=== PATIENT | female | born 1930 | race Caucasian/White ===

== ENCOUNTER 2016-11-12 11:15 | Inpatient (IN) | payer OTHER, MEDICARE ==
[~2016-11-12] VITALS: Ht 152.4 cm; Wt 63.5 kg
[~2016-11-12 11:15] MED LIST: ACIDOPHILUS1 CAP PO; ALOPHEN5 MG PO; ANTIVERT 25 MG25 MG PO; ASPIRIN CHILDRE81 MG PO; ATORVASTATIN CA20 MG PO; ATORVASTATIN CA40 MG PO; AUGMENTIN 500M500 MG PO; CHLORASEPTIC S177 ML PO; DOXYCYCLINE100 MG PO; DRISDOL50000 IU PO; DULCOLAX10 MG PR; DULCOLAX5 MG PO; EPIPEN AUT0.3 MG/0.3 IM; FERATE28 MG PO; FERROUS SULFAT325 M1 PO; FISH OIL500 MG PO; FLEET ENEMA 131 UNIT RC; FOLIC ACID 1 MG PO; FOSAMAX 70MG70 MG PO; IRON325 M1 PO; LEVOTHYROXIN0.025 MG PO; LEVOTHYROXINE0.05 M1 PO; LIDODERM 5% PAT1 PAT EXT; LIDODERM 5% PAT1 PAT TOP; METOPROLOL SUCC25 MG PO; MILK OF MAGNESI30 ML PO; MIRALAX17 GM PO; MUCINEX ER600 MG PO; MULTIVITAMIN1 TAB PO; MYCOSTATIN POWD15 GM TOP; OMEPRAZOLE40 MG PO; OXYCONTIN10 MG PO; PREDNISONE10 MG PO; ROXICODONE5 MG PO; SENNA CON/DOCUS1 TAB PO; Senokot S PO; TUMS500 MG PO; TYLENOL500 MG PO; VITAMIN C500 M3 PO; ZINC50 M1 PO
--- NOTE | 2016-11-12 11:30 | NUR ---
PT JOE FROM HOME FOR SOB THAT STARTED THIS MORNING. SHE WENT TO A SCHEDULED DR BAUER WITH DR SCOTT BECAUSE SHE HAS HAD A COLD X 4-5. PT STATES HER HAD IT FIRST AND [facility] AND [facility]. LUNGS ARE DECREASED B/L AND O2 SATS ARE 97% ON 4LNC
--- NOTE | 2016-11-12 11:31 | ED GENERAL ADULT ---
History of Present Illness General Chief Complaint: Dyspnea (COPD, CHF, Other) Stated Complaint: BIBA SOB Source: patient, family Exam Limitations: patient's age, poor historian, physical impairment Vital Signs & Intake/Output Vital Signs & Intake/Output Vital Signs Date Time Temp Pulse Resp B/P Pulse O2 O2 Flow FiO2 Ox Delivery Rate 11/12 1812 96.8 65 22 130/60 96 Nasal 2.0L Cannula 11/12 1652 96.3 67 22 148/67 98 Nasal 3.0L Cannula 11/12 1613 97.5 67 22 120/62 94 Nasal 2.0L Cannula 11/12 1434 97.8 81 20 132/64 96 Nasal 4.0L Cannula 11/12 1259 88 18 184/77 94 Room Air 11/12 1249 98 Nasal 4.0L Cannula 11/12 1128 99.8 86 24 159/80 97 Nasal 4.0L Cannula Allergies Coded Allergies: codeine (UNKNOWN 11/12/16) Cephalosporins (Intermediate, DIARRHEA 11/12/16) Reconcile Medications Alendronate Sodium 70 MG TABLET 1 TAB PO QW BONES (Reported) in the morning, at least 30 minutes before the first food, beverage, or medication of the day Aspirin (Ecotrin*) 81 MG TABLET.DR 1 TAB PO DAILY HEART (Reported) Atorvastatin Calcium 20 MG TABLET 1 TAB PO DAILY CHOLESTEROL (Reported) Ferrous Sulfate 325 MG (65 MG IRON) TABLET 1 TAB PO DAILY SUPPLEMENT ( Reported) Fish Oil/Borage/Flax/Om3,6,9#1 (Trent 3-6-9 1,200 MG Softgel) 1,200 MG CAPSULE 1 CAP PO DAILY SUPPLEMENT (Reported) Folic Acid 1 MG TABLET 1 TAB PO DAILY SUPPLEMENT (Reported) Levothyroxine Sodium 25 MCG TABLET 1 TAB PO DAILY THYROID (Reported) Metoprolol Succinate 25 MG TAB 1 TAB PO DAILY HEART/BP (Reported) Omeprazole 40 MG CAPSULE.DR 1 CAP PO DAILY GI (Reported) Sennosides (Senna) 8.6 MG TABLET 2 TAB PO DAILY SUPPLEMENT (Reported) Triage Note: PT BIBA FROM HOME FOR SOB THAT STARTED THIS MORNING. SHE WENT TO A SCHEDULED DR APPT WITH DR SCOTT BECAUSE SHE HAS HAD A COLD X 4-5. PT STATES HER HAD IT FIRST AND WENT TO THE [facility] AND WAS TOLD HE HAD THE FLU. LUNGS ARE DECREASED B/L AND O2 SATS ARE 97% ON 4LNC Triage Nurses Notes Reviewed? yes Onset: Abrupt Duration: day(s): Timing: recent history HPI: 11/12/16 86-year-old female presents to the emergency department with difficulty breathing for several days. The onset of the symptoms was abrupt, the duration was several days, the severity was significant as her symptoms required her to come to the emergency department for care. She does admit to a cough that is nonproductive, no chest pain. Subjective fever. Past History Travel History Traveled to [place] past 21 day No Medical History Any Pertinent Medical History? see below for history Neurological: multiple sclerosis EENT: vocal cord paralysis Cardiovascular: hypertension, HYPERCOLESTERALEMIA Respiratory: NONE Gastrointestinal: GERD, CONSTIPATION Hepatic: hepatitis B Musculoskeletal: OSTEOARTHRITIS STAGE II PRESSURE ULCER Psychiatric: NONE Endocrine: NONE Blood Disorders: DENIES Cancer(s): melanoma TUBE HEATER/Reproductive: NONE Other Medical Hx: MS - wheelchair bound, osteoporosis History of MRSA: No History of VRE: Yes History of CDIFF: No Surgical History Surgical History: non-contributory Psychosocial History Who do you live with Spouse Services at Home Home Health Aide, Nursing What is your primary language Latvian Tobacco Use: Never used ETOH Use: denies use Illicit Drug Use: denies illicit drug use Family History Family History, If Any: MOTHER FH: breast cancer FH: lung cancer FATHER FH: tuberculosis Hx Contributory? No Review of Systems Review of Systems Constitutional: Reports: fever. EENTM: Reports: nasal congestion. Respiratory: Reports: short of breath. Cardiovascular: Denies: chest pain. GI: Denies: abdominal pain. Genitourinary: Reports: no symptoms. Musculoskeletal: Reports: no symptoms. Skin: Reports: no symptoms. Neurological/Psychological: Reports: weakness. Hematologic/Endocrine: Reports: no symptoms. Physical Exam Physical Exam General Appearance: alert, awake, anxious, mild distress Head: atraumatic, normal appearance Eyes: Bilateral: normal appearance, PERRL, EOMI. Ears, Nose, Throat: nasal congestion Neck: normal inspection, supple, full range of motion Respiratory: chest non-tender, decreased breath sounds, accessory muscle use, rhonchi Cardiovascular: regular rate/rhythm Peripheral Pulses: 4+ radial (R), 4+ radial (L) Gastrointestinal: non-tender Back: decreased range of motion Extremities: pedal edema Neurologic/Psych: awake, alert, oriented x 3 Skin: intact, normal color, warm/dry Core Measures ACS in differential dx? Yes CVA/TIA Diagnosis: No Severe Sepsis Present: No Septic Shock Present: No Progress Differential Diagnoses I considered the following diagnoses in my evaluation of the patient: [Pneumonia , CHF, PE, acute coronary syndrome, pneumothorax] Plan of Care: Orders Procedure Date/time Status LIPID PANEL 11/13 0600 Active CBC WITHOUT DIFFERENTIAL 11/13 0600 Active BASIC ELECTROLYTES PLUS BUN&CR 11/13 0600 Active Heart Healthy Diet 11/12 D Active TROPONIN LEVEL 11/12 1730 Active EKG 11/12 1730 Active ARTERIAL BLOOD GAS (GEN) 11/12 1711 Complete Pathway - chart 11/12 1537 Active Patient Data 11/12 1440 Active Admit to inpatient 11/12 1433 Active Vital Signs 11/12 1433 Active Intake & Output 11/12 1433 Active Code Status 11/12 1433 Active VIRAL CULTURE 11/12 1146 Active RAPID VIRAL INFLUENZA A 11/12 1141 Complete TROPONIN LEVEL 11/12 1141 Complete COMPREHENSIVE METABOLIC PANEL 11/12 1141 Complete CBC WITHOUT DIFFERENTIAL 11/12 1141 Complete EKG 11/12 1120 Active TRC EVALUATION (GEN) 11/12 UNK Active Pathway - chart 11/12 UNK Active House Staff 11/12 UNK Active VTE Mechanical Prophylaxis 11/12 UNK Active CASE MANAGEMENT CONSULT 11/12 UNK Active Current Medications Sig/Tonya Start time Last Medication Dose Stop Time Status Admin Multivitamins 1 TAB DAILY 11/13 1000 AC (Theragran Vitamins) Laboratory Tests 11/12/16 1755: pH 7.30 *L, pCO2 47 H, pO2 75 L, HCO3 23, ABG O2 Sat (Measured) 94.0 L, Carboxyhemoglobin 0.2 L, O2 Concentration % 2L, O2 Delivery Method N/C, Phlebotomy Draw Site RIGHT RADIAL 11/12/16 1150: Anion Gap 11, Estimated GFR 36 L, BUN/Creatinine Ratio 16.4, Glucose 100 H, Calcium 7.7 L, Total Bilirubin 0.4, AST 56 H, ALT 58 H, Alkaline Phosphatase 89, Troponin I 0.87 *H, Total Protein 6.6, Albumin 3.5, Globulin 3.1, Albumin/ Globulin Ratio 1.1, CBC w Diff NO MAN DIFF REQ, RBC 3.71 L, MCV 87.4, MCH 28.5, RDW 16.3 H, MPV 7.3 L, Gran % 69.0, Lymphocytes % 19.7 L, Monocytes % 10.9 H , Eosinophils % 0.1, Basophils % 0.3, Absolute Granulocytes 3.7, Absolute Lymphocytes 1.1 L, Absolute Monocytes 0.6, Absolute Eosinophils 0, Absolute Basophils 0, PUBS MCHC 32.7 L 11/12/16 1146: Virus Culture Pending Initial ED EKG: nonspecific ST T wave chg Prior EKG: unchanged Departure Departure Disposition: STILL A PATIENT Condition: Stable Clinical Impression Primary Impression: NSTEMI (non-ST elevated myocardial infarction) Secondary Impressions: Bronchitis, Dyspnea, Influenza Referrals: TYLER JANG,JAKUB Hernández (PCP/Family) Departure Forms: Customer Survey General Discharge Information Comments cxr results below PATIENT: LUIS TRIMBLE PRESENT AGE: 86 PATIENT ACCOUNT NO: [id number] : 29 LOCATION: [facility] ORDERING PHYSICIAN: AWA BARFIELD DO SERVICE DATE: 11/12/16 EXAM TYPE: RAD - XRY-PORTABLE CHEST XRAY EXAMINATION: XR PORTABLE CHEST CLINICAL INFORMATION: Productive cough COMPARISON: April 05, 2015 and studies dating back to June 17, 2013 TECHNIQUE: Portable AP view of the chest was obtained. FINDINGS: Film rotated making evaluation of mediastinal difficult. There appears be some minor atelectasis at the left base. Patient status post previous axillary surgery. No pneumothorax or significant pleural effusion is seen. The cardiopericardial silhouette appears enlarged. No evidence of pulmonary edema. IMPRESSION: Left base disease which may be related to atelectasis or small focus of pneumonitis. Cardiomegaly without pulmonary edema. DICTATED BY: LARISSA CANSECO MD DATE/TIME DICTATED:11/12/161233 PIE CHEF:XIOMARA DATE/TIME TRANSCRIBED:11/12/161233 CONFIDENTIAL, DO NOT COPY WITHOUT APPROPRIATE AUTHORIZATION. <Electronically signed in Other Vendor System> SIGNED BY: LARISSA CANSECO MD 11/12/16 1241 Admission Note Spoke With: CAMELIA ERICKSON MD Documentation of Exam: Documentation of any treatments & extenuating circumstances including Concerns Regarding Discharge (functional status, medication knowledge or non-compliance, living conditions, etc.) that warrant an admission rather than observation: [The patient needs admission for telemetry monitoring, cardiology consultation, serial troponins and EKGs, inpatient echocardiogram, she also needs nebulizer treatments and Tamiflu. Discharge at this time would be unsafe as she had a non -ST segment elevation CO.] Critical Care Note Critical Care Note Critical Care Time: 30-74 min Comments: She was placed on a monitor. She was given aspirin. She was given albuterol and Atrovent nebulizers. She was treated with IV Solu-Medrol. She was seen and evaluated by the boston cutter in the emergency department. She is being admitted to the telemetry unit for further care.
--- NOTE | 2016-11-12 11:34 | NUR ---
PT HAS PRODUCTIVE COUGH ALSO. DENIES CP
--- NOTE | 2016-11-12 11:47 | NUR ---
FLU SWAB SENT
[2016-11-12 11:59] LABS: ABSOLUTE BASOPHIL COUNT 0 /CUMM (0.0-0.2); ABSOLUTE EOSINOPHIL COUNT 0 /CUMM (0.0-0.7); ABSOLUTE GRANULOCYTE CT 3.7 /CUMM (1.4-6.5); ABSOLUTE LYMPH COUNT 1.1 /CUMM (1.2-3.4); ABSOLUTE MONOCYTE COUNT 0.6 /CUMM (0.10-0.60); BASOPHIL % 0.3 % (0.0-2.0); EOSINOPHIL % 0.1 % (0-5); HEMATOCRIT 32.4 % (37-47); MEAN CORPUSCULAR HGB 28.5 PG (27.0-31.0); MEAN CORPUSCULAR HGB CONC 32.7 G/DL (33.0-37.0); MEAN CORPUSCULAR VOLUME 87.4 FL (81.0-99.0); MEAN PLATELET VOLUME 7.3 FL (7.4-10.4); PLATELET COUNT 240 /CUMM (130-400); RBC DISTRIBUTION WIDTH 16.3 % (11.5-14.5); RED BLOOD CELL CT 3.71 /CUMM (4.20-5.40); WHITE BLOOD CELL COUNT 5.4 /CUMM (4.8-10.8)
--- NOTE | 2016-11-12 12:07 | NUR ---
DR BARFIELD AT BEDSIDE FOR EVAL
--- NOTE | 2016-11-12 12:13 | NUR ---
PCXR AT BEDSIDE
--- NOTE | 2016-11-12 12:18 | NUR ---
CRITICAL TEST RESULTS [id number] LUIS TRIMBLE 86 F TESTS AND RESULTS: FLU A Results received and read back by: ASHKAN QUINONES Results received date and time: 11/12/16 1218 The following provider was notified of the results, and read the results back: DR BARFIELD Notified date and time: 11/12/16 at 1216
--- NOTE | 2016-11-12 12:34 | NUR ---
RT CALLED FOR TX
--- NOTE | 2016-11-12 12:41 | RADIOLOGY REPORT ---
EXAMINATION: XR PORTABLE CHEST CLINICAL INFORMATION: Productive cough COMPARISON: April 05, 2015 and studies dating back to June 17, 2013 TECHNIQUE: Portable AP view of the chest was obtained. FINDINGS: Film rotated making evaluation of mediastinal difficult. There appears be some minor atelectasis at the left base. Patient status post previous axillary surgery. No pneumothorax or significant pleural effusion is seen. The cardiopericardial silhouette appears enlarged. No evidence of pulmonary edema. IMPRESSION: Left base disease which may be related to atelectasis or small focus of pneumonitis. Cardiomegaly without pulmonary edema.
--- NOTE | 2016-11-12 12:45 | NUR ---
PT MEDICATED WITH 125 MG SOLUMEDROL IV. RT AT BEDSIDE FOR NEB TX
--- NOTE | 2016-11-12 13:15 | NUR ---
CRITICAL TEST RESULTS [id number] LUIS TRIMBLE F TESTS AND RESULTS: TROP 0.87 Results received and read back by: RICK GONZALEZ Results received date and time: 11/12/16 1315 The following provider was notified of the results, and read the results back: Notified date and time: 11/12/16 at 1316
--- NOTE | 2016-11-12 13:31 | NUR ---
LUNG SOUNDS NOT TIGHT PRIOR TO TX. DR BARFIELD AWARE THAT ADDITIONAL NEB NEEDED
--- NOTE | 2016-11-12 13:44 | NUR ---
DR BARFIELD AT BEDSIDE FOR POC
--- NOTE | 2016-11-12 14:53 | History & Physical ---
CHEMO OLSON MD 11/12/16 1453: General Information and HPI MD Statement: I have seen and personally examined LUIS TRIMBLE and documented this H&P. The patient is a 86 year old F who presented with a patient stated chief complaint of [shortness of breath]. Source of Information: patient Exam Limitations: no limitations History of Present Illness: 86-year-old female with PMH of HTN, HLD, MS, hep B, GERD, constipation, CKD, presented with "cold for 4-5 days" and worsening shortness of breath since this morning. She went to see her PCP this morning, and was told to have a fever of 102 (pt not sure if she remembers correctly) and was put on oxygen and told to come to ED. She was noticably short of breath at rest while examined, and also appeared somnolent, but oriented and responded to questions appropriately. Both her and her did not get the flu shot this year. Her had the flu last week. He was not treated for the flu. She has cough productive of white sputum, that started on friday. She took cough suppresant yesterday with some relief. She started having wheezing this morning. She was not able to sleep and eat for the past couple of days (since friday) due to dry heaves, which she is not having currently. Denies chills, myalgia (has chronic bilateral leg ache). Given her MS, she ambulates with a wheelchair, and she has certified home health aide that comes twice a day. She lives with her . She has hoarse voice at baseline. Allergies/Medications Allergies: Coded Allergies: codeine (UNKNOWN 11/12/16) Cephalosporins (Intermediate, DIARRHEA 11/12/16) Home Med list Alendronate Sodium 70 MG TABLET 1 TAB PO QW BONES (Reported) in the morning, at least 30 minutes before the first food, beverage, or medication of the day Aspirin (Ecotrin*) 81 MG TABLET.DR 1 TAB PO DAILY HEART (Reported) Atorvastatin Calcium 20 MG TABLET 1 TAB PO DAILY CHOLESTEROL (Reported) Ferrous Sulfate 325 MG (65 MG IRON) TABLET 1 TAB PO DAILY SUPPLEMENT ( Reported) Fish Oil/Borage/Flax/Om3,6,9#1 (Bern 3-6-9 1,200 MG Softgel) 1,200 MG CAPSULE 1 CAP PO DAILY SUPPLEMENT (Reported) Folic Acid 1 MG TABLET 1 TAB PO DAILY SUPPLEMENT (Reported) Levothyroxine Sodium 25 MCG TABLET 1 TAB PO DAILY THYROID (Reported) Metoprolol Succinate 25 MG TAB 1 TAB PO DAILY HEART/BP (Reported) Omeprazole 40 MG CAPSULE.DR 1 CAP PO DAILY GI (Reported) Sennosides (Senna) 8.6 MG TABLET 2 TAB PO DAILY SUPPLEMENT (Reported) Past History Travel History Traveled to [place] past 21 day No Medical History Neurological: multiple sclerosis EENT: vocal cord paralysis Cardiovascular: hypertension, HYPERCOLESTERALEMIA Respiratory: NONE Gastrointestinal: GERD, CONSTIPATION Hepatic: hepatitis B Musculoskeletal: OSTEOARTHRITIS STAGE II PRESSURE ULCER Psychiatric: NONE Endocrine: NONE Blood Disorders: DENIES Cancer(s): melanoma RN PRIVATE DUTY/Reproductive: NONE Other Medical Hx: MS - wheelchair bound, osteoporosis History of MRSA: No History of VRE: Yes History of CDIFF: No Surgical History Surgical History: non-contributory Past Family/Social History Family History Relations & Conditions if any MOTHER FH: breast cancer FH: lung cancer FATHER FH: tuberculosis Psychosocial History Where do you live? Home Services at Home: Home Health Aide, Nursing ETOH Use: denies use Illicit Drug Use: denies illicit drug use Functional Ability Ambulation: wheelchair due to MS Review of Systems Review of Systems Constitutional: Denies: chills, fever. EENTM: Denies: visual changes. Cardiovascular: Denies: chest pain, palpitations. Respiratory: Reports: cough, short of breath, sputum production. GI: Denies: abdominal pain, bloating, constipation, diarrhea. Genitourinary: Denies: dysuria. Exam & Diagnostic Data Last 24 Hrs of Vital Signs/I&O Vital Signs Date Time Temp Pulse Resp B/P Pulse O2 O2 Flow FiO2 Ox Delivery Rate 11/12 1812 96.8 65 22 130/60 96 Nasal 2.0L Cannula 11/12 1652 96.3 67 22 148/67 98 Nasal 3.0L Cannula 11/12 1613 97.5 67 22 120/62 94 Nasal 2.0L Cannula 11/12 1434 97.8 81 20 132/64 96 Nasal 4.0L Cannula 11/12 1259 88 18 184/77 94 Room Air 11/12 1249 98 Nasal 4.0L Cannula 11/12 1128 99.8 86 24 159/80 97 Nasal 4.0L Cannula Intake & Output 02/14 1600 11/12 0800 11/12 0000 Intake Total 50 Output Total 200 Balance -150 Intake, Oral 50 Output, Urine 200 Patient 64.41 kg Weight Physical Exam General Appearance Alert, Oriented X3, Cooperative, noticably short of breath Skin No Significant Lesion HEENT Atraumatic Neck Supple Lymphatic Axillary nl, Cervical nl Cardiovascular Regular Rate, Normal S1, Normal S2, No Murmurs, Gallops, Rubs Lungs diffuse wheezing and rhonchi Abdomen Normal Bowel Sounds, Soft, No Tenderness Neurological Normal Speech Extremities 2+ pitting edema Last 24 Hrs of Labs/Ron: Laboratory Tests 11/12/16 1755: pH 7.30 *L, pCO2 47 H, pO2 75 L, HCO3 23, ABG O2 Sat (Measured) 94.0 L, Carboxyhemoglobin 0.2 L, O2 Concentration % 2L, O2 Delivery Method N/C, Phlebotomy Draw Site RIGHT RADIAL 11/12/16 1745: Troponin I 0.72 *H 11/12/16 1150: Anion Gap 11, Estimated GFR 36 L, BUN/Creatinine Ratio 16.4, Glucose 100 H, Calcium 7.7 L, Total Bilirubin 0.4, AST 56 H, ALT 58 H, Alkaline Phosphatase 89, Troponin I 0.87 *H, Total Protein 6.6, Albumin 3.5, Globulin 3.1, Albumin/ Globulin Ratio 1.1, CBC w Diff NO MAN DIFF REQ, RBC 3.71 L, MCV 87.4, MCH 28.5, RDW 16.3 H, MPV 7.3 L, Gran % 69.0, Lymphocytes % 19.7 L, Monocytes % 10.9 H , Eosinophils % 0.1, Basophils % 0.3, Absolute Granulocytes 3.7, Absolute Lymphocytes 1.1 L, Absolute Monocytes 0.6, Absolute Eosinophils 0, Absolute Basophils 0, PUBS MCHC 32.7 L 11/12/16 1146: Virus Culture Pending Diagnostic Data EKG Results T wave flattening V2-V5 CXR Results IMPRESSION: Left base disease which may be related to atelectasis or small focus of pneumonitis. Cardiomegaly without pulmonary edema. Assessment/Plan Assessment: 86-year-old female with PMH of HTN, HLD, MS, hep B, GERD, constipation, CKD, presented with "cold for 4-5 days" and worsening shortness of breath since this morning. Trop found to be elevated at 0.87 with T wave flattening in V2-V5. Problem list: # Troponinemia most likely demand ischemia vs renal dysfunction # Positive flu # Mild transaminitis # Chronic kidney disease #Troponinemia most likely demand ischemia vs renal dysfunction - Last echo december 2014: stage 1 diastolic dysfunction, LVEF > 65% - Trop 0.87 --> 0.72 * Serial EKG and trop * Dr. Gongora consulted * Consider repeat echo * Start Aspirin # Positive flu * Tamiflu # Mild transaminitis - AST 56 ALT 58. Was 26 and 21 in May 2016 # Chronic kidney disease - BUN/Cr: 23H/1.4H. Was 23/1.3 in May 2016 # Hypertension * Continue metoprolol succinate 25 mg daily # Hyperlipidemia * Continue atorvastatin 20 daily # Hypothyroidism * Continue levothyroxine 25 mg daily # Home meds * Continue senna * Continue fish oil, folic acid, iron * Continue alendronate weekly (qmon) * Continue aspirin 81 mg daily * Continue omeprazole 40 mg daily Diet: heart healthy DVT ppx: mech and pharm DNR/DNI As Ranked By This Provider Problem List: 1. Influenza 2. NSTEMI (non-ST elevated myocardial infarction) Core Measures/Miscellaneous Acute Coronary Syndrome ACS Diagnosis: Yes Cerebrovascular Accident CVA/TIA Diagnosis: No Congestive Heart Failure CHF Diagnosis: No Venous Thromboembolism VTE Risk Factors: Acute medical illness, Age > 40 VTE Prophylaxis Ordered Inpt: Mech & Pharm No Mech VTE prophylaxis d/t: No contraindications No VTE Pharm Prophylaxis d/t: No contraindications VTE Diagnosis: No VTE Type: NONE VTE Confirmed by (Test): NONE Severe Sepsis Severe Sepsis Present: No Septic Shock Septic Shock Present: No Miscellaneous Documentation Attending Case Discussed With: Dr. Alva Primary Care Physician: TYLER JANG,JAKUB Hernández Patient sees these Specialists Dr. Gongora cardiology Dr. Orosco neurology Dr. Guardado pulmonology Level of Patient Care: Telemetry BENI CERVANTES 11/12/161938: Resident Review Statement Resident Statement: examined this patient, discussed with internist medical doctor md, agreed with internist medical doctor md Other Findings: is an 86 yo women with PMHx. of MS (Wheelchair bound), HTN, HLD, hep B, CKD, who presented to ed with c/o of SOB since Friday. Patient has progressively worsening SOB, associated with cough, worse at night, she had sick contact with her who diagnosed with FLU last week. She report loss of appetite with dry heaves. She denies fever, chills, chest pain, palpitation, dysphagia, and there is no change of urinary or bowel habit. she tried cough suryp at home with minimal benifit. Her vitals was stable except for low grade fever 99.8, mildly elevated BP. On examination: she is in sever distress, awake, alert chest: bilateral ronchi cvs: s1, s2 BL lE: normal pulse, no edema Labs pertinent to normocytic anemia, BUN 23, CREAT:1.4, GLUCOSE:100, corrected ca: 8.1 Troponin: 0.87 CXR:Left base disease which may be related to atelectasis or small focus of pneumonitis. Cardiomegaly without pulmonary edema. Assessment and plan: #Acute bronchitis 2/2 infleunza #Elevated troponin #CKD Plan: Will admitt the patient to telemetry floor Serial troponin and EKG Will start Tamiflu, renally adjusted Cardiology consult Echocardiogram Sputum Cx DVT ppx: sc heparin DNR/DNI FOX ALVA MD 11/12/16 2240: Attending MD Review Statement Attending Statement Attending MD Statement: examined this patient, discuss w/resident/PA/CIRCULAR KNITTER, agreed w/resident/PA/CIRCULAR KNITTER, reviewed EMR data (avail), discussed with nursing, amended to note Attending Assessment/Plan: Patient is an 86-year-old female with history of DVT not on anticoagulation who presents to the ED with complaints of shortness of breath. On arrival she was awake dysphagia, to staff. A history significant for currently influenza infection in her . She was tested for influenza emergency room and tested positive. Laboratory data also revealed mildly elevated troponins with nonspecific T-wave abnormalities in her inferior leads. She was started on Tamiflu and referred to the inpatient medical service for further management. While in the emergency room she became more lethargic according to nursing staff. When I evaluated the patient was markedly lethargic. She was arousable. She denied pain. He did admit to shortness of breath. She has no jugular distention on exam. Breath sounds are diminished but otherwise clear to auscultation. Abdomen was soft and nontender. She has bilateral 1+ pedal edema. Problems: 1. Acute bronchitis secondary to influenza. 2. Abnormal troponins likely secondary to demand ischemia 3. Metabolic encephalopathy likely secondary to poor. 4. Chronic kidney disease 5. History of deep vein thrombosis Plan: -Admit to the inpatient medical service. -Place on telemetry monitoring, trend troponins, obtain cardiology consultation. -ABG ordered. Recommended BiPAP therapy overnight if she is retaining CO2 -We'll discuss goals of care with the family.
--- NOTE | 2016-11-12 15:15 | NUR ---
PT HAS BED ASSIGNMENT 176-1
--- NOTE | 2016-11-12 15:48 | NUR ---
HOUSE STAFF AT BEDSIDE
[2016-11-12] MEDS ORDERED: LEVOTHYROXINE25 MCG PO (16:30)
[2016-11-12] MEDS ORDERED: ATORVASTATIN CA20 M1 PO (16:30)
[2016-11-12] MEDS ORDERED: OMEPRAZOLE40 M1 PO (16:31)
[2016-11-12] MEDS ORDERED: METOPROLOL SUCC25 M1 PO (16:31)
[2016-11-12] MEDS ORDERED: ALENDRONATE SOD70 M2 PO (16:32)
[2016-11-12] MEDS ORDERED: FOLIC ACID1 M1 PO (16:33)
--- NOTE | 2016-11-12 16:48 | NUR ---
REPORT CALLED TO [facility] ON 1N, TRANSPORT BOOKED.
--- NOTE | 2016-11-12 17:06 | NUR ---
DR ENGEL AT BEDSIDE
--- NOTE | 2016-11-12 17:31 | NUR ---
DR IRVIN AT BEDSIDE
--- NOTE | 2016-11-12 17:33 | NUR ---
PER MED STUDENT - PT'S DAUGHTER BROUGHT IN HER MEDS
[2016-11-12] MEDS ORDERED: ASPIRIN EC81 M1 PO (17:39)
[2016-11-12] MEDS ORDERED: OMEGA 3-6-9 11200 MG PO (17:41)
[2016-11-12] MEDS ORDERED: FERROUS SULFAT325 M3 PO (17:42)
[2016-11-12] MEDS ORDERED: SENNA8.6 M3 PO (17:42)
--- NOTE | 2016-11-12 17:49 | NUR ---
RT CALLED AGAIN FOR AMG AND AT BEDSIDE
--- NOTE | 2016-11-12 17:50 | Cons- Cardiology ---
General Information and HPI Consulting Request Date of Consult: 11/12/16 Requested By: CAMELIA ERICKSON MD Reason for Consult: Positive troponin in a patient admitted with influenza and bronchitis. Source of Information: patient, family, old records Exam Limitations: poor historian History of Present Illness: I am asked to see this 86-year-old female because of abnormal troponin in the setting of a respiratory illness and influenza. I have seen her couple of times in the hospital but not followed her actively in the office. Her last admission was about 2 years ago. At that time she came in with respiratory distress and hypoxia. Her cardiac evaluation was negative including negative cardiac enzymes and echocardiogram that showed LVH with good left ventricular systolic function, some thickening of her mitral and aortic valves. On a previous admission about a year prior she had one single mildly abnormal troponin and again an echocardiogram did not show any major abnormalities. The patient has underlying multiple sclerosis and is some somewhat disabled. Her apparently has been sick with influenza for the past couple of days and today the patient complained of difficulty breathing and was brought to the emergency room. There she was found to be positive for influenza as well and her initial troponin is 0.87. Her EKG does not show any significant abnormalities. The patient is not complaining of chest pain. The patient is lethargic and unable to give a good history but her daughter was present and was able to fill in details. Allergies/Medications Allergies: Coded Allergies: codeine (UNKNOWN 11/12/16) Cephalosporins (Intermediate, DIARRHEA 11/12/16) Home Med List: Alendronate Sodium 70 MG TABLET 1 TAB PO QW BONES (Reported) in the morning, at least 30 minutes before the first food, beverage, or medication of the day Aspirin (Ecotrin*) 81 MG TABLET.DR 1 TAB PO DAILY HEART (Reported) Atorvastatin Calcium 20 MG TABLET 1 TAB PO DAILY CHOLESTEROL (Reported) Ferrous Sulfate 325 MG (65 MG IRON) TABLET 1 TAB PO DAILY SUPPLEMENT ( Reported) Fish Oil/Borage/Flax/Om3,6,9#1 ([place] 3-6-9 1,200 MG Softgel) 1,200 MG CAPSULE 1 CAP PO DAILY SUPPLEMENT (Reported) Folic Acid 1 MG TABLET 1 TAB PO DAILY SUPPLEMENT (Reported) Levothyroxine Sodium 25 MCG TABLET 1 TAB PO DAILY THYROID (Reported) Metoprolol Succinate 25 MG TAB 1 TAB PO DAILY HEART/BP (Reported) Omeprazole 40 MG CAPSULE.DR 1 CAP PO DAILY GI (Reported) Sennosides (Senna) 8.6 MG TABLET 2 TAB PO DAILY SUPPLEMENT (Reported) Current Medications: Current Medications Sig/Tonya Start time Last Medication Dose Route Stop Time Status Admin Albuterol Sulfate 3 ML BID 11/13 1015 AC 11/13 INH 1039 Albuterol Sulfate 3 ML ONCE ONE 11/12 1230 DC 11/12 INH 11/12 1231 1249 Alendronate Sodium 70 MG QMON 11/18 0700 AC PO Alendronate Sodium 70 MG .[QW] 11/12 1845 DC PO Aspirin 325 MG ONCE ONE 11/12 1330 DC 11/12 PO 11/12 1331 1337 Aspirin Buffered 81 MG DAILY 11/13 1000 AC PO Atorvastatin Calcium 20 MG 1700 11/13 1700 AC PO Ferrous Sulfate 325 MG DAILY 11/13 1000 AC PO Fish Oil 1,050 MG DAILY 11/13 1000 AC PO Folic Acid 1 MG DAILY 11/13 1000 AC PO Heparin Sodium 5,000 UNIT Q8 11/13 0726 AC 11/13 (Porcine) SC 0826 Ipratropium [place] 2.5 ML ONCE ONE 11/12 1245 DC 11/12 INH 11/12 1246 1249 Levothyroxine Sodium 0.025 MG DAILY 11/13 1000 AC 11/13 PO 0823 Methylprednisolone 125 MG ONCE ONE 11/12 1245 DC 11/12 IV 11/12 1246 1245 Metoprolol Succinate 25 MG DAILY 11/13 1000 CAN PO Metoprolol Succinate 25 MG DAILY 11/13 1000 AC PO Multivitamins 1 TAB DAILY 11/13 1000 AC PO Omeprazole 40 MG DAILY AC 11/13 0700 AC 11/13 PO 0618 Oseltamivir Phosphate 30 MG BID 11/12 2200 AC 11/12 PO 11/16 2159 2046 Oseltamivir Phosphate 30 MG DAILY 11/12 1829 CAN PO 11/16 1828 Senna 187 MG AT BEDTIME PRN 11/12 1900 AC PO Review of Systems Review of Systems: Unable to be obtained at this time Past History Travel History Traveled to [place] past 21 day No Medical History Neurological: multiple sclerosis EENT: vocal cord paralysis Cardiovascular: hypertension, HYPERCOLESTERALEMIA Respiratory: NONE Gastrointestinal: GERD, CONSTIPATION Hepatic: hepatitis B Musculoskeletal: OSTEOARTHRITIS STAGE II PRESSURE ULCER Psychiatric: NONE Endocrine: NONE Blood Disorders: DENIES Cancer(s): melanoma 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 Normal left ventricular ejection fraction visually estimated at >65 %. Abnormal relaxation filling pattern of the left ventricle for age (stage 1 diastolic dysfunction). Normal left atrial size. Mild thickening/calcification of the mitral valve leaflets. Focal thickening of the aortic valve cusps. No aortic stenosis. No evidence of pulmonary hypertension. Aortic root and ascending aorta upper normal limits in size. Exam & Diagnostic Data Vital Signs and I&O Vital Signs Date Time Temp Pulse Resp B/P Pulse O2 O2 Flow FiO2 Ox Delivery Rate 11/12 1652 96.3 67 22 148/67 98 Nasal 3.0L Cannula 11/12 1613 97.5 67 22 120/62 94 Nasal 2.0L Cannula 11/12 1434 97.8 81 20 132/64 96 Nasal 4.0L Cannula 11/12 1259 88 18 184/77 94 Room Air 11/12 1249 98 Nasal 4.0L Cannula 11/12 1128 99.8 86 24 159/80 97 Nasal 4.0L Cannula Intake & Output 11/12 1600 11/12 0800 11/12 0000 11/11 1600 11/11 0800 11/11 0000 Intake Total 50 Output Total 200 Balance -150 Intake, Oral 50 Output, Urine 200 Patient 142 lb Weight Physical Exam: The patient is Lethargic at this time. She is arousable. She has no specific complaints. HEENT exam is grossly normal. Neck veins are nondistended Chest reveals a few rhonchi to limited exam Heart reveals regular rhythm and no murmurs Abdomen is nontender Extremities reveal no edema Neurologic: She is lethargic but arousable. She is moving all extremities spontaneously. Labs/Ron Results: Laboratory Tests 11/12 11/12 1150 1146 Chemistry Sodium (137 - 145 mmol/L) 138 Potassium (3.5 - 5.1 mmol/L) 4.2 Chloride (98 - 107 mmol/L) 102 Carbon Dioxide (22 - 30 mmol/L) 25 Anion Gap (5 - 16) 11 BUN (7 - 17 mg/dL) 23 H Creatinine (0.5 - 1.0 mg/dL) 1.4 H Estimated GFR (>60 ml/min) 36 L BUN/Creatinine Ratio (7 - 25 %) 16.4 Glucose (65 - 99 mg/dL) 100 H Calcium (8.4 - 10.2 mg/dL) 7.7 L Total Bilirubin (0.2 - 1.3 mg/dL) 0.4 AST (14 - 36 U/L) 56 H ALT (9 - 52 U/L) 58 H Alkaline Phosphatase (<127 U/L) 89 Troponin I (< 0.11 ng/ml) 0.87 *H Total Protein (6.3 - 8.2 g/dL) 6.6 Albumin (3.5 - 5.0 g/dL) 3.5 Globulin (1.9 - 4.2 gm/dL) 3.1 Albumin/Globulin Ratio (1.1 - 2.2 %) 1.1 Hematology CBC w Diff NO MAN DIFF REQ WBC (4.8 - 10.8 /CUMM) 5.4 RBC (4.20 - 5.40 /CUMM) 3.71 L Hgb (12.0 - 16.0 G/DL) 10.6 L Hct (37 - 47 %) 32.4 L MCV (81.0 - 99.0 FL) 87.4 MCH (27.0 - 31.0 PG) 28.5 RDW (11.5 - 14.5 %) 16.3 H Plt Count (130 - 400 /CUMM) 240 MPV (7.4 - 10.4 FL) 7.3 L Gran % (42.2 - 75.2 %) 69.0 Lymphocytes % (20.5 - 51.1 %) 19.7 L Monocytes % (1.7 - 9.3 %) 10.9 H Eosinophils % (0 - 5 %) 0.1 Basophils % (0.0 - 2.0 %) 0.3 Absolute Granulocytes (1.4 - 6.5 /CUMM) 3.7 Absolute Lymphocytes (1.2 - 3.4 /CUMM) 1.1 L Absolute Monocytes (0.10 - 0.60 /CUMM) 0.6 Absolute Eosinophils (0.0 - 0.7 /CUMM) 0 Absolute Basophils (0.0 - 0.2 /CUMM) 0 PUBS MCHC (33.0 - 37.0 G/DL) 32.7 L Serology Virus Culture Pending Diagnostic Data EKG Results EKG shows sinus rhythm a rate of 80. There is some artifact on the tracing but there are no significant abnormalities noted. CXR Results PATIENT: LUIS TRIMBLE PRESENT AGE: 86 PATIENT ACCOUNT NO: [id number] : 29 LOCATION: [facility] ORDERING PHYSICIAN: AWA BARFIELD DO SERVICE DATE: 11/12/16 EXAM TYPE: RAD - XRY-PORTABLE CHEST XRAY EXAMINATION: XR PORTABLE CHEST CLINICAL INFORMATION: Productive cough COMPARISON: April 05, 2015 and studies dating back to June 17, 2013 TECHNIQUE: Portable AP view of the chest was obtained. FINDINGS: Film rotated making evaluation of mediastinal difficult. There appears be some minor atelectasis at the left base. Patient status post previous axillary surgery. No pneumothorax or significant pleural effusion is seen. The cardiopericardial silhouette appears enlarged. No evidence of pulmonary edema. IMPRESSION: Left base disease which may be related to atelectasis or small focus of pneumonitis. Cardiomegaly without pulmonary edema. DICTATED BY: LARISSA CANSECO MD DATE/TIME DICTATED:11/12/161233 RN SURGICAL:XIOMARA DATE/TIME TRANSCRIBED:11/12/161233 CONFIDENTIAL, DO NOT COPY WITHOUT APPROPRIATE AUTHORIZATION. <Electronically signed in Other Vendor System> SIGNED BY: LARISSA CANSECO MD 11/12/16 1241 Assessment/Plan Assessment/Plan The patient presents with bronchitis and positive influenza test. She has a positive troponin of 0.87. She's had no chest pain and she has no acute EKG changes. She is 86 years old and significantly debilitated. I would recommend just observation for now. I would give her aspirin but not full anticoagulation. An echocardiogram would be appropriate considering the troponin rise. I think she can go to to telemetry floor for further monitoring. I would recommend being very conservative in her cardiac evaluation at this time. Consult Acknowledgment - Thank you for your consult request.
--- NOTE | 2016-11-12 18:24 | NUR ---
RESIDENT PAGED AT [phone] TO DISCUSS ABG RESULTS, AWAITING CALLBACK
--- NOTE | 2016-11-12 18:32 | NUR ---
TELE CLEAN ENERGY POLICY ANALYST PAGED RE:GEO, STATES PT OK FOR TELE. RESP PAGED, STATING DR ENGEL DOES NOT WANT ANY ACTION AT THIS TIME. TRANSPORT BOOKED.
--- NOTE | 2016-11-12 18:57 | NUR ---
CRITICAL TEST RESULTS [id number] LUIS TRIMBLE 86 F TESTS AND RESULTS: TROP 0.72 Results received and read back by: ASHKAN QUINONES Results received date and time: 11/12/161857 The following provider was notified of the results, and read the results back: TELE TOBACCO SWEEPER PAGED AT [phone] Notified date and time: 11/12/16 at 1378
[2016-11-12 19:10] VITALS: BP 134/80
[2016-11-13 00:27] VITALS: BP 118/60
--- NOTE | 2016-11-13 06:36 | PN- Student ---
Subjective Subjective: Source: Patient History of Present Illness: Ms. Mcleod is a 86 y/o patient, DNR/DNI, that presented to the [facility] yesterday with a chief complaint of flu-like symptoms. The patient has a PMHx of MS, HTN, HyperCholesterolemia, GERD, Hep B, Melanoma and a previous VRE infection. The patient mentioned that she started having symptoms 4-5 days ago but this morning is when she started complaining of shortness of breath. When she visited her physician's appointment with Dr. Osorio he told her that she should go to the hospital given her condition. The patient mentioned that her was Flu (+) last week and that she probably got it from him. The patient denied any recent flu shots and mentioned that she does not take it because the last time she developed a cough that lasted around a month. The patient has a productive cough which she describes as white in color and denies any fever/chill episodes. Allergies/Medications: Allergies -Alendronate Sodium (70 MG TABLET 1 TAB PO QW) -Aspirin (81 MG TABLET. 1 TAB PO DAILY) -Atorvastatin Calcium (20 MG TABLET 1 TAB PO DAILY CHOLESTEROL) -Ferrous Sulfate (325 MG TABLET 1 TAB PO) -Fish Oil/Borage/Flax/Om3,6,9#1 (1,200 MG CAPSULE 1 CAP PO DAILY SUPPLEMENT) -Folic Acid (1 MG TABLET 1 TAB PO DAILY SUPPLEMENT) -Levothyroxine Sodium (25 MCG TABLET 1 TAB PO DAILY) -Metoprolol Succinate (25 MG TAB 1 TAB PO DAILY) -Omeprazole (40 MG CAPSULE. 1 CAP PO DAILY) -Sennosides (8.6 MG TABLET 2 TAB PO DAILY) Past Medical Hx: Travel History Patient denies any trips outside of the [facility]. Medical History Neurological- Multiple Sclerosis (Sees Dr. 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 Home Who Do You Live With? Services at Home: Health Aide; Nurse Primary Language: German Smoking Status: Denies smoking EtOH Use: Denies alchol use Illicit Drug Use: Denies any use of Illicit drugs Functional Ability: Ambulation: Wheel-chair bound Review of Systems: General: Acute respiratory distress. The patient has a mild fever and is alert and oriented X3, but drowsy HEENT: NC/AT; patient denies any visual changes or double vision Cardiovascular: Denies chest pain and palpitations Respiratory: Refer to HPI GI: Denies abdominal pain, constipation or nausea Genitourinary: Denies dysuria or urine color changes Objective Objective: Current Medications Sig/Tonya Start time Last Medication Dose Route Stop Time Status Admin Albuterol Sulfate 3 ML ONCE ONE 11/12 1230 DC 11/12 INH 11/12 1231 1249 Alendronate Sodium 70 MG QMON 11/18 0700 AC PO Alendronate Sodium 70 MG .[QW] 11/12 1845 DC PO Aspirin 325 MG ONCE ONE 11/12 1330 DC 11/12 PO 11/12 1331 1337 Aspirin Buffered 81 MG DAILY 11/13 1000 AC PO Atorvastatin Calcium 20 MG 1700 11/13 1700 AC PO Ferrous Sulfate 325 MG DAILY 11/13 1000 AC PO Fish Oil 1,050 MG DAILY 11/13 1000 AC PO Folic Acid 1 MG DAILY 11/13 1000 AC PO Ipratropium [place] 2.5 ML ONCE ONE 11/12 1245 DC 11/12 INH 11/12 1246 1249 Levothyroxine Sodium 0.025 MG DAILY 11/13 1000 AC PO Methylprednisolone 125 MG ONCE ONE 11/12 1245 DC 11/12 IV 11/12 1246 1245 Metoprolol Succinate 25 MG DAILY 11/13 1000 CAN PO Metoprolol Succinate 100 MG DAILY 11/13 1000 UNV PO Multivitamins 1 TAB DAILY 11/13 1000 AC PO Omeprazole 40 MG DAILY AC 11/13 0700 AC 11/13 PO 0618 Oseltamivir Phosphate 30 MG BID 11/12 2200 AC 11/12 PO 11/16 2159 2046 Oseltamivir Phosphate 30 MG DAILY 11/12 1829 CAN PO 11/16 1828 Senna 187 MG AT BEDTIME PRN 11/12 1900 AC PO Vital Signs Date Time Temp Pulse Resp B/P Pulse O2 O2 Flow FiO2 Ox Delivery Rate 11/13 0539 56 99 11/13 0154 49 98 11/13 0027 98.0 56 20 118/60 96 BIPAP 11/13 0000 BIPAP 11/12 2321 56 96 11/120 96 Nasal 4.0L Cannula 11/12 1909 97.1 62 20 134/80 20 Nasal 4.0L Cannula 11/12 1812 96.8 65 22 130/60 96 Nasal 2.0L Cannula 11/12 1652 96.3 67 22 148/67 98 Nasal 3.0L Cannula 11/12 1613 97.5 67 22 120/62 94 Nasal 2.0L Cannula 11/12 1434 97.8 81 20 132/64 96 Nasal 4.0L Cannula 11/12 1259 88 18 184/77 94 Room Air 11/12 1249 98 Nasal 4.0L Cannula 11/12 1128 99.8 86 24 159/80 97 Nasal 4.0L Cannula Intake & Output 11/13 0800 11/13 0000 11/12 1600 Intake Total 120 50 Output Total 200 Balance 120 -150 Intake, Oral 120 50 Number 1 Bowel Movements Output, Urine 200 Patient 140 lb 142 lb Weight Physical Examination: General: Patient is in acute respiratory distress, drowsy, alert and oriented X3 HEENT: EOMI, PERRL, NC/AT Neck: Supple Lungs: Diffuse wheezes bilaterally with mild bibasillar crackles CV: Normal S1, S2 were heard; Normal rate; No murmurs or gallops were appreciated GI: Normal bowel sounds; no masses were felt upon light/deep palpation Lower Extremities: no pitting edema; capillary refill <4 seconds; preserved strenght (4+) Neurological: Normal speech; no parasthesias/anesthesia present Results Results: Laboratory Tests 11/12/16 2330: Troponin I 0.30 *H 11/12/16 1755: pH 7.30 *L, pCO2 47 H, pO2 75 L, HCO3 23, ABG O2 Sat (Measured) 94.0 L, Carboxyhemoglobin 0.2 L, O2 Concentration % 2L, O2 Delivery Method N/C, Phlebotomy Draw Site RIGHT RADIAL 11/12/16 1745: Troponin I 0.72 *H 11/12/16 1150: Anion Gap 11, Estimated GFR 36 L, BUN/Creatinine Ratio 16.4, Glucose 100 H, Calcium 7.7 L, Total Bilirubin 0.4, AST 56 H, ALT 58 H, Alkaline Phosphatase 89, Troponin I 0.87 *H, Total Protein 6.6, Albumin 3.5, Globulin 3.1, Albumin/ Globulin Ratio 1.1, CBC w Diff NO MAN DIFF REQ, RBC 3.71 L, MCV 87.4, MCH 28.5, RDW 16.3 H, MPV 7.3 L, Gran % 69.0, Lymphocytes % 19.7 L, Monocytes % 10.9 H , Eosinophils % 0.1, Basophils % 0.3, Absolute Granulocytes 3.7, Absolute Lymphocytes 1.1 L, Absolute Monocytes 0.6, Absolute Eosinophils 0, Absolute Basophils 0, PUBS MCHC 32.7 L 11/12/16 1146: Virus Culture Pending Assessment/Plan Assessment: Ms. Mcleod is a 86 y/o that came in to the [facility] due to flu-like symptoms. She has a PMHx of HTN, Hyperlipidemia, MS, GERD & CKD. Upon admission the patient had the following vital signs Temp (99.8), 86 BPM, 24 BrPM, 159/80 and an Oxygen Saturation of 97% on 4 L/min via NC. On laboratories it was sown that the patient has decreased Hgb and Hct (10.6 & 32.4, respectively), and increased BUN and Creatinine (23 & 1.4, respectively). Her cardiac enzyme assay showed increased Troponin (0.87) and CKMB (6.4). EKG findings were unremarkable (No ST elevations); Sinus Rythm and a QTc of 519. Given the previously mentioned signs, symptoms, clinical findings, imaging findings and Flu (+) test, it is most likely that all the symptoms for which the patient presented to the hospital are due to a Flu virus contraction. Although her Troponin level is high, there was no EKG findings asset protection representative of Myocardial Ischemia and the patient wasn't complaining of chest pain, which rules out NSTEMI and Unstable Angina. Possible Diagnosis: 1) Flu Virus 2) Superimposed Bacterial Pneumonia 3) Acute Bronchitis Plan: Problem List & Plan: 1) Positive Flu Test - Start the patient on Tamiflu 2) Chronic Kidney Disease - Continue observation of BUN and Creatinine values and monitor I&O's for changes in urinary output 3) Hypertension - Keep the patient on her home dose regimen of Metoprolol 25mg PO/daily 4) Hyperlipidemia - Keep the patient on her home dose regimen of Atorvastatin 20mg PO/daily 5) Heart Healthy Diet 6) DVT PPx - Start the patient on SQ Lovenox 1/day - Start the patient on ALP's since the patient is motion restricted.
--- NOTE | 2016-11-13 06:40 | PN- Housestaff ---
WESLEY JANG,CHEMO 11/13/16 0640: Subjective Follow-up For: - Flu - Demand ischemia Tele-Events Since Last Visit: SB 48-50s Subjective: Pt was seen and examined this morning. She appeared much better than yesterday. She was not in respiratory distress and was only on 1 L o2. SHe feels much better after the bipap overnight. She is in much better spirit today. Although her hands were cold to the touch, she was not complaining of fever/ chills. She said she does get cold sometimes. Pulses normal. She did not have any complains other than cough productive of white sputum. She was feeling hungry (has had poor po intake for the last couple days due to dry heaves). Review of Systems Constitutional: Denies: chills, fever. EENTM: Denies: visual changes. Cardiovascular: Denies: chest pain, palpitations. Respiratory: Reports: cough, short of breath, sputum production, wheezing. Gastrointestinal: Denies: abdominal pain, bloating, constipation, diarrhea. Objective Last 24 Hrs of Vital Signs/I&O Vital Signs Date Time Temp Pulse Resp B/P Pulse O2 O2 Flow FiO2 Ox Delivery Rate 11/13 1123 80 142/88 11/13 1039 95 Nasal 1.0L Cannula 11/13 0953 Nasal 1.0L Cannula 11/13 0829 97.6 58 20 100/60 97 Nasal 4.0L Cannula 11/13 0800 97 Nasal 1.0L Cannula 11/13 0539 56 99 11/13 0154 49 98 11/13 0027 98.0 56 20 118/60 96 BIPAP 11/13 0000 BIPAP 11/12 2321 56 96 11/12 1910 96 Nasal 4.0L Cannula 11/12 1910 97.1 62 20 134/80 20 Nasal 4.0L Cannula 11/12 1812 96.8 65 22 130/60 96 Nasal 2.0L Cannula 11/12 1652 96.3 67 22 148/67 98 Nasal 3.0L Cannula 11/12 1613 97.5 67 22 120/62 94 Nasal 2.0L Cannula Intake & Output 11/13 1600 11/13 0800 11/13 0000 Intake Total 100 120 Output Total Balance 100 120 Intake, Oral 100 120 Number 1 Bowel Movements Patient 63.503 kg Weight Physical Exam General Appearance: Alert, Oriented X3, Cooperative, No Acute Distress Skin: No Significant Lesion HEENT: Atraumatic Neck: Supple, No JVD, +2 Carotid Pulse wo Bruit Lymphatic: Axillary nl, Cervical nl Cardiovascular: Normal S1, Normal S2, No Murmurs, Gallops, Rubs, bradycardic Lungs: mild exp wheezing Abdomen: Normal Bowel Sounds, Soft, No Tenderness Neurological: Normal Speech, hoarse voice from MS Extremities: No Edema, Normal Pulses Assessment/Plan Assessment: 86-year-old female with PMH of HTN, HLD, MS, hep B, GERD, constipation, CKD, presented with "cold for 4-5 days" and worsening shortness of breath since this morning. Trop found to be elevated at 0.87 with T wave flattening in V2-V5. Problem list: # Troponinemia most likely demand ischemia vs renal dysfunction # Positive flu # Mild transaminitis # Chronic kidney disease #Troponinemia most likely demand ischemia vs renal dysfunction - Last echo december 2014: stage 1 diastolic dysfunction, LVEF > 65% - Trop 0.87 --> 0.72 --> 0.3 * Dr. Gongora consulted * Follow repeat echo * Start Aspirin # Positive flu * Tamiflu day 2 # Mild transaminitis - AST 56 ALT 58. Was 26 and 21 in May 2016 # Chronic kidney disease - BUN/Cr: 23H/1.4H. Was 23/1.3 in May 2016 # Hypertension * Continue metoprolol succinate 25 mg daily # Hyperlipidemia * Continue atorvastatin 20 daily # Hypothyroidism * Continue levothyroxine 25 mg daily # Home meds * Continue senna * Continue fish oil, folic acid, iron * Continue alendronate weekly (qmon) * Continue aspirin 81 mg daily * Continue omeprazole 40 mg daily Diet: heart healthy DVT ppx: mech and pharm DNR/DNI Problem List: 1. Influenza 2. NSTEMI (non-ST elevated myocardial infarction) Pain Ratin Pain Location: none Pain Goal: Remain pain free Pain Plan: none Tomorrow's Labs & Rationales: none DVT/Prophylaxis: mechanical, pharmacological MAREN JANG,FOX 11/13/16 1406: Attending Review Statement Attending Statement Attending MD Statement: examined this patient, discuss w/resident/PA/ENVIRONMENTAL STUDIES PROGRAM DIRECTOR, agreed w/resident/PA/ENVIRONMENTAL STUDIES PROGRAM DIRECTOR, reviewed EMR data (avail), discussed with nursing, discussed with case mgmt, amended to note Attending Assessment/Plan: Patient seen and examined. Resting comfortably and not in any acute distress. She is now alert and oriented x3. She reports feeling better. She denies chest pain, shortness of breath or palpitations She has had no events on telemetry overnight other than some episodes of snus bradycardia in the 40s-50. On exam she Is more alert today. She is not in respiratory distress. She has no jugular venous distention. She has fair entry bilaterally in the lungs with no added sounds. Abdomen is soft and nontender. She has trace peripheral edema. She required BiPAP therapy overnight, her PCO2 has improved this morning as well as her acidosis. She is only requiring 1 L of oxygen supplementation at present. Recommendations: -Continue Tamiflu. -Chronic enzymes are trending downwards. Follow-up echocardiogram. Continue conservative management. Continue aspirin therapy and beta harish therapy. -Titrate off oxygen as tolerated. Mobilize patient as tolerated.
[2016-11-13 07:52] LABS: ABSOLUTE BASOPHIL COUNT 0 /CUMM (0.0-0.2); ABSOLUTE EOSINOPHIL COUNT 0 /CUMM (0.0-0.7); ABSOLUTE GRANULOCYTE CT 4.5 /CUMM (1.4-6.5); ABSOLUTE LYMPH COUNT 0.6 /CUMM (1.2-3.4); ABSOLUTE MONOCYTE COUNT 0.3 /CUMM (0.10-0.60); BASOPHIL % 0.1 % (0.0-2.0); EOSINOPHIL % 0 % (0-5); HEMATOCRIT 33.6 % (37-47); MEAN CORPUSCULAR HGB 28.1 PG (27.0-31.0); MEAN CORPUSCULAR VOLUME 87.9 FL (81.0-99.0); MEAN PLATELET VOLUME 7.6 FL (7.4-10.4); PLATELET COUNT 237 /CUMM (130-400); RED BLOOD CELL CT 3.82 /CUMM (4.20-5.40); WHITE BLOOD CELL COUNT 5.4 /CUMM (4.8-10.8)
[2016-11-13 08:29] VITALS: BP 100/60
--- NOTE | 2016-11-13 11:05 | PN- Cardiology ---
Subjective Subjective: The patient is more alert today. She is not very conversant. She has no complaints at this time. She denies chest pains. She is on Tamiflu and is receiving respiratory treatments. Cardiac enzymes have been trending downwards. There have been no arrhythmias documented. Objective Vital Signs and I&Os Vital Signs Date Time Temp Pulse Resp B/P Pulse O2 O2 Flow FiO2 Ox Delivery Rate 11/13 1039 95 Nasal 1.0L Cannula 11/13 0953 Nasal 1.0L Cannula 11/13 0829 97.6 58 20 100/60 97 Nasal 4.0L Cannula 11/13 0800 97 Nasal 1.0L Cannula 11/13 0539 56 99 11/13 0154 49 98 11/13 0027 98.0 56 20 118/60 96 BIPAP 11/13 0000 BIPAP 11/12 2321 56 96 11/12 1910 96 Nasal 4.0L Cannula 11/12 1910 97.1 62 20 134/80 20 Nasal 4.0L Cannula 11/12 1812 96.8 65 22 130/60 96 Nasal 2.0L Cannula 11/12 1652 96.3 67 22 148/67 98 Nasal 3.0L Cannula 11/12 1613 97.5 67 22 120/62 94 Nasal 2.0L Cannula 11/12 1434 97.8 81 20 132/64 96 Nasal 4.0L Cannula 11/12 1259 88 18 184/77 94 Room Air 11/12 1249 98 Nasal 4.0L Cannula 11/12 1128 99.8 86 24 159/80 97 Nasal 4.0L Cannula Intake & Output 11/13 1600 11/13 0800 11/13 0000 11/12 1600 11/12 0800 11/12 0000 Intake Total 100 120 50 Output Total 200 Balance 100 120 -150 Intake, Oral 100 120 50 Number 1 Bowel Movements Output, Urine 200 Patient 140 lb 142 lb Weight Physical Exam: She is in no distress HEENT exam is normal Chest reveals a few rhonchi and some expiratory wheezing Heart reveals regular rhythm and no murmurs There is no edema Current Medications: Current Medications Sig/Tonya Start time Last Medication Dose Route Stop Time Status Admin Albuterol Sulfate 3 ML BID 11/13 1015 AC 11/13 INH 1039 Albuterol Sulfate 3 ML ONCE ONE 11/12 1230 DC 11/12 INH 11/12 1231 1249 Alendronate Sodium 70 MG QMON 11/18 0700 AC PO Alendronate Sodium 70 MG .[QW] 11/12 1845 DC PO Aspirin 325 MG ONCE ONE 11/12 1330 DC 11/12 PO 11/12 1331 1337 Aspirin Buffered 81 MG DAILY 11/13 1000 AC PO Atorvastatin Calcium 20 MG 1700 11/13 1700 AC PO Ferrous Sulfate 325 MG DAILY 11/13 1000 AC PO Fish Oil 1,050 MG DAILY 11/13 1000 AC PO Folic Acid 1 MG DAILY 11/13 1000 AC PO Heparin Sodium 5,000 UNIT Q8 11/13 0726 AC 11/13 (Porcine) SC 0826 Ipratropium [place] 2.5 ML ONCE ONE 11/12 1245 DC 11/12 INH 11/12 1246 1249 Levothyroxine Sodium 0.025 MG DAILY 11/13 1000 AC 11/13 PO 0823 Methylprednisolone 125 MG ONCE ONE 11/12 1245 DC 11/12 IV 11/12 1246 1245 Metoprolol Succinate 25 MG DAILY 11/13 1000 CAN PO Metoprolol Succinate 25 MG DAILY 11/13 1000 AC PO Multivitamins 1 TAB DAILY 11/13 1000 AC PO Omeprazole 40 MG DAILY AC 11/13 0700 AC 11/13 PO 0618 Oseltamivir Phosphate 30 MG BID 11/12 2200 AC 11/12 PO 11/16 2159 2046 Oseltamivir Phosphate 30 MG DAILY 11/12 1829 CAN PO 11/16 1828 Senna 187 MG AT BEDTIME PRN 11/12 1900 AC PO Results Last 48 Hrs of Labs/Mics: Laboratory Tests 11/13/16 0640: Anion Gap 14, Estimated GFR 36 L, BUN/Creatinine Ratio 17.9, Triglycerides 154 H, Cholesterol 118, LDL Cholesterol, Calc 49 L, HDL Cholesterol 39 L, Cholesterol/HDL Ratio 3, CBC w Diff NO MAN DIFF REQ, RBC 3.82 L, MCV 87.9, MCH 28.1, RDW 16.0 H, MPV 7.6, Gran % 83.0 H, Lymphocytes % 10.6 L, Monocytes % 6.3, Eosinophils % 0, Basophils % 0.1, Absolute Granulocytes 4.5, Absolute Lymphocytes 0.6 L, Absolute Monocytes 0.3, Absolute Eosinophils 0, Absolute Basophils 0, PUBS MCHC 32.0 L 11/13/16 0635: pH 7.37, pCO2 42, pO2 70 L, HCO3 25, ABG O2 Sat (Measured) 96.0, P-50 (Temp Corrected) Y, Carboxyhemoglobin 0.3 L, O2 Concentration % 2 LPM, Temperature 93.0 L, O2 Delivery Method N/C, Phlebotomy Draw Site RIGHT RADIAL 11/12/16 2330: Troponin I 0.30 *H 11/12/16 1755: pH 7.30 *L, pCO2 47 H, pO2 75 L, HCO3 23, ABG O2 Sat (Measured) 94.0 L, Carboxyhemoglobin 0.2 L, O2 Concentration % 2L, O2 Delivery Method N/C, Phlebotomy Draw Site RIGHT RADIAL 11/12/16 1745: Troponin I 0.72 *H 11/12/16 1150: Anion Gap 11, Estimated GFR 36 L, BUN/Creatinine Ratio 16.4, Glucose 100 H, Calcium 7.7 L, Total Bilirubin 0.4, AST 56 H, ALT 58 H, Alkaline Phosphatase 89, Troponin I 0.87 *H, Total Protein 6.6, Albumin 3.5, Globulin 3.1, Albumin/ Globulin Ratio 1.1, CBC w Diff NO MAN DIFF REQ, RBC 3.71 L, MCV 87.4, MCH 28.5, RDW 16.3 H, MPV 7.3 L, Gran % 69.0, Lymphocytes % 19.7 L, Monocytes % 10.9 H , Eosinophils % 0.1, Basophils % 0.3, Absolute Granulocytes 3.7, Absolute Lymphocytes 1.1 L, Absolute Monocytes 0.6, Absolute Eosinophils 0, Absolute Basophils 0, PUBS MCHC 32.7 L 11/12/16 1146: Virus Culture Pending Assessment/Plan Assessment/Plan The patient is stable from a cardiac standpoint. Her cardiac enzymes are trending downwards. There have been no arrhythmias. There is no evidence of congestive heart failure etc. Her EKG from last evening did show some anterior T-wave changes which are new from previous. Her echocardiogram is still pending. I recommend continued monitoring at this point. I would keep her on aspirin and metoprolol. I will review the echocardiogram when it has been done and have further recommendations at that time. There are no plans for cardiac catheterization or aggressive intervention. Continue telemetry? Yes
[2016-11-13 16:16] VITALS: BP 110/62
[2016-11-13 22:00] VITALS: BP 124/60
--- NOTE | 2016-11-14 06:41 | PN- Housestaff ---
WESLEY JANG,[facility] 11/14/16 0641: Subjective Follow-up For: flu demand ischemia Tele-Events Since Last Visit: SR 66-86. first degree heart block. PVCs. Subjective: Pt seen and examined this morning. She appeared more tired this morning compared to yesterday, most likely because she was just woke up. She perked up when seen an hour later. She is reporting feeling cold and tired. Still having some cough. Pt still on oxygen although she denies shortness of breath at this point. I spoke to her daughter over the phone, she is likely to be discharged tomorrow if continues to do well. Case manangement also aware of the plan. Will make sure her home health services will be resumed when she gets home. pt also needs ambulance to go home. Review of Systems Constitutional: Denies: chills, fever. EENTM: Denies: visual changes. Cardiovascular: Denies: chest pain, palpitations. Respiratory: Reports: cough, sputum production. Denies: short of breath. Gastrointestinal: Denies: abdominal pain, bloating, constipation, diarrhea. Objective Last 24 Hrs of Vital Signs/I&O Vital Signs Date Time Temp Pulse Resp B/P Pulse O2 O2 Flow FiO2 Ox Delivery Rate 11/14 1025 92 Room Air Room Air 11/14 0925 66 112/60 11/14 0800 97 Nasal 1.0L Cannula 11/14 0800 97.0 66 20 112/60 97 Nasal 1.0L Cannula 11/14 0000 Nasal 2.0L Cannula 11/13 2200 97.7 76 20 124/60 96 Nasal 1.0L Cannula 11/13 1925 97 Nasal 1.0L Cannula 11/13 1616 97.8 64 18 110/62 96 Intake & Output 11/14 1600 11/14 0800 11/14 0000 Intake Total 100 100 Output Total Balance 100 100 Intake, Oral 100 100 Physical Exam General Appearance: Alert, Oriented X3, Cooperative, No Acute Distress Skin: No Significant Lesion Cardiovascular: Regular Rate, Normal S1, Normal S2 Lungs: ?mild wheeze... pt had coughing fit when asked to take deep breaths. Abdomen: Normal Bowel Sounds, Soft, No Tenderness Current Medications: Current Medications Sig/Tonya Start time Last Medication Dose Route Stop Time Status Admin Albuterol Sulfate 3 ML BID 11/13 1015 AC 11/14 INH 1022 Alendronate Sodium 70 MG QMON 11/18 0700 AC PO Aspirin Buffered 81 MG DAILY 11/13 1000 AC 11/14 PO 0925 Atorvastatin Calcium 20 MG 1700 11/13 1700 AC 11/13 PO 1636 Benzocaine/Menthol 1 WALLY Q2P PRN 11/14 0830 AC PO Ferrous Sulfate 325 MG DAILY 11/13 1000 AC 11/14 PO 0925 Fish Oil 1,050 MG DAILY 11/13 1000 AC 11/14 PO 0925 Folic Acid 1 MG DAILY 11/13 1000 AC 11/14 PO 0925 Guaifenesin/ 10 ML Q6P PRN 11/14 0830 AC Dextromethorphan PO Heparin Sodium 5,000 UNIT Q8 11/13 0726 AC 11/14 (Porcine) SC 0600 Levothyroxine Sodium 0.025 MG DAILY 11/13 1000 AC 11/14 PO 0925 Metoprolol Succinate 25 MG DAILY 11/13 1000 AC 11/14 PO 0925 Multivitamins 1 TAB DAILY 11/13 1000 AC 11/14 PO 0925 Omeprazole 40 MG DAILY AC 11/13 0700 AC 11/14 PO 0620 Oseltamivir Phosphate 30 MG BID 11/12 2200 AC 11/14 PO 11/16 2159 0925 Senna 187 MG AT BEDTIME PRN 11/12 1900 AC PO Last 24 Hrs of Lab/Ron Results Last 24 Hrs of Labs/Mics: No labs Assessment/Plan Assessment: 86-year-old female with PMH of HTN, HLD, MS, hep B, GERD, constipation, CKD, presented with "cold for 4-5 days" and worsening shortness of breath since this morning. Trop found to be elevated at 0.87 with T wave flattening in V2-V5. Problem list: # Troponinemia most likely demand ischemia vs renal dysfunction # Positive flu # Mild transaminitis # Chronic kidney disease # Positive flu * Tamiflu day 3/5 * Robitussin and lozenges for cough * OOB to chair * Wean o2 as tolerated #Troponinemia most likely demand ischemia vs renal dysfunction - Last echo december 2014: stage 1 diastolic dysfunction, LVEF > 65% - Trop 0.87 --> 0.72 --> 0.3 - Oct 2016 Echo: moderate left concentric hypertrophy, normal LVEF > 75%. Stage 1 diastolic dysfunction, RV systolic pressure 40 mm hg * Dr. Gongora consulted * Continue Aspirin * DC tele monitoring. Keep pt on tele, anticipated dc tomorrow. # Mild transaminitis - AST 56 ALT 58. Was 26 and 21 in May 2016 # Chronic kidney disease - BUN/Cr: 23H/1.4H. Was 23/1.3 in May 2016 # Hypertension * Continue metoprolol succinate 25 mg daily # Hyperlipidemia * Continue atorvastatin 20 daily # Hypothyroidism * Continue levothyroxine 25 mg daily # Home meds * Continue senna * Continue fish oil, folic acid, iron * Continue alendronate weekly (qmon) * Continue aspirin 81 mg daily * Continue omeprazole 40 mg daily Diet: heart healthy DVT ppx: mech and pharm DNR/DNI Problem List: 1. Influenza Pain Ratin Pain Location: none Pain Goal: Remain pain free Pain Plan: none Tomorrow's Labs & Rationales: none DVT/Prophylaxis: mechanical, pharmacological MAREN JANG,[facility] 11/14/16 1110: Attending MD Review Statement Attending Statement Attending MD Statement: examined this patient, discuss w/resident/PA/GARDENER FLORIST, agreed w/resident/PA/GARDENER FLORIST, reviewed EMR data (avail), discussed with nursing, discussed with case mgmt, amended to note Attending Assessment/Plan: Patient is a well. She is alert and oriented 3. She denies chest or shortness of breath. She reports mild productive cough. She is afebrile and hemodynamically stable. No events overnight on telemetry. On examination lungs are clear bilaterally. Recommendations: -Anticipate discharge home tomorrow. Patient reports she has appropriate home care services in place. -Patient to continue Tamiflu therapy upon discharge. -Follow-up echocardiogram.
[2016-11-14 08:00] VITALS: BP 112/60
--- NOTE | 2016-11-14 09:21 | ECHOCARDIOGRAM REPORT ---
LUIS TRIMBLE Age: 86 : 1930 Gender: F Exam Date: 11/13/2016 18:44 Exam Location: [address] Ht (in): 60 Wt (lb): 190 BSA: 1.96 BP: 142 / 88 Ordering Physician: JEAN CARLOS GONGORA MD Referring Physician: JEAN CARLOS GONGORA MD Technologist: Josefina Baeza ESAU Room Number: 176 Indications: MYOCARDIAL ISCHEMIA/VA Rhythm: Sinus Technical Quality: Fair FINDINGS Left Ventricle Normal size left ventricle. Moderate concentric left ventricular hypertrophy. Normal left ventricular ejection fraction visually estimated at >65 %. No obvious regional wall motion abnormalities. Abnormal relaxation filling pattern of the left ventricle for age (stage 1 diastolic dysfunction). Right Ventricle The right ventricle is normal in size and function. Right Atrium The right atrium is normal in size. Left Atrium The left atrium is normal in size. The interatrial septum is intact. Mitral Valve Mild thickening/calcification of the mitral valve leaflets. Mild mitral annular calcification. Trace mitral regurgitation. Aortic Valve Focal thickening of the aortic valve cusps. No aortic stenosis. Mild aortic regurgitation. Tricuspid Valve The tricuspid valve is normal in structure and function. There is trace to mild tricuspid regurgitation. Right ventricular systolic pressure estimated to be elevated at 40 mmHg. Pulmonic Valve Structurally normal pulmonic valve. There is trace pulmonic regurgitation. Pericardium Normal pericardium without effusion. No pleural effusion. Great Vessels Normal aortic root dimension. The aortic arch and great vessels are well seen and are normal. CONCLUSIONS Moderate concentric left ventricular hypertrophy. Normal left ventricular ejection fraction visually estimated at >65 No obvious regional wall motion abnormalities. Abnormal relaxation filling pattern of the left ventricle for age (stage 1 diastolic dysfunction). The left atrium is normal in size. Mild thickening/calcification of the mitral valve leaflets. Mild mitral annular calcification. Trace mitral regurgitation. Focal thickening of the aortic valve cusps. No aortic stenosis. Mild aortic regurgitation. Right ventricular systolic pressure estimated to be elevated at 40 mmHg. Jean Carlos Gongora M.D. (Electronically Signed) Final Date: 14 November 2016 09:20 MEASUREMENTS (Male / Female) Normal Values 2D ECHO LV Diastolic Diameter PLAX 4.7 cm 4.2 - 5.9 / 3.9 - 5.3 cm LV Systolic Diameter PLAX 2.5 cm 2.1 - 4.0 cm LV Fractional Shortening PLAX 46.8 % 25 - 46 % LV Ejection Fraction 2D Teich 78.2 % IVS Diastolic Thickness 1.4 cm LVPW Diastolic Thickness 1.4 cm LV Relative Wall Thickness 0.6 RV Internal Dim ED PLAX 3.6 cm 1.9 - 3.8 cm LVOT Diameter 2.2 cm Aortic Root Diameter 3.4 cm LA Systolic Diameter LX 4.3 cm 3.0 - 4.0 / 2.7 - 3.8 cm LA Volume 24.0 cm 18 - 58 / 22 - 52 cm Ascending Aorta Diameter 3.3 cm DOPPLER AV Peak Velocity 172.0 cm/s AV Peak Gradient 11.8 mmHg AV Mean Velocity 116.0 cm/s AV Mean Gradient 6.0 mmHg AV Velocity Time Integral 36.3 cm LVOT Peak Velocity 156.0 cm/s LVOT Peak Gradient 9.7 mmHg LVOT Mean Velocity 109.0 cm/s LVOT Mean Gradient 6.0 mmHg LVOT Velocity Time Integral 32.0 cm LVOT Stroke Volume 121.6 cm AV Area Cont Eq vti 3.4 cm AV Area Cont Eq pk 3.4 cm MV Peak Velocity 111.0 cm/s MV Peak Gradient 4.9 mmHg MV Mean Velocity 66.7 cm/s MV Mean Gradient 2.0 mmHg Mitral E Point Velocity 92.8 cm/s Mitral A Point Velocity 114.0 cm/s Mitral E to A Ratio 0.8 MV PHT Velocity 108.0 cm/s MV Deceleration [place] 532.0 cm/s MV Pressure Half Time 60.9 ms MV Area PHT 3.6 cm MV Deceleration Time 317.0 ms TR Peak Velocity 290.0 cm/s TR Peak Gradient 33.6 mmHg Right Atrial Pressure 5.0 mmHg Pulmonary Artery Systolic Pressu 38.6 mmHg Right Ventricular Systolic Press 38.6 mmHg PV Peak Velocity 145.0 cm/s PV Peak Gradient 8.4 mmHg PV Mean Velocity 101.0 cm/s PV Mean Gradient 5.0 mmHg PV Velocity Time Integral 30.5 cm LV E' Lateral Velocity 8.1 cm/s Mitral E to LV E' Lateral Ratio 11.5 LV E' Septal Velocity 10.6 cm/s Mitral E to LV E' Septal Ratio 8.8
--- NOTE | 2016-11-14 10:01 | PN- Cardiology ---
Subjective Subjective: The patient is more alert today. She has no specific complaints. She is in less respiratory distress. Objective Vital Signs and I&Os Vital Signs Date Time Temp Pulse Resp B/P Pulse O2 O2 Flow FiO2 Ox Delivery Rate 11/14 09 66 112/60 11/14 0800 97 Nasal 1.0L Cannula 11/14 08 97.0 66 20 112/60 97 Nasal 1.0L Cannula 11/14 0000 Nasal 2.0L Cannula 11/13 2200 97.7 76 20 124/60 96 Nasal 1.0L Cannula 11/13 1925 97 Nasal 1.0L Cannula 11/13 1616 97.8 64 18 110/62 96 11/13 1123 80 142/88 11/13 1039 95 Nasal 1.0L Cannula Intake & Output 11/14 1600 11/14 0800 11/14 0000 11/13 1600 11/13 0800 11/13 0000 Intake Total 644 602 0512 100 120 Output Total Balance 395 797 0906 100 120 Intake, Oral 937 798 4820 100 120 Number 1 Bowel Movements Patient 140 lb Weight Physical Exam: Chest reveals mild wheezing Heart reveals regular rhythm with no murmurs Extremities are unchanged Current Medications: Current Medications Sig/Tonya Start time Last Medication Dose Route Stop Time Status Admin Albuterol Sulfate 3 ML BID 11/13 1015 AC 11/13 INH 1925 Alendronate Sodium 70 MG QMON 11/18 0700 AC PO Aspirin Buffered 81 MG DAILY 11/13 1000 AC 11/14 PO 0925 Atorvastatin Calcium 20 MG 1700 11/13 1700 AC 11/13 PO 1636 Benzocaine/Menthol 1 WALLY Q2P PRN 11/14 0830 AC PO Ferrous Sulfate 325 MG DAILY 11/13 1000 AC 11/14 PO 0925 Fish Oil 1,050 MG DAILY 11/13 1000 AC 11/14 PO 0925 Folic Acid 1 MG DAILY 11/13 1000 AC 11/14 PO 0925 Guaifenesin/ 10 ML Q6P PRN 11/14 0830 AC Dextromethorphan PO Heparin Sodium 5,000 UNIT Q8 11/13 0726 AC 11/14 (Porcine) SC 0600 Levothyroxine Sodium 0.025 MG DAILY 11/13 1000 AC 11/14 PO 0925 Metoprolol Succinate 25 MG DAILY 11/13 1000 AC 11/14 PO 0925 Multivitamins 1 TAB DAILY 11/13 1000 AC 11/14 PO 0925 Omeprazole 40 MG DAILY AC 11/13 0700 AC 11/14 PO 0620 Oseltamivir Phosphate 30 MG BID 11/120 AC 11/14 PO 11/16 2158 0925 Senna 187 MG AT BEDTIME PRN 11/12 1900 AC PO Results Last 48 Hrs of Labs/Mics: Laboratory Tests 11/13/16 0640: Anion Gap 14, Estimated GFR 36 L, BUN/Creatinine Ratio 17.9, Triglycerides 154 H, Cholesterol 118, LDL Cholesterol, Calc 49 L, HDL Cholesterol 39 L, Cholesterol/HDL Ratio 3, CBC w Diff NO MAN DIFF REQ, RBC 3.82 L, MCV 87.9, MCH 28.1, RDW 16.0 H, MPV 7.6, Gran % 83.0 H, Lymphocytes % 10.6 L, Monocytes % 6.3, Eosinophils % 0, Basophils % 0.1, Absolute Granulocytes 4.5, Absolute Lymphocytes 0.6 L, Absolute Monocytes 0.3, Absolute Eosinophils 0, Absolute Basophils 0, PUBS MCHC 32.0 L 11/13/16 0635: pH 7.37, pCO2 42, pO2 70 L, HCO3 25, ABG O2 Sat (Measured) 96.0, P-50 (Temp Corrected) Y, Carboxyhemoglobin 0.3 L, O2 Concentration % 2 LPM, Temperature 93.0 L, O2 Delivery Method N/C, Phlebotomy Draw Site RIGHT RADIAL 11/12/16 2330: Troponin I 0.30 *H 11/12/16 1755: pH 7.30 *L, pCO2 47 H, pO2 75 L, HCO3 23, ABG O2 Sat (Measured) 94.0 L, Carboxyhemoglobin 0.2 L, O2 Concentration % 2L, O2 Delivery Method N/C, Phlebotomy Draw Site RIGHT RADIAL 11/12/16 1745: Troponin I 0.72 *H 11/12/16 1150: Anion Gap 11, Estimated GFR 36 L, BUN/Creatinine Ratio 16.4, Glucose 100 H, Calcium 7.7 L, Total Bilirubin 0.4, AST 56 H, ALT 58 H, Alkaline Phosphatase 89, Troponin I 0.87 *H, Total Protein 6.6, Albumin 3.5, Globulin 3.1, Albumin/ Globulin Ratio 1.1, CBC w Diff NO MAN DIFF REQ, RBC 3.71 L, MCV 87.4, MCH 28.5, RDW 16.3 H, MPV 7.3 L, Gran % 69.0, Lymphocytes % 19.7 L, Monocytes % 10.9 H , Eosinophils % 0.1, Basophils % 0.3, Absolute Granulocytes 3.7, Absolute Lymphocytes 1.1 L, Absolute Monocytes 0.6, Absolute Eosinophils 0, Absolute Basophils 0, PUBS MCHC 32.7 L 11/12/16 1146: Virus Culture Pending Recent Imaging Studies: CONCLUSIONS Moderate concentric left ventricular hypertrophy. Normal left ventricular ejection fraction visually estimated at >65 No obvious regional wall motion abnormalities. Abnormal relaxation filling pattern of the left ventricle for age (stage 1 diastolic dysfunction). The left atrium is normal in size. Mild thickening/calcification of the mitral valve leaflets. Mild mitral annular calcification. Trace mitral regurgitation. Focal thickening of the aortic valve cusps. No aortic stenosis. Mild aortic regurgitation. Right ventricular systolic pressure estimated to be elevated at 40 mmHg. Panfilo Gongora M.D. (Electronically Signed) Final Date: 14 November 2016 09:20 Assessment/Plan Assessment/Plan The patient is stable from a cardiac standpoint. Her cardiac enzymes are trending downwards. There have been no arrhythmias. There is no evidence of congestive heart failure etc. The echocardiogram showed LVH with normal systolic function, some mild valvular thickening and mild pulmonary hypertension. Telemetry can be discontinued at this time as there have been no arrhythmias and we are treating her very conservatively. She can be discharged when stable from a respiratory standpoint. There are no plans for cardiac catheterization or aggressive intervention. Continue telemetry? No
--- NOTE | 2016-11-14 15:12 | PN- Student ---
Subjective Subjective: Source: Patient Follow up for: Influenza Virus Infection I visited Ms. Mcleod this morning and she was on her bed and looking more illed than yesterday. She was more short of breath while talking to us and expressed that she wasn't feeling at her best condition. She denied any overnight complications and mentioned that she wasn't feeling febrile. However, upon visiting her an hours after the initial visit she was more lively and didn' t portrayed the same presentation that I got in the earlier morning. The patient doesn't seem to be deteriorating and she also recognizes that as well. Review of Systems: General: Acute respiratory distress. The patient has a mild fever and is alert and oriented X3, but drowsy HEENT: NC/AT; patient denies any visual changes or double vision Cardiovascular: Denies chest pain and palpitations Respiratory: Mildly short of breath GI: Denies abdominal pain, constipation or nausea Genitourinary: Denies dysuria or urine color changes Objective Objective: Current Medications Sig/Tonya Start time Last Medication Dose Route Stop Time Status Admin Albuterol Sulfate 3 ML BID 11/13 1015 AC 11/14 INH 1022 Alendronate Sodium 70 MG QMON 11/18 0700 AC PO Aspirin Buffered 81 MG DAILY 11/13 1000 AC 11/14 PO 0925 Atorvastatin Calcium 20 MG 1700 11/13 1700 AC 11/13 PO 1636 Benzocaine/Menthol 1 WALLY Q2P PRN 11/14 0830 AC PO Ferrous Sulfate 325 MG DAILY 11/13 1000 AC 11/14 PO 0925 Fish Oil 1,050 MG DAILY 11/13 1000 AC 11/14 PO 0925 Folic Acid 1 MG DAILY 11/13 1000 AC 11/14 PO 0925 Guaifenesin/ 10 ML Q6P PRN 11/14 0830 AC Dextromethorphan PO Heparin Sodium 5,000 UNIT Q8 11/13 0726 AC 11/14 (Porcine) SC 0600 Levothyroxine Sodium 0.025 MG DAILY 11/13 1000 AC 11/14 PO 0925 Metoprolol Succinate 25 MG DAILY 11/13 1000 AC 11/14 PO 0925 Multivitamins 1 TAB DAILY 11/13 1000 AC 11/14 PO 0925 Omeprazole 40 MG DAILY AC 11/13 0700 AC 11/14 PO 0620 Oseltamivir Phosphate 30 MG BID 11/12 2200 AC 11/14 PO 11/169 09 Senna 187 MG AT BEDTIME PRN 11/12 1900 AC PO Vital Signs Date Time Temp Pulse Resp B/P Pulse O2 O2 Flow FiO2 Ox Delivery Rate 11/14 1025 92 Room Air Room Air 11/14 0925 66 112/60 11/14 0800 97 Nasal 1.0L Cannula 11/14 0800 97.0 66 20 112/60 97 Nasal 1.0L Cannula 11/14 0000 Nasal 2.0L Cannula 11/13 2200 97.7 76 20 124/60 96 Nasal 1.0L Cannula 11/13 1925 97 Nasal 1.0L Cannula 11/13 1616 97.8 64 18 110/62 96 Intake & Output 11/14 1600 11/14 0800 11/14 0000 Intake Total 480 100 100 Output Total Balance 480 100 100 Intake, Oral 480 100 100 Number 1 Bowel Movements Physical Examination: General: Patient is in acute respiratory distress, drowsy, alert and oriented X3 HEENT: EOMI, PERRL, NC/AT Neck: Supple Lungs: Diffuse wheezes bilaterally with mild bibasillar crackles CV: Normal S1, S2 were heard; Normal rate; No murmurs or gallops were appreciated GI: Normal bowel sounds; no masses were felt upon light/deep palpation Lower Extremities: no pitting edema; capillary refill <4 seconds; preserved strenght (4+) Neurological: Normal speech; no parasthesias/anesthesia present Results Results: Laboratory Tests 11/13/16 0640: Anion Gap 14, Estimated GFR 36 L, BUN/Creatinine Ratio 17.9, Triglycerides 154 H, Cholesterol 118, LDL Cholesterol, Calc 49 L, HDL Cholesterol 39 L, Cholesterol/HDL Ratio 3, CBC w Diff NO MAN DIFF REQ, RBC 3.82 L, MCV 87.9, MCH 28.1, RDW 16.0 H, MPV 7.6, Gran % 83.0 H, Lymphocytes % 10.6 L, Monocytes % 6.3, Eosinophils % 0, Basophils % 0.1, Absolute Granulocytes 4.5, Absolute Lymphocytes 0.6 L, Absolute Monocytes 0.3, Absolute Eosinophils 0, Absolute Basophils 0, PUBS MCHC 32.0 L 11/13/16 0635: pH 7.37, pCO2 42, pO2 70 L, HCO3 25, ABG O2 Sat (Measured) 96.0, P-50 (Temp Corrected) Y, Carboxyhemoglobin 0.3 L, O2 Concentration % 2 LPM, Temperature 93.0 L, O2 Delivery Method N/C, Phlebotomy Draw Site RIGHT RADIAL 11/12/16 2330: Troponin I 0.30 *H 11/12/16 1755: pH 7.30 *L, pCO2 47 H, pO2 75 L, HCO3 23, ABG O2 Sat (Measured) 94.0 L, Carboxyhemoglobin 0.2 L, O2 Concentration % 2L, O2 Delivery Method N/C, Phlebotomy Draw Site RIGHT RADIAL 11/12/16 1745: Troponin I 0.72 *H 11/12/16 1150: Anion Gap 11, Estimated GFR 36 L, BUN/Creatinine Ratio 16.4, Glucose 100 H, Calcium 7.7 L, Total Bilirubin 0.4, AST 56 H, ALT 58 H, Alkaline Phosphatase 89, Troponin I 0.87 *H, Total Protein 6.6, Albumin 3.5, Globulin 3.1, Albumin/ Globulin Ratio 1.1, CBC w Diff NO MAN DIFF REQ, RBC 3.71 L, MCV 87.4, MCH 28.5, RDW 16.3 H, MPV 7.3 L, Gran % 69.0, Lymphocytes % 19.7 L, Monocytes % 10.9 H , Eosinophils % 0.1, Basophils % 0.3, Absolute Granulocytes 3.7, Absolute Lymphocytes 1.1 L, Absolute Monocytes 0.6, Absolute Eosinophils 0, Absolute Basophils 0, PUBS MCHC 32.7 L 11/12/16 1146: Virus Culture Pending Assessment/Plan Assessment: Ms. Mcleod is a 86 y/o that came in to the [facility] due to flu-like symptoms. She has a PMHx of HTN, Hyperlipidemia, MS, GERD & CKD. Upon admission the patient had the following vital signs Temp (99.8), 86 BPM, 24 BrPM, 159/80 and an Oxygen Saturation of 97% on 4 L/min via NC. On laboratories it was sown that the patient has decreased Hgb and Hct (10.6 & 32.4, respectively), and increased BUN and Creatinine (23 & 1.4, respectively). Her cardiac enzyme assay showed increased Troponin (0.87) and CKMB (6.4). EKG findings were unremarkable (No ST elevations); Sinus Rythm and a QTc of 519. Given the previously mentioned signs, symptoms, clinical findings, imaging findings and Flu (+) test, it is most likely that all the symptoms for which the patient presented to the hospital are due to a Flu virus contraction. Although her Troponin level is high, there was no EKG findings insurance representative of Myocardial Ischemia and the patient wasn't complaining of chest pain, which rules out NSTEMI and Unstable Angina. Possible Diagnosis: 1) Flu Virus 2) Superimposed Bacterial Pneumonia 3) Acute Bronchitis Plan: Problem List & Plan: 1) Positive Flu Test - Continue Tamiflu for 2 more days 2) Chronic Kidney Disease - Continue observation of BUN and Creatinine values and monitor I&O's for changes in urinary output 3) Hypertension - Keep the patient on her home dose regimen of Metoprolol 25mg PO/daily 4) Hyperlipidemia - Keep the patient on her home dose regimen of Atorvastatin 20mg PO/daily 5) Heart Healthy Diet 6) DVT PPx - Cotinue SQ Lovenox 1/day - Continue on ALP's since the patient is motion restricted.
[2016-11-14 16:33] VITALS: BP 140/72
[2016-11-14] MEDS ORDERED: TAMIFLU30 M1 PO (19:21)
[2016-11-14] MEDS ORDERED: ROBAFEN-DM SYR118 ML PO (19:22)
--- NOTE | 2016-11-14 19:24 | Patient Discharge Instructions ---
Discharge Instructions General Discharge Information You were seen/treated for: - Flu - Demand ischemia Watch for these problems: - Increased shortness of breath - Increased lethargy - Blood in stool Special Instructions: - Please follow up with PCP in 1 week. - Please discuss with PCP regarding workup for positive blood in stool ( colonoscopy?) Diet Continue normal diet: Yes Activity Full Activity/No Limits: Yes Acute Coronary Syndrome Inclusion Criteria At DC or during hospital stay patient has or had the following: ACS DIAGNOSIS No Discharge Core Measures Meds if any: Prescribed or Continued at Discharge Meds if any: NOT Prescribed or Continued at Discharge Congestive Heart Failure Inclusion Criteria At DC or during hospital stay patient has or had the following: CHF DIAGNOSIS No Discharge Core Measures Meds if any: Prescribed or Continued at Discharge Meds if any: NOT Prescribed or Continued at Discharge Cerebrovascular accident Inclusion Criteria At DC or during hospital stay patient has or had the following: CVA/TIA Diagnosis No Discharge Core Measures Meds if any: Prescribed or Continued at Discharge Meds if any: NOT Prescribed or Continued at Discharge Venous thromboembolism Inclusion Criteria VTE Diagnosis No VTE Type NONE VTE Confirmed by (Test) NONE Discharge Core Measures - Per Current guidelines, there needs to be overlap - treatment for the first 5 days of Warfarin therapy. - If discharged on Warfarin prior to 5 days of - overlap therapy, the patient will need to be - assessed for post discharge needs including - *Post discharge parental anticoagulation - *Warfarin and/or parental anticoagulation education - *Follow up date to check INR post discharge At least 5 days overlap therapy as Inpatient No Meds if any: Prescribed or Continued at Discharge Note: Overlap Therapy is Warfarin and Anticoagulant Meds if any: NOT Prescribed or Continued at Discharge
[2016-11-14 23:37] VITALS: BP 140/72
--- NOTE | 2016-11-15 06:53 | PN- Housestaff ---
WESLEY JANG,[facility] 11/15/16 0653: Subjective Follow-up For: flu demand ischemia Subjective: pt reports feeling well. reports improvement in cough and breathing after breathing tx and robitussin. plan for discharge today, after we wean o2 off. she feels well to go home. home health set in place to continue at discharge. wants alps off as it was hurting her. she was wearing it all night. refused heparin for dvt ppx. she had insp and exp wheezing, called resp to give her a breathing tx. Review of Systems Constitutional: Denies: chills, fever. Cardiovascular: Denies: chest pain, palpitations. Respiratory: Reports: cough, sputum production. Denies: short of breath. Gastrointestinal: Denies: abdominal pain, bloating, constipation, diarrhea. Objective Last 24 Hrs of Vital Signs/I&O Vital Signs Date Time Temp Pulse Resp B/P Pulse O2 O2 Flow FiO2 Ox Delivery Rate 11/15 0802 97.9 86 18 160/82 93 Room Air 11/15 0000 Nasal 1.0L Cannula 11/14 2337 98.1 70 20 140/72 95 Nasal Cannula 11/14 1820 89 Room Air 11/14 1633 98.2 74 20 140/72 93 Room Air 11/14 1025 92 Room Air Room Air 11/14 0925 66 112/60 Intake & Output 11/15 1600 11/15 0800 11/15 0000 Intake Total 120 360 Output Total Balance 120 360 Intake, Oral 120 360 Physical Exam General Appearance: Alert, Oriented X3, Cooperative, No Acute Distress Skin: No Significant Lesion HEENT: Atraumatic Cardiovascular: Regular Rate, Normal S1, Normal S2, No Murmurs, Gallops, Rubs Lungs: insp and exp wheezes Abdomen: Normal Bowel Sounds, Soft, No Tenderness Neurological: hoarse voice, baseline Current Medications: Current Medications Sig/Tonya Start time Last Medication Dose Route Stop Time Status Admin Albuterol Sulfate 3 ML BID 11/13 1015 AC 11/14 INH 1022 Alendronate Sodium 70 MG QMON 11/18 0700 AC PO Aspirin Buffered 81 MG DAILY 11/13 1000 AC 11/14 PO 0925 Atorvastatin Calcium 20 MG 1700 11/13 1700 AC 11/14 PO 1633 Benzocaine/Menthol 1 WALLY Q2P PRN 11/14 0830 AC PO Ferrous Sulfate 325 MG DAILY 11/13 1000 AC 11/14 PO 0925 Fish Oil 1,050 MG DAILY 11/13 1000 AC 11/14 PO 0925 Folic Acid 1 MG DAILY 11/13 1000 AC 11/14 PO 0925 Guaifenesin/ 10 ML Q6P PRN 11/14 0830 AC Dextromethorphan PO Heparin Sodium 5,000 UNIT Q8 11/13 0726 AC 11/14 (Porcine) SC 0600 Levothyroxine Sodium 0.025 MG DAILY 11/13 1000 AC 11/14 PO 0925 Metoprolol Succinate 25 MG DAILY 11/13 1000 AC 11/14 PO 0925 Multivitamins 1 TAB DAILY 11/13 1000 AC 11/14 PO 0925 Omeprazole 40 MG DAILY AC 11/13 0700 AC 11/15 PO 0615 Oseltamivir Phosphate 30 MG BID 11/120 AC 11/14 PO 11/16 2159 2140 Senna 187 MG AT BEDTIME PRN 11/12 1900 AC PO Assessment/Plan Assessment: 86-year-old female with PMH of HTN, HLD, MS, hep B, GERD, constipation, CKD, presented with "cold for 4-5 days" and worsening shortness of breath since this morning. Trop found to be elevated at 0.87 with T wave flattening in V2-V5. Problem list: # Troponinemia most likely demand ischemia vs renal dysfunction # Positive flu # Guaiac positive stool # Mild transaminitis # Chronic kidney disease # Positive flu * Tamiflu day 4/ * Robitussin and lozenges for cough * OOB to chair * Wean o2 as tolerated #Troponinemia most likely demand ischemia vs renal dysfunction - Last echo december 2014: stage 1 diastolic dysfunction, LVEF > 65% - Trop 0.87 --> 0.72 --> 0.3 - Oct 2016 Echo: moderate left concentric hypertrophy, normal LVEF > 75%. Stage 1 diastolic dysfunction, RV systolic pressure 40 mm hg * Dr. Gongora consulted * Continue Aspirin * DC tele monitoring. # Guaiac positive stool * F/U OP with PCP for further workup, h/h stable # Mild transaminitis - AST 56 ALT 58. Was 26 and 21 in May 2016 # Chronic kidney disease - BUN/Cr: 23H/1.4H. Was 23/1.3 in May 2016 # Hypertension * Continue metoprolol succinate 25 mg daily # Hyperlipidemia * Continue atorvastatin 20 daily # Hypothyroidism * Continue levothyroxine 25 mg daily # Home meds * Continue senna * Continue fish oil, folic acid, iron * Continue alendronate weekly (qmon) * Continue aspirin 81 mg daily * Continue omeprazole 40 mg daily Diet: heart healthy DVT ppx: mech and pharm DNR/DNI Labs: none Problem List: 1. Influenza Pain Ratin Pain Location: none Pain Goal: Remain pain free Pain Plan: none Tomorrow's Labs & Rationales: none DVT/Prophylaxis: mechanical, pharmacological FOX ENGEL MD 11/15/16 1219: Attending MD Review Statement Attending Statement Attending MD Statement: examined this patient, discuss w/resident/PA/MOLDER CLOSED MOLDS, agreed w/resident/PA/MOLDER CLOSED MOLDS, reviewed EMR data (avail), discussed with nursing, discussed with case mgmt, amended to note Attending Assessment/Plan: Patient seen and examined. Resting comfortably and not in any acute distress. Reports mild cough productive of clear phlegm. Denies chest pain. Denies shortness or breath. She is maintaining saturation on room air. On examination lungs are clear bilaterally. She continues to have left upper extremity edema which she reports is chronic. She was reported to have black guaiac-positive stools yesterday. Hemoglobin however has been stable all through her admission. She has no bright red blood per rectum. Given her advanced age she will be managed conservatively. She is medically stable to be discharged home today. No further cardiac workup recommended at this time. She is to continue on the appropriate cardiac regimen which she was on prior to admission. She will be discharged on Tamiflu.
--- NOTE | 2016-11-15 06:59 | PN- Student ---
Subjective Subjective: Source: Patient Follow up for: Influenza Virus Positive I visited the patient this morning and she was on her bed. She didn't felt wonderful and there was no significant improvement when compared to yesterday. The patient mentioned that she has been coughing less since she was given Robitussin. The patient was told she is planned to be discharged today and the medications that are going to be given were explained to her and she understood. The patient denied any overnight complication and is ready to go home. Review of Systems: General: Mild respiratory distress. The patient is afebrile and is alert and oriented X3, but drowsy HEENT: NC/AT Cardiovascular: Denies chest pain and palpitations Respiratory: Mildly short of breath GI: Denies abdominal pain, constipation or nausea Objective Objective: Current Medications Sig/Tonya Start time Last Medication Dose Route Stop Time Status Admin Albuterol Sulfate 3 ML BID 11/13 1015 AC 11/14 INH 1022 Alendronate Sodium 70 MG QMON 11/18 0700 AC PO Aspirin Buffered 81 MG DAILY 11/13 1000 AC 11/14 PO 0925 Atorvastatin Calcium 20 MG 1700 11/13 1700 AC 11/14 PO 1633 Benzocaine/Menthol 1 WALLY Q2P PRN 11/14 0830 AC PO Ferrous Sulfate 325 MG DAILY 11/13 1000 AC 11/14 PO 0925 Fish Oil 1,050 MG DAILY 11/13 1000 AC 11/14 PO 0925 Folic Acid 1 MG DAILY 11/13 1000 AC 11/14 PO 0925 Guaifenesin/ 10 ML Q6P PRN 11/14 0830 AC Dextromethorphan PO Heparin Sodium 5,000 UNIT Q8 11/13 0726 AC 11/14 (Porcine) SC 0600 Levothyroxine Sodium 0.025 MG DAILY 11/13 1000 AC 11/14 PO 0925 Metoprolol Succinate 25 MG DAILY 11/13 1000 AC 11/14 PO 0925 Multivitamins 1 TAB DAILY 11/13 1000 AC 11/14 PO 0925 Omeprazole 40 MG DAILY AC 11/13 0700 AC 11/15 PO 0615 Oseltamivir Phosphate 30 MG BID 11/12 2200 AC 11/14 PO 11/16 2159 2140 Senna 187 MG AT BEDTIME PRN 11/12 1900 AC PO Vital Signs Date Time Temp Pulse Resp B/P Pulse O2 O2 Flow FiO2 Ox Delivery Rate 11/15 0000 Nasal 1.0L Cannula 11/14 2337 98.1 70 20 140/72 95 Nasal Cannula 11/14 1820 89 Room Air 11/14 1633 98.2 74 20 140/72 93 Room Air 11/14 1025 92 Room Air Room Air 11/14 0925 66 112/60 11/14 0800 97 Nasal 1.0L Cannula 11/14 0800 97.0 66 20 112/60 97 Nasal 1.0L Cannula Intake & Output 11/15 0800 11/15 0000 11/14 1600 Intake Total 120 360 480 Output Total Balance 120 360 480 Intake, Oral 120 360 480 Number 1 Bowel Movements Physical Examination: General: Patient is in acute respiratory distress, drowsy, alert and oriented X3 HEENT: EOMI, PERRL, NC/AT Neck: Supple Lungs: Diffuse wheezes bilaterally CV: Normal S1, S2 were heard; Normal rate; No murmurs or gallops were appreciated GI: Normal bowel sounds Lower Extremities: No pitting edema Neurological: Normal speech; no parasthesias/anesthesia present Results Results: Laboratory Tests 11/13/16 0640: Anion Gap 14, Estimated GFR 36 L, BUN/Creatinine Ratio 17.9, Triglycerides 154 H, Cholesterol 118, LDL Cholesterol, Calc 49 L, HDL Cholesterol 39 L, Cholesterol/HDL Ratio 3, CBC w Diff NO MAN DIFF REQ, RBC 3.82 L, MCV 87.9, MCH 28.1, RDW 16.0 H, MPV 7.6, Gran % 83.0 H, Lymphocytes % 10.6 L, Monocytes % 6.3, Eosinophils % 0, Basophils % 0.1, Absolute Granulocytes 4.5, Absolute Lymphocytes 0.6 L, Absolute Monocytes 0.3, Absolute Eosinophils 0, Absolute Basophils 0, PUBS MCHC 32.0 L 11/13/16 0635: pH 7.37, pCO2 42, pO2 70 L, HCO3 25, ABG O2 Sat (Measured) 96.0, P-50 (Temp Corrected) Y, Carboxyhemoglobin 0.3 L, O2 Concentration % 2 LPM, Temperature 93.0 L, O2 Delivery Method N/C, Phlebotomy Draw Site RIGHT RADIAL 11/12/16 2330: Troponin I 0.30 *H 11/12/16 1755: pH 7.30 *L, pCO2 47 H, pO2 75 L, HCO3 23, ABG O2 Sat (Measured) 94.0 L, Carboxyhemoglobin 0.2 L, O2 Concentration % 2L, O2 Delivery Method N/C, Phlebotomy Draw Site RIGHT RADIAL 11/12/16 1745: Troponin I 0.72 *H 11/12/16 1150: Anion Gap 11, Estimated GFR 36 L, BUN/Creatinine Ratio 16.4, Glucose 100 H, Calcium 7.7 L, Total Bilirubin 0.4, AST 56 H, ALT 58 H, Alkaline Phosphatase 89, Troponin I 0.87 *H, Total Protein 6.6, Albumin 3.5, Globulin 3.1, Albumin/ Globulin Ratio 1.1, CBC w Diff NO MAN DIFF REQ, RBC 3.71 L, MCV 87.4, MCH 28.5, RDW 16.3 H, MPV 7.3 L, Gran % 69.0, Lymphocytes % 19.7 L, Monocytes % 10.9 H , Eosinophils % 0.1, Basophils % 0.3, Absolute Granulocytes 3.7, Absolute Lymphocytes 1.1 L, Absolute Monocytes 0.6, Absolute Eosinophils 0, Absolute Basophils 0, PUBS MCHC 32.7 L 11/12/16 1146: Virus Culture Pending Assessment/Plan Assessment: Ms. Mcleod is a 86 y/o that came in to the [facility] due to flu-like symptoms. She has a PMHx of HTN, Hyperlipidemia, MS, GERD & CKD. Upon admission the patient had the following vital signs Temp (99.8), 86 BPM, 24 BrPM, 159/80 and an Oxygen Saturation of 97% on 4 L/min via NC. On laboratories it was sown that the patient has decreased Hgb and Hct (10.6 & 32.4, respectively), and increased BUN and Creatinine (23 & 1.4, respectively). Her cardiac enzyme assay showed increased Troponin (0.87) and CKMB (6.4). EKG findings were unremarkable (No ST elevations); Sinus Rythm and a QTc of 519. Given the previously mentioned signs, symptoms, clinical findings, imaging findings and Flu (+) test, it is most likely that all the symptoms for which the patient presented to the hospital are due to a Flu virus contraction. 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 Possible Diagnosis: 1) Flu Virus 2) Superimposed Bacterial Pneumonia 3) Acute Bronchitis Plan: Problem List & Plan: #Patient is ready for DC home today (patient has nursing care at home) 1) Positive Flu Test - Continue Tamiflu for 1 more day after discharge - Provide Robittusin for cough relief while the patient is at home 2) Chronic Kidney Disease - Continue observation of BUN and Creatinine values and monitor I&O's for changes in urinary output 3) Hypertension - Keep the patient on her home dose regimen of Metoprolol 25mg PO/daily 4) Hyperlipidemia - Keep the patient on her home dose regimen of Atorvastatin 20mg PO/daily 5) Heart Healthy Diet 6) DVT PPx - Cotinue SQ Lovenox 1/day - Continue on ALP's since the patient is motion restricted.
[2016-11-15 07:45] LABS: ABSOLUTE BASOPHIL COUNT 0 /CUMM (0.0-0.2); ABSOLUTE EOSINOPHIL COUNT 0 /CUMM (0.0-0.7); ABSOLUTE GRANULOCYTE CT 1.8 /CUMM (1.4-6.5); ABSOLUTE LYMPH COUNT 1.7 /CUMM (1.2-3.4); ABSOLUTE MONOCYTE COUNT 0.3 /CUMM (0.10-0.60); BASOPHIL % 0.4 % (0.0-2.0); EOSINOPHIL % 0.2 % (0-5); GRANULOCYTE % 47.8 % (42.2-75.2); HEMATOCRIT 31.2 % (37-47); MEAN CORPUSCULAR HGB 28.4 PG (27.0-31.0); MEAN CORPUSCULAR HGB CONC 32.7 G/DL (33.0-37.0); MEAN CORPUSCULAR VOLUME 86.8 FL (81.0-99.0); MEAN PLATELET VOLUME 7.6 FL (7.4-10.4); PLATELET COUNT 249 /CUMM (130-400); RBC DISTRIBUTION WIDTH 15.8 % (11.5-14.5); WHITE BLOOD CELL COUNT 3.9 /CUMM (4.8-10.8)
[2016-11-15] MEDS ORDERED: TAMIFLU30 M1 PO (08:01)
[2016-11-15 08:02] VITALS: BP 160/82
[2016-11-15 11:50] VITALS: BP 148/74
--- NOTE | 2016-11-15 11:52 | Discharge Summary ---
Visit Information Visit Dates Admission Date: 11/12/16 Discharge Date: 11/15/16 Hospital Course Course Attending Physician: Dr. Alva Primary Care Physician: TYLER JANG,JAKUB Hernández Hospital Course: 86-year-old female with PMH of HTN, HLD, MS, hep B, GERD, constipation, CKD, presented with "cold for 4-5 days" and worsening shortness of breath since morning of admission. She was put on oxygen and was asked to come to ED. She was satting at 97% on 4L on presentation, but was noticably lethargic and short of breath. ABG done and was 7.30/47H/75L/23, which improved to 7.37/42/70L/25 the next morning with bipap. On admission, Trop found to be elevated at 0.87 with T wave flattening in V2-V5. Flu was positive, tamiflu started. Pt was admitted for acute hypoxic respiratory failure most likely due to influenza, with demand ischemia without chest pain. Her respiratory status improved, she was not short of breath at discharge and was breathing room air. Given her age, no anticoagulation was pursued. Her stool was dark tarry with positive stool guaiac. However, h/h was stable. Pt was discharged to complete a total of 5 days of tamiflu. For more detailed hospital course, see below: # Positive flu * Tamiflu day 4/5, discharge to complete 5 days * Robitussin and lozenges for cough #Troponinemia most likely demand ischemia vs renal dysfunction - Last echo december 2014: stage 1 diastolic dysfunction, LVEF > 65% - Trop 0.87 --> 0.72 --> 0.3 - Oct 2016 Echo: moderate left concentric hypertrophy, normal LVEF > 75%. Stage 1 diastolic dysfunction, RV systolic pressure 40 mm hg * Dr. Gongora consulted * Continue Aspirin # Guaiac positive stool * F/U OP with PCP for further workup, h/h stable # Mild transaminitis - AST 56 ALT 58. Was 26 and 21 in May 2016 # Chronic kidney disease - BUN/Cr: 23H/1.4H. Was 23/1.3 in May 2016 # Hypertension * Continue metoprolol succinate 25 mg daily # Hyperlipidemia * Continue atorvastatin 20 daily # Hypothyroidism * Continue levothyroxine 25 mg daily # Home meds * Continue senna * Continue fish oil, folic acid, iron * Continue alendronate weekly (qmon) * Continue aspirin 81 mg daily * Continue omeprazole 40 mg daily Diet: heart healthy DVT ppx: mech and pharm DNR/DNI Allergies: Coded Allergies: codeine (UNKNOWN 11/12/16) Cephalosporins (Intermediate, DIARRHEA 11/12/16) Significant Procedures: ECHO FINDINGS Left Ventricle Normal size left ventricle. Moderate concentric left ventricular hypertrophy. Normal left ventricular ejection fraction visually estimated at >65 %. No obvious regional wall motion abnormalities. Abnormal relaxation filling pattern of the left ventricle for age (stage 1 diastolic dysfunction). Right Ventricle The right ventricle is normal in size and function. Right Atrium The right atrium is normal in size. Left Atrium The left atrium is normal in size. The interatrial septum is intact. Mitral Valve Mild thickening/calcification of the mitral valve leaflets. Mild mitral annular calcification. Trace mitral regurgitation. Aortic Valve Focal thickening of the aortic valve cusps. No aortic stenosis. Mild aortic regurgitation. Tricuspid Valve The tricuspid valve is normal in structure and function. There is trace to mild tricuspid regurgitation. Right ventricular systolic pressure estimated to be elevated at 40 mmHg. Pulmonic Valve Structurally normal pulmonic valve. There is trace pulmonic regurgitation. Pericardium Normal pericardium without effusion. No pleural effusion. Great Vessels Normal aortic root dimension. The aortic arch and great vessels are well seen and are normal. CONCLUSIONS Moderate concentric left ventricular hypertrophy. Normal left ventricular ejection fraction visually estimated at >65 No obvious regional wall motion abnormalities. Abnormal relaxation filling pattern of the left ventricle for age (stage 1 diastolic dysfunction). The left atrium is normal in size. Mild thickening/calcification of the mitral valve leaflets. Mild mitral annular calcification. Trace mitral regurgitation. Focal thickening of the aortic valve cusps. No aortic stenosis. Mild aortic regurgitation. Right ventricular systolic pressure estimated to be elevated at 40 mmHg. Panfilo Gongora M.D. (Electronically Signed) Final Date: 14 November 2016 09:20 CXR IMPRESSION: Left base disease which may be related to atelectasis or small focus of pneumonitis. Cardiomegaly without pulmonary edema. DICTATED BY: LARISSA CANSECO MD DATE/TIME DICTATED:11/12/16 / 1234 Disposition Summary Disposition Principal Diagnosis: Influenza A pneumonia. Non-ST elevation ID. Additional Diagnosis: Guaiac-positive stools. Stable chronic anemia. Discharge Disposition: home health services Discharge Instructions General Discharge Information Code Status: Do Not Resucitate/Intubat Patient's Diet: Regular Patient's Activity: As tolerated Follow-Up Instructions/Appts: You were seen/treated for: - Flu - Demand ischemia Watch for these problems: - Increased shortness of breath - Increased lethargy - Blood in stool Special Instructions: - Please follow up with PCP in 1 week. - Please discuss with PCP regarding workup for positive blood in stool ( colonoscopy?) - Follow-up with primary care provider for monitoring of hemoglobin levels. Medications at Discharge Discharge Medications: Continue taking these medications: Levothyroxine Sodium (Levothyroxine Sodium) 25 MCG TABLET 1 Tablet ORAL DAILY Qty = 30 Comments: Last Taken: 11/15/16 Time: 10:00 AM Atorvastatin Calcium (Atorvastatin Calcium) 20 MG TABLET 1 Tablet ORAL DAILY Qty = 30 Comments: Last Taken: 11/14/16 Time: 4:30 PM Omeprazole (Omeprazole) 40 MG CAPSULE.DR 1 Capsule ORAL DAILY Qty = 30 Comments: Last Taken: 11/15/16 Time: 6:00 AM Metoprolol Succinate (Metoprolol Succinate) 25 MG TAB 1 Tablet ORAL DAILY Qty = 30 Comments: Last Taken: 11/15/16 Time: 10:00 AM Alendronate Sodium (Alendronate Sodium) 70 MG TABLET 1 Tablet ORAL Once a Week Qty = 4 Instructions: in the morning, at least 30 minutes before the first food, beverage, or medication of the day Comments: NOT TAKEN IN HOSPITAL Folic Acid (Folic Acid) 1 MG TABLET 1 Tablet ORAL DAILY Comments: Last Taken: 11/15/16 Time: 10:00 AM Aspirin (Ecotrin*) 81 MG TABLET.DR 1 Tablet ORAL DAILY Comments: Last Taken: 11/15/16 Time: 10:00 AM Fish Oil/Borage/Flax/Om3,6,9#1 ([place] 3-6-9 1,200 MG Softgel) 1,200 MG CAPSULE 1 Capsule ORAL DAILY Comments: Last Taken: 11/15/16 Time: 10:00 AM Sennosides (Senna) 8.6 MG TABLET 2 Tablet ORAL DAILY Comments: NOT TAKEN IN HOSPITAL Ferrous Sulfate (Ferrous Sulfate) 325 MG (65 MG IRON) TABLET 1 Tablet ORAL DAILY Comments: Last Taken: 11/15/16 Time: 10:00 AM Start taking the following new medications: Oseltamivir Phosphate (Tamiflu) 30 MG CAPSULE 1 Capsule ORAL TWICE DAILY Qty = 3 No Refills Guaifenesin/Dextromethorphan (Robafen-Dm Syrup) 100 MG-10 MG/5 ML SYRUP 10 Milliliters ORAL Every 4 hours Qty = 180 No Refills Copies To: TYLER JANG,JAKUB Hernández Attending MD Review Statement Documenting Attending: FOX ALVA M.D Other Findings: I have reviewed the discharge summary.
== END 2016-11-15 12:10 | disposition home health service (06) | DRG 193 ==
LOC: ENRESERVDT → ENRESERVTM → ERH 11:15 → 1NO 14:33 → ERHI 14:33 → 1NO 14:33 → ENPENDDIS 14:33 → 1NO 19:02
PROVIDERS: Emergency Medicine; Radiology Diagnostic Radiology; Student in an Organized Health Care Education/Training Program; ADMIT Internal Medicine
PROC: 5A09357 Assistance with Respiratory Ventilation, Less than 24 Consecutive Hours, Continuous Positive Airway Pressure (ICD-10-PCS; principal; 2016-11-12)
DX: J10.00 Influenza due to other identified influenza virus with unspecified type of pneumonia (principal); J96.01 Acute respiratory failure with hypoxia; I24.8 Other forms of acute ischemic heart disease; B19.10 Unspecified viral hepatitis B without hepatic coma; G35 Multiple sclerosis; K21.9 Gastro-esophageal reflux disease without esophagitis; Z86.718 Personal history of other venous thrombosis and embolism; E78.5 Hyperlipidemia, unspecified; I12.9 Hypertensive chronic kidney disease with stage 1 through stage 4 chronic kidney disease, or unspecified chronic kidney disease; N18.9 Chronic kidney disease, unspecified
CPT/HCPCS: 1NP; 36415; 82436; 87804; 87804-59; 93005; 93010; 93306; 96374; 99291; J1644; J3490

== ENCOUNTER 2017-08-18 05:29 | Emergency (ER) | payer OTHER, MEDICARE ==
[~2017-08-18] VITALS: Ht 152.4 cm; Wt 72.6 kg
[~2017-08-18 05:29] MED LIST changes: +ALENDRONATE SOD70 M2 PO; +ASPIRIN EC81 M1 PO; +ATORVASTATIN CA20 M1 PO; +FERROUS SULFAT325 M3 PO; +FOLIC ACID1 M1 PO; +LEVOTHYROXINE25 MCG PO; +METOPROLOL SUCC25 M1 PO; +OMEGA 3-6-9 11200 MG PO; +OMEPRAZOLE40 M1 PO; +ROBAFEN-DM SYR118 ML PO; +SENNA8.6 M3 PO; +TAMIFLU30 M1 PO
--- NOTE | 2017-08-18 05:55 | ED UPPER/LOWER EXTREMITY COMPL ---
History of Present Illness General Chief Complaint: General Adult Stated Complaint: "BIBA PER EMS RT HIP PAIN" Source: patient, old records, EMS Exam Limitations: no limitations Allergies Coded Allergies: codeine (UNKNOWN 11/12/16) Cephalosporins (Intermediate, DIARRHEA 11/12/16) Reconcile Medications Alendronate Sodium 70 MG TABLET 1 TAB PO QW BONES (Reported) in the morning, at least 30 minutes before the first food, beverage, or medication of the day Aspirin (Ecotrin*) 81 MG TABLET.DR 1 TAB PO DAILY HEART (Reported) Atorvastatin Calcium 20 MG TABLET 1 TAB PO DAILY CHOLESTEROL (Reported) Ferrous Sulfate 325 MG (65 MG IRON) TABLET 1 TAB PO DAILY SUPPLEMENT ( Reported) Fish Oil/Borage/Flax/Om3,6,9#1 ([place] 3-6-9 1,200 MG Softgel) 1,200 MG CAPSULE 1 CAP PO DAILY SUPPLEMENT (Reported) Folic Acid 1 MG TABLET 1 TAB PO DAILY SUPPLEMENT (Reported) Levothyroxine Sodium 25 MCG TABLET 1 TAB PO DAILY AC THYROID (Reported) Metoprolol Succinate 25 MG TAB 1 TAB PO DAILY HEART/BP (Reported) Omeprazole 40 MG CAPSULE.DR 1 CAP PO DAILY GI (Reported) Sennosides (Senna) 8.6 MG TABLET 2 TAB PO DAILY SUPPLEMENT (Reported) Triage Note: TRIAGE: BIBA FROM HOME W/ ATRAUMATIC R HIP PAIN, PATIENT HX MS W/ CHRONIC PAIN. PATIENT REPORTS NO KNOWN INJURY TO SITE, DENIES ANY RECENT FALLS. MD RODRIGUEZ AT BEDSIDE ON PATIENT ARRIVAL TO DEPT. CURRENT PAIN 07/08. Triage Nurses Notes Reviewed? yes Onset: Abrupt Duration: day(s): (2) Timing: multiple episodes today Severity: severe Pain/Injury Location: Right: Hip, Leg, Knee, Thigh. Method of Injury: NONE Modifying Factors: Worsens With: movement. HPI: This is an 79-year-old female with history of MS, wheelchair bound presents by EMS for chief complaint of severe right hip, right groin and right leg pain for the past 2 days. She states she was unable to sleep last night and also Friday night. Patient takes Tylenol at home but did not take any prior to arrival. She denies any trauma. She is transferred from bed to wheelchair by her and she also has ate that, in the morning and at night. Patient denies any fever chills chest pain shortness of breath or abdominal pain. She states that she has history of pain but this is more severe than usual. (Sonam Rodriguez MD) Vital Signs & Intake/Output Vital Signs & Intake/Output Vital Signs Date Time Temp Pulse Resp B/P B/P Pulse O2 O2 Flow FiO2 Mean Ox Delivery Rate 08/18 0914 97.8 79 20 144/73 95 Room Air 08/18 0721 97.0 78 20 166/76 96 Room Air 08/18 0657 98 Room Air 08/18 0632 98.0 08/18 0534 98.0 83 18 127/67 92 Room Air (Maria Esther JANG,Weston Mosher) Past History Travel History Traveled to [place] past 21 day No Medical History Any Pertinent Medical History? 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 No (Sonam Rodriguez MD) Review of Systems Review of Systems Constitutional: Denies: chills, fever. EENTM: Reports: no symptoms. Respiratory: Denies: cough, short of breath. Cardiovascular: Denies: chest pain. Gastrointestinal/Abdominal: Denies: abdominal pain. Genitourinary: Reports: no symptoms. Musculoskeletal: Reports: joint pain, muscle pain, muscle stiffness. Skin: Reports: no symptoms. Neurological/Psychological: Reports: no symptoms. Hematologic/Endocrine: Denies: bruising, bleeding, polyuria, polydipsia. Immunological: Reports: no symptoms. All Other Systems: Reviewed and Negative (Sonam Rodriguez MD) Physical Exam Physical Exam General Appearance: well developed/nourished, alert, awake, anxious, mild distress, moderate distress Head: atraumatic Eyes: Bilateral: PERRL, EOMI. Ears, Nose, Throat: normal pharynx, normal ENT inspection, hearing grossly normal Neck: normal inspection, supple Cardiovascular/Respiratory: regular rate/rhythm Peripheral Pulses: 2+ radial (R), 2+ radial (L) Back: normal inspection Leg Right: normal range of motion, normal inspection Hip Left: normal range of motion, normal inspection Hip Right: HOLDING IN FLEXED POSITION, STIFF Knee Left: normal range of motion, normal inspection Knee Right: normal range of motion, normal inspection Foot Left: normal inspection, normal range of motion Foot Right: normal inspection, normal range of motion Neurologic/Tendon: normal sensation, normal motor functions, normal tendon functions Skin: intact, normal color, warm/dry Lymphatic: no anterior cervical doris (Jennifer JANG,Sonam) Progress Differential Diagnosis: fracture, sprain, MUSCLE SPASM, OSTEOPENIA Diagnostic Imaging: Viewed by Me: Radiology Read. Discussed w/RAD: Radiology Read. Radiology Impression: PATIENT: LUIS TRIMBLE PRESENT AGE: 87 PATIENT ACCOUNT NO: [id number] : 29 LOCATION: [facility] ORDERING PHYSICIAN: Sonam Rodriguez MD SERVICE DATE: 08/18/17 EXAM TYPE: RAD - XRY -AP PELVIS; XRY-FEMUR, 2 VIEWS RIGHT; XRY-HIP 2-3 VIEWS, RIGHT EXAMINATIONS: PELVIS 1 VIEW AND RIGHT HIP 2 VIEWS AND RIGHT FEMUR 2 VIEWS CLINICAL INFORMATION : Pain. COMPARISON: None. TECHNIQUE: A supine view of the pelvis is provided. AP neutral and frog-leg lateral views of the right hip are provided. AP and lateral views of the right femur are provided. FINDINGS: There are no fractures. Both femoral heads are seated within well-formed acetabula. No dysplastic changes are identified. The visualized bowel gas pattern is unremarkable. There is a possibly of musculature. IMPRESSION: No acute fracture demonstrable. DICTATED BY : Stuart Girard MD DATE/TIME DICTATED:08/18/17630 INSIGHTS STRATEGIST:XIOMARA DATE/TIME TRANSCRIBED:08/18/17630 CONFIDENTIAL, DO NOT COPY WITHOUT APPROPRIATE AUTHORIZATION. <Electronically signed in Other Vendor System> SIGNED BY: Stuart Girard MD 08/18/17635 Hand-Off Endorsed To: Weston Mayo MD Endorsed Time: 0700 Pending: labs (Sonam Rodriguez MD) Plan of Care: Orders Procedure Date/time Status COMPREHENSIVE METABOLIC PANEL 08/18 542 Complete CBC WITHOUT DIFFERENTIAL 08/18 542 Complete Laboratory Tests 08/18/17 0627: Anion Gap 7, Estimated GFR 39 L, BUN/Creatinine Ratio 15.4, Glucose 88, Calcium 8.7, Total Bilirubin 0.2, AST 23, ALT 33, Alkaline Phosphatase 84, Total Protein 6.2 L, Albumin 3.4 L, Globulin 2.8, Albumin/Globulin Ratio 1.2, CBC w Diff NO MAN DIFF REQ, RBC 3.06 L, MCV 89.3, MCH 28.0, RDW 16.9 H, MPV 7.2 L, Gran % 61.7, Lymphocytes % 28.5, Monocytes % 7.8, Eosinophils % 1.8, Basophils % 0.2, Absolute Granulocytes 4.0, Absolute Lymphocytes 1.9, Absolute Monocytes 0.5, Absolute Eosinophils 0.1, Absolute Basophils 0, PUBS MCHC 31.3 L Comments: 08/18/2017 8:49:18 AM patient signed out to me by Dr. Rodriguez at shift change management specialist. Her evaluation reveals anemia (chronic for patient-on iron supplementation) and renal insufficiency (stable). The patient and her daughter feel she can return home despite the significant level of her pain. They have a home health aide that helps at home. The patient does have mottling of the buttocks area consistent with pressure ischemia. There is no skin breakdown that I can determine. The patient and her daughter are unaware of these areas and have been attempting to change her positioning to prevent worsening. I've expressed my concern that if her pain isn't adequately controlled she would be unable to move and therefore worsen the ischemic changes of her buttocks. However the daughter states that she would typically refuses pain medications, not liking the way they make her feel. She feels confident they can manage things at home. (Maria Esther JANG,Weston Mosher) Departure Departure Condition: Stable Clinical Impression Primary Impression: Right leg pain Referrals: Kathy JANG,Juventino Hernández (PCP/Family) Departure Forms: Customer Survey General Discharge Information (Sonam Rodriguez MD) Departure Disposition: HOME OR SELF CARE Additional Instructions: Tylenol 650 mg alternating with ibuprofen 400 mg every 3 hours as needed for pain. Follow-up with your primary care physician for reevaluation within the next 48-72 hours. Return if any concerns or sudden worsening. Please note that there might be incidental findings in your evaluation that are unrelated to the current emergency department visit. Please notify your primary care doctor about this emergency department visit in order to obtain and review all of the testing performed so that these incidental findings can be monitored as needed. If you had an x-ray performed, please understand that some fractures may not be seen on the initial set of x-rays. If your symptoms persist you might need a repeat set of x-rays to check for such a fracture. If you had a laceration evaluated, please understand that foreign bodies such as glass or wood may not be visible to the naked eye or on plain x-rays. If the wound becomes red, swollen, increasingly more painful or if there is any drainage from the wound, please have it reevaluated by a physician for the possibility of a retained foreign body. If you're unable to follow up as outlined in the discharge instructions please return to the emergency department. Thank you for choosing the [facility] Emergency Department for your care. It was a pleasure to serve you today. Weston Mayo M.D. [facility] (Maria Esther JANG,Weston Mosher) return to the emergency department. Thank you for choosing the [facility] Emergency Department for your care. It was a pleasure to serve you today. Weston Mayo M.D. [facility] (Maria Esther JANG,Weston Mosher)
--- NOTE | 2017-08-18 06:36 | RADIOLOGY REPORT ---
EXAMINATIONS: PELVIS 1 VIEW AND RIGHT HIP 2 VIEWS AND RIGHT FEMUR 2 VIEWS CLINICAL INFORMATION: Pain. COMPARISON: None. TECHNIQUE: A supine view of the pelvis is provided. AP neutral and frog-leg lateral views of the right hip are provided. AP and lateral views of the right femur are provided. FINDINGS: There are no fractures. Both femoral heads are seated within well-formed acetabula. No dysplastic changes are identified. The visualized bowel gas pattern is unremarkable. There is a possibly of musculature. IMPRESSION: No acute fracture demonstrable.
[2017-08-18 06:41] LABS: ABSOLUTE BASOPHIL COUNT 0 /CUMM (0.0-0.2); ABSOLUTE EOSINOPHIL COUNT 0.1 /CUMM (0.0-0.7); ABSOLUTE LYMPH COUNT 1.9 /CUMM (1.2-3.4); ABSOLUTE MONOCYTE COUNT 0.5 /CUMM (0.10-0.60); BASOPHIL % 0.2 % (0.0-2.0); EOSINOPHIL % 1.8 % (0-5); GRANULOCYTE % 61.7 % (42.2-75.2); HEMATOCRIT 27.3 % (37-47); MEAN CORPUSCULAR HGB CONC 31.3 G/DL (33.0-37.0); MEAN CORPUSCULAR VOLUME 89.3 FL (81.0-99.0); MEAN PLATELET VOLUME 7.2 FL (7.4-10.4); PLATELET COUNT 395 /CUMM (130-400); RBC DISTRIBUTION WIDTH 16.9 % (11.5-14.5); RED BLOOD CELL CT 3.06 /CUMM (4.20-5.40); WHITE BLOOD CELL COUNT 6.5 /CUMM (4.8-10.8)
[2017-08-18 09:14] VITALS: BP 144/73
== END 2017-08-18 09:46 ==
LOC: ERH 05:29
PROVIDERS: Emergency Medicine
DX: M79.604 Pain in right leg (principal)
CPT/HCPCS: 72170; 73502-RT; 73552; 96365; J0131

== ENCOUNTER 2017-10-16 18:47 | Inpatient (IN) | payer OTHER, MEDICARE ==
[~2017-10-16] VITALS: Ht 149.9 cm; Wt 81.6 kg
--- NOTE | 2017-10-16 18:53 | ED UPPER/LOWER EXTREMITY COMPL ---
History of Present Illness General Chief Complaint: Lower Extremity Injury Stated Complaint: LEG INJURY Source: patient, family, old records Exam Limitations: no limitations Vital Signs & Intake/Output Vital Signs & Intake/Output Vital Signs Date Time Temp Pulse Resp B/P B/P Pulse O2 O2 Flow FiO2 Mean Ox Delivery Rate 10/16 2325 84 16 179/81 96 Room Air 10/167 97.5 86 18 196/106 93 Room Air ED Intake and Output 10/17 0000 10/16 1200 Intake Total 0 Output Total Balance 0 Intake, Oral 0 Allergies Coded Allergies: codeine (PASSED OUT AND ENDED UP ON THE FLOOR PER PT 10/16/17) Cephalosporins (Intermediate, DIARRHEA 11/12/16) Reconcile Medications Alendronate Sodium 70 MG TABLET 1 TAB PO QMON BONES (Reported) in the morning, at least 30 minutes before the first food, beverage, or medication of the day Aspirin (Ecotrin*) 81 MG TABLET.DR 1 TAB PO DAILY HEART (Reported) Atorvastatin Calcium 20 MG TABLET 1 TAB PO DAILY CHOLESTEROL (Reported) Ferrous Sulfate 325 MG (65 MG IRON) TABLET 1 TAB PO DAILY SUPPLEMENT ( Reported) Fish Oil/Borage/Flax/Om3,6,9#1 ([place] 3-6-9 1,200 MG Softgel) 1,200 MG CAPSULE 1 CAP PO DAILY SUPPLEMENT (Reported) Folic Acid 1 MG TABLET 1 TAB PO DAILY SUPPLEMENT (Reported) Levothyroxine Sodium 25 MCG TABLET 1 TAB PO DAILY AC THYROID (Reported) Metoprolol Succinate 25 MG TAB 1 TAB PO DAILY HEART/BP (Reported) Omeprazole 40 MG CAPSULE.DR 1 CAP PO DAILY GI (Reported) Sennosides (Senna) 8.6 MG TABLET 2 TAB PO DAILY SUPPLEMENT (Reported) Triage Note: PT BIBA FROM HOME. PT REPORTS SHE WAS USING HER POWER WHEELCHAIR AND HIT HER LEG ON A TABLE. PT HAS BRUISING AND SWELLING TO RIGHT LEG. PT C/O "SPASM" TO CALF. Triage Nurses Notes Reviewed? yes Onset: Abrupt Duration: day(s): (1), constant Severity: severe Severity Numbers: 10 Pain/Injury Location: Right: Foot, Ankle. Method of Injury: direct blow Modifying Factors: Worsens With: movement. Associated Symptoms: swelling HPI: 87 year old female with history of HTN, HLD, MS, hep B, GERD, constipation, CKD presents after she states she was in her power wheelchair and accidentally ran into her TV cabinet which caused a stone sculpture to fall on her right foot. she now presents with 10/10 pain to the foot rad up her leg. she report sto swelling, no numbness. no other injury. she did not fall out of her chair. no chest pain, no dyspnea, abd pain. (Rey Morel) Past History Travel History Traveled to [place] past 21 day No Medical History Any Pertinent Medical History? see below for history Neurological: multiple sclerosis EENT: vocal cord paralysis Cardiovascular: hypertension, HYPERCOLESTERALEMIA Respiratory: NONE Gastrointestinal: GERD, CONSTIPATION Hepatic: hepatitis B Renal: NONE Musculoskeletal: OSTEOARTHRITIS STAGE II PRESSURE ULCER Psychiatric: NONE Endocrine: NONE Blood Disorders: DENIES Cancer(s): melanoma CHIEF OF HOSPITAL MEDICINE/Reproductive: NONE Other Medical Hx: MS - wheelchair bound, osteoporosis History of MRSA: No History of VRE: Yes History of CDIFF: No Surgical History Surgical History: non-contributory Psychosocial History Who do you live with Spouse Services at Home Home Health Aide, Nursing What is your primary language Slovak Tobacco Use: Never used Daily Tobacco Use Amount/Type: =< 4 Cigarettes daily Family History Family History, If Any: MOTHER FH: breast cancer FH: lung cancer FATHER FH: tuberculosis Hx Contributory? No (Rey Morel) Review of Systems Review of Systems Constitutional: Reports: see HPI. Comments Review of systems: See HPI, All other systems negative. Constitutional, no chills no fever, HEENT: no sore throat no congestion, Cardiovascular: No chest pain Skin: no rashes, no change in skin Respiratory: No dyspnea no cough no sputum GI: No nausea no vomiting, : No dysuria Muscle skeletal: joint pain, no back pain, no neck pain, Neurologic: , no headache Psych: No stress Heme/endocrine: No bruising Immunology: No lymphadenopathy (Rey Morel) Physical Exam Physical Exam General Appearance: well developed/nourished, alert, awake Comments: Well-developed well-nourished patient in no apparent distress. HEENT: Atraumatic, extraocular motion intact Neck: Supple, FROM Back: FROM Cardiovascular: Regular rate and rhythms no murmurs rubs or gallops, Respiratory: Chest nontender.There were no bony deformities, no asymmetry. No respiratory distress. Patient speaking in full complete sentences. Breath sounds clear to auscultation bilaterally: NO W/R/R upper Extremities: full range of motion Hip/Pelvis: Atraumatic/Stable. FROM. No pain with pelvic compression Knee: Atraumatic/stable. FROM. No joint swelling, no effusion. No laxity. Negative martha/anterior drawer test. No pain with ROM Leg: Atraumatic. Nontender. No edema, 5 out of 5 strength in the lower extremity, normal dorsiflexion of great toe bilaterally, gross sensation is intact Ankle/Foot: Skin intact. lROM secondary to pain (+) swelling no ecchymosis. No laxity on exam Pulses: Normal/equal DP/PT pulses bilaterally. Brisk cap refill Neuro: awake, alert, and oriented to person, place and time. There were no obvious focal neurologic abnormalities. Skin: Warm & dry;No appreciable rash on exposed skin Psych: Mood affect normal, normal memory normal judgment. (Rashi HERRERA,Rey) Progress Differential Diagnosis: compartment syndrome, contusion, dislocation, fracture, gout, sprain, tendon injury Plan of Care: Orders Procedure Date/time Status Regular Diet 10/17 B Active Code Status 10/17 0002 Active Pathway - chart 10/16 2319 Active House Staff 10/16 2320 Active Patient Data 10/16 2320 Active Code Status 10/16 2320 Complete Patient Data 10/16 2255 Active OXYGEN SETUP (GEN) 10/16 2245 Active Saline Lock 10/16 2245 Active Admit to inpatient 10/16 224 Active Vital Signs 10/16 2246 Active Activity/Ambulation 10/16 224 Active Code Status 10/16 2246 Complete CASE MANAGEMENT CONSULT 10/16 2200 Active COMPREHENSIVE METABOLIC PANEL 10/16 2038 Complete CBC WITHOUT DIFFERENTIAL 10/16 2038 Complete EKG 10/16 2038 Active Intake & Output 10/16 1848 Active VTE Mechanical Prophylaxis 10/16 UNK Active Current Medications Sig/Tonya Start time Last Medication Dose Stop Time Status Admin Atorvastatin Calcium 20 MG 1700 10/17 1700 AC (Lipitor) Aspirin Buffered 81 MG DAILY 10/17 1000 AC (Ecotrin) Enoxaparin Sodium 40 MG DAILY 10/17 1000 UNVr (Lovenox) Ferrous Sulfate 325 MG DAILY 10/17 1000 AC (Feosol) Folic Acid 1 MG DAILY 10/17 1000 AC (Folic Acid) Metoprolol Succinate 25 MG DAILY 10/17 1000 AC (Toprol XL) Levothyroxine Sodium 0.025 MG DAILY AC 10/17 0700 AC (Synthroid) Omeprazole 40 MG DAILY AC 10/17 07 AC (Prilosec) Polyethylene Glycol 17 GM DAILY PRN 10/17 0015 AC (Miralax) Tramadol HCl 50 MG Q6 PRN 10/17 0015 AC (Ultram) Acetaminophen 650 MG Q8 PRN 10/16 2330 AC (Tylenol) Laboratory Tests 10/16/172054: Anion Gap 13, Estimated GFR 52 L, BUN/Creatinine Ratio 22.0, Glucose 90, Calcium 8.6, Total Bilirubin 0.3, AST 21, ALT 28, Alkaline Phosphatase 98, Total Protein 6.5, Albumin 3.6, Globulin 2.9, Albumin/Globulin Ratio 1.2, CBC w Diff NO MAN DIFF REQ, RBC 2.94 L, MCV 90.1, MCH 28.2, RDW 15.5 H, MPV 7.1 L, Gran % 72.7, Lymphocytes % 20.7, Monocytes % 5.6, Eosinophils % 0.7, Basophils % 0.3, Absolute Granulocytes 6.3, Absolute Lymphocytes 1.8, Absolute Monocytes 0.5, Absolute Eosinophils 0.1, Absolute Basophils 0, PUBS MCHC 31.3 L X-rays ordered patient medicated tramadol 1. I discussed the patient her family at length her x-ray findings she reports to improvement in symptoms with tramadol. post splint applied by me. case d/w dr christiano last with plan case d/w dr duggan will admit Diagnostic Imaging: Viewed by Me: Radiology Read. Discussed w/RAD: Radiology Read. Radiology Impression: PATIENT: LUIS TRIMBLE PRESENT AGE: 87 PATIENT ACCOUNT NO: [id number] : 29 LOCATION: [facility] ORDERING PHYSICIAN: Rey HERRERA SERVICE DATE: 10/16/17 EXAM TYPE: RAD - XRY- ANKLE 3 OR MORE VIEWS R; XRY-FOOT COMPLETE, R; [id number], RIGHT EXAMINATION: 1. Right foot. 2. Right ankle. 3. Right tibia-fibula. CLINICAL INFORMATION: Trauma. Pain. COMPARISON: Right tibia-fibula 09/27/2015 TECHNIQUE: 1. Right foot. 3 views 2. Right ankle. 3 views 3. Right tibia-fibula. 2 views FINDINGS: 1. Right foot. There is osteopenia. There is slightly displaced transverse fracture through the neck of the second and third metatarsal. 2. Right ankle. There is osteopenia. No displaced fracture. No dislocation. 3. Right tibia-fibula. There is osteopenia. There is a healed transverse fracture at the metadiaphysis of both the proximal tibia and fibula. There is residual deformity of both fractures. No acute fracture. No dislocation of the knee. IMPRESSION: 1. Right foot. Osteopenia. Slightly displaced transverse fracture through the neck of the second and third metatarsal. 2. Right ankle. Osteopenia. No displaced fracture. 3. Right tibia-fibula. Osteopenia. Old healed fracture of the proximal metadiaphysis of the tibia and fibula. No acute fracture. DICTATED BY: Alton Ferrari MD DATE/TIME DICTATED:10/16/172010 CONTROL SUPERVISOR:XIOMARA DATE/TIME TRANSCRIBED:10/16/172010 CONFIDENTIAL, DO NOT COPY WITHOUT APPROPRIATE AUTHORIZATION. <Electronically signed in Other Vendor System> SIGNED BY: Alton Ferrari MD 10/16/172021 Initial ED EKG: nsr at 90, no acute st seg changes, normal axis Prior EKG: unchanged (10/2016) (Rey Morel) Departure Departure Time of Disposition: 2251 Disposition: STILL A PATIENT Condition: Stable Clinical Impression Primary Impression: Metatarsal fracture Secondary Impressions: Unsteady gait Referrals: Kathy JANG,Juventino Hernández (PCP/Family) Departure Forms: Customer Survey General Discharge Information Admission Note Spoke With: Ashley Duggan MD Documentation of Exam: Documentation of any treatments & extenuating circumstances including Concerns Regarding Discharge (functional status, medication knowledge or non-compliance, living conditions, etc.) that warrant an admission rather than observation: case managmenet, ortho consult, pt is nonweightbearing, not at baseline, premature discharge woudl be medically harmful (Rey Morel) PA/BASKET OPERATOR Co-Sign Statement Statement: ED Attending supervision documentation- x I saw and evaluated the patient. I have also reviewed all the pertinent lab results and diagnostic results. I agree with the findings and the plan of care as documented in the PA's/BASKET OPERATOR's documentation. Blunt trauma to R foot resulting in 2nd and 3rd metatarsal fx unable to ambulate or bear weight. [] I have reviewed the ED Record and agree with the PA's/BASKET OPERATOR's documentation. [] Additions or exceptions (if any) to the PAs/BASKET OPERATOR's note and plan are summarized below: [] (Christiano JANG,Valentín) Procedures Splinting Location: rle Manual Alignment Performed: No Hand-Made Type: orthoglass Splint: posterior walking Splint Applied By: splint applied by me Pre-Proc Neuro Vasc Exam: normal Post-Proc Neuro Vasc Exam: normal (Rey Morel)
--- NOTE | 2017-10-16 20:22 | RADIOLOGY REPORT ---
EXAMINATION: 1. Right foot. 2. Right ankle. 3. Right tibia-fibula. CLINICAL INFORMATION: Trauma. Pain. COMPARISON: Right tibia-fibula 09/27/2015 TECHNIQUE: 1. Right foot. 3 views 2. Right ankle. 3 views 3. Right tibia-fibula. 2 views FINDINGS: 1. Right foot. There is osteopenia. There is slightly displaced transverse fracture through the neck of the second and third metatarsal. 2. Right ankle. There is osteopenia. No displaced fracture. No dislocation. 3. Right tibia-fibula. There is osteopenia. There is a healed transverse fracture at the metadiaphysis of both the proximal tibia and fibula. There is residual deformity of both fractures. No acute fracture. No dislocation of the knee. IMPRESSION: 1. Right foot. Osteopenia. Slightly displaced transverse fracture through the neck of the second and third metatarsal. 2. Right ankle. Osteopenia. No displaced fracture. 3. Right tibia-fibula. Osteopenia. Old healed fracture of the proximal metadiaphysis of the tibia and fibula. No acute fracture.
[2017-10-16 21:23] LABS: ABSOLUTE BASOPHIL COUNT 0 /CUMM (0.0-0.2); ABSOLUTE EOSINOPHIL COUNT 0.1 /CUMM (0.0-0.7); ABSOLUTE GRANULOCYTE CT 6.3 /CUMM (1.4-6.5); ABSOLUTE LYMPH COUNT 1.8 /CUMM (1.2-3.4); ABSOLUTE MONOCYTE COUNT 0.5 /CUMM (0.10-0.60); BASOPHIL % 0.3 % (0.0-2.0); EOSINOPHIL % 0.7 % (0-5); GRANULOCYTE % 72.7 % (42.2-75.2); HEMATOCRIT 26.5 % (37-47); MEAN CORPUSCULAR HGB 28.2 PG (27.0-31.0); MEAN CORPUSCULAR HGB CONC 31.3 G/DL (33.0-37.0); MEAN CORPUSCULAR VOLUME 90.1 FL (81.0-99.0); MEAN PLATELET VOLUME 7.1 FL (7.4-10.4); PLATELET COUNT 426 /CUMM (130-400); RBC DISTRIBUTION WIDTH 15.5 % (11.5-14.5); RED BLOOD CELL CT 2.94 /CUMM (4.20-5.40); WHITE BLOOD CELL COUNT 8.6 /CUMM (4.8-10.8)
--- NOTE | 2017-10-16 22:56 | History & Physical ---
Rod JANG,[facility] 10/16/17 5792: General Information and HPI MD Statement: I have seen and personally examined LUIS TRIMBLE and documented this H&P. The patient is a 87 year old F who presented with a patient stated chief complaint of [leg injury]. Source of Information: patient Exam Limitations: no limitations History of Present Illness: The patient is a 87-year-old female with past medical history of hypertension, hyperlipidemia rheumatoid arthritis, MS diagnosed 45 years ago, hepatitis B ( blood transfusion 65y ago), GERD, constipation, , CKD stage 3, DVT s/p IVC, pheochromocytoma status post surgical removal and melanoma 1997 status post surgical removal. The patient is presenting to [place] ED on 10/16 with a complaint of R leg and foot injury. The patient was in a state of health until tonight. The patient was using her power wheelchair when she hit the TV. Heavy elephant statue accidentally fell on her right foot. The pain was unbearable prompting a visit to [place] ED. The pain was 10 out of 10 radiating from right foot to ankle to the right leg. Constantly there aggravated by movement no relieving factor. During our encounter the patient's pain had subsided because of the pain medication she received in ED. Her right foot was placed in a splint and her leg was wrapped with Pj bandage. On review of system patient denies fever chills chest pain shortness of breath abdominal pain nausea vomiting and diarrhea. She reports cold several weeks back and hoarseness which she attributes to speak loudly with her Patient lives at her house with her elderly was hard of hearing. She has an aid which comes and checks on her twice a day and helps her with daily activities. 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 Home Who Do You Live With? spouse Services at Home: Home Health Aide, Nursing Primary Language: Maori Smoking Status: Never Smoked ETOH Use: denies use Illicit Drug Use: denies illicit drug use Functional Ability ADLs Needs Assist: dressing, eating, toileting, bathing. Ambulation: wheelchair due to MS IADLs Needs Assist: shopping, housework, finances, food prep, telephone, transportation, medication admin. Review of Systems Review of Systems Constitutional: Reports: no symptoms, see HPI. EENTM: Reports: no symptoms. Cardiovascular: Reports: no symptoms. Respiratory: Reports: no symptoms. GI: Reports: no symptoms. Genitourinary: Reports: no symptoms. Musculoskeletal: Reports: see HPI. Skin: Reports: no symptoms. Neurological/Psychological: Reports: no symptoms. Hematologic/Endocrine: Reports: no symptoms. Exam & Diagnostic Data Last 24 Hrs of Vital Signs/I&O Vital Signs Date Time Temp Pulse Resp B/P B/P Pulse O2 O2 Flow FiO2 Mean Ox Delivery Rate 10/16 2325 84 16 179/81 96 Room Air 10/16 211 97.5 86 18 196/106 93 Room Air Intake & Output 10/17 0800 10/17 0000 10/16 1600 Intake Total 0 Output Total Balance 0 Intake, Oral 0 Physical Exam General Appearance Alert, Oriented X3, Cooperative Skin No Rashes Cardiovascular Normal S1, Normal S2 Lungs Clear to Auscultation, Normal Air Movement Neurological Normal Speech Body Front and Back (Adult) 1) R foot in sling, R lef pj wrapped tender to touch bruise on r leg Last 24 Hrs of Labs/Ron: Laboratory Tests 10/16/172054: Anion Gap 13, Estimated GFR 52 L, BUN/Creatinine Ratio 22.0, Glucose 90, Calcium 8.6, Total Bilirubin 0.3, AST 21, ALT 28, Alkaline Phosphatase 98, Total Protein 6.5, Albumin 3.6, Globulin 2.9, Albumin/Globulin Ratio 1.2, CBC w Diff NO MAN DIFF REQ, RBC 2.94 L, MCV 90.1, MCH 28.2, RDW 15.5 H, MPV 7.1 L, Gran % 72.7, Lymphocytes % 20.7, Monocytes % 5.6, Eosinophils % 0.7, Basophils % 0.3, Absolute Granulocytes 6.3, Absolute Lymphocytes 1.8, Absolute Monocytes 0.5, Absolute Eosinophils 0.1, Absolute Basophils 0, PUBS MCHC 31.3 L Diagnostic Data Other Results RY-ANKLE 3 OR MORE VIEWS R; XRY-FOOT COMPLETE, R; [id number], RIGHT IMPRESSION: 1. Right foot. Osteopenia. Slightly displaced transverse fracture through the neck of the second and third metatarsal. 2. Right ankle. Osteopenia. No displaced fracture. 3. Right tibia-fibula. Osteopenia. Old healed fracture of the proximal metadiaphysis of the tibia and fibula. No acute fracture. Assessment/Plan Assessment: The patient is a 87-year-old female with past medical history of hypertension, hyperlipidemia rheumatoid arthritis, MS diagnosed 45 years ago, hepatitis B ( blood transfusion 65y ago), GERD, constipation, CKD stage 3, DVT s/p IVC, pheochromocytoma status post surgical removal and melanoma 1997 status post surgical removal. The patient is presenting to [place] ED on 10/16 with a complaint of R foot pain radiating to R ankel and R leg 2/2 to injury when a decoration piece fell on her foot while manipulating wheelchair -VS 97.5, 86, 18, 196/106 recheck 151/79 93% on room air -Pertinent labs H/H 05/24 stable 426 platelet count #Imaging showing slightly displaced transverse fracture through the neck of second and third metatarsal. She is being admitted to general medicine floor and is being treated and evaluated as follow -Pain pathway, Tylenol and tramadol avoid narcotics -Orthopedic consult in the morning -PT evaluation -Nonweightbearing to right foot, currently in sling -STR #Chronic anemia H&H stable -continue to monitor #Thrombocytosis likely reactive -Continue to monitor #Chronic medical conditions hyperlipidemia, hypothyroidism, GERD, constipation, hypertension: Continue Lipitor, levothyroxine, omeprazole, MiraLAX and metoprolol #DNR/DNI/regular diet DVT prophylaxis with Lovenox As Ranked By This Provider Problem List: 1. Metatarsal fracture Core Measures/Misc (06/15) Acute Coronary Syndrome ACS Diagnosis: No Congestive Heart Failure Congestive Heart Failure Diagnosis No Cerebrovascular Accident CVA/TIA Diagnosis: No VTE (View Protocol) VTE Risk Factors Age>40 No Mechanical VTE Prophylaxis d/t N/A MechProphylax Ordered No VTE Pharm Prophylaxis d/t NA PharmProphylax ordered Sepsis (View protocol) Sepsis Present: No Kelly Miramontes 10/17/17 0101: General Information and HPI Allergies/Medications Home Med list Alendronate Sodium 70 MG TABLET 1 TAB PO QMON BONES (Reported) in the morning, at least 30 minutes before the first food, beverage, or medication of the day Aspirin (Ecotrin*) 81 MG TABLET.DR 1 TAB PO DAILY HEART (Reported) Atorvastatin Calcium 20 MG TABLET 1 TAB PO DAILY CHOLESTEROL (Reported) Ferrous Sulfate 325 MG (65 MG IRON) TABLET 1 TAB PO DAILY SUPPLEMENT ( Reported) Fish Oil/Borage/Flax/Om3,6,9#1 ([place] 3-6-9 1,200 MG Softgel) 1,200 MG CAPSULE 1 CAP PO DAILY SUPPLEMENT (Reported) Folic Acid 1 MG TABLET 1 TAB PO DAILY SUPPLEMENT (Reported) Levothyroxine Sodium 25 MCG TABLET 1 TAB PO DAILY AC THYROID (Reported) Metoprolol Succinate 25 MG TAB 1 TAB PO DAILY HEART/BP (Reported) Omeprazole 40 MG CAPSULE.DR 1 CAP PO DAILY GI (Reported) Sennosides (Senna) 8.6 MG TABLET 2 TAB PO DAILY SUPPLEMENT (Reported) Resident Review Statement Resident Statement: discussed with risk intern Other Findings: 87-year-old woman with past medical history of hypertension, hyperlipidemia, MS diagnosed 40 years ago, wheelchair bound for last 4-5 years, history of hepatitis B, GERD, constipation and rheumatoid arthritis presented to ER with chief complaint of right foot pain. According to patient she was trying to manipulate her wheelchair and accidentally hit the TV Which caused heavy piece of decoration fall onto her right foot. Upon our evaluation she is complaining of right foot pain. A splint was placed on her right foot and currently is wrapped with an Pj bandage. Other review of systems negative. She lives with her 90-year-old . She has an aide coming into her house daily. Upon arrival to the ER her temperature was 97.5, pulse 86, respiratory rate 18, blood pressure 190/106 and oxygen saturation 93% on room air. Physical exam: She is alert, awake and oriented. Her voice is hoarse. Heart regular rate and rhythm without murmurs. Lungs clear. Right foot bandage is in place. Swelling and ecchymosis of her right leg. Pertinent labs: H&H 8.3/26.5, platelet count 426. X-ray right foot and ankle and tibia fibula was done that showed osteopenia and slightly displaced transverse fracture through the neck of second and third metatarsal. In ER she was given tramadol 50 mg by mouth 1. Assessment and plan 87-year-old woman with past medical history of hypertension, hyperlipidemia, MS diagnosed 40 years ago, wheelchair bound for last 4-5 years, history of hepatitis B, GERD, constipation and rheumatoid arthritis found to have slightly displaced transverse fracture through the neck of second and third metatarsal status post trauma to her right foot. We will admit her on general medicine floor. Orthopedic consult in a.m. Pain management. Nonweightbearing to right foot. Confirm CMR in the morning. She goes to medicine shop in [place]. DVT prophylaxis. She might need STR upon discharge. CODE STATUS DNR/DNI. Boris JANG, [facility] 10/17/17 0402: Attending MD Review Statement Attending Statement Attending MD Statement: examined this patient, discuss w/resident/PA/BUILDING OPERATOR, agreed w/resident/PA/BUILDING OPERATOR, reviewed images, amended to note Attending Assessment/Plan: 87 yo F with h/o multiple sclerosis x 40+ years wheelchair bound with chronic RLE pain/numbness, HTN, GERD, Hep B, CKD stage 3, DVT s/p IVC, is here for evaluation of right foot pain raditing up the leg. Today at home, while trying to close the door her power wheelchair accidentally turned on and slid towards the TV cabinet hitting her right leg into the cabinet. She was trying to detangle her right leg when a heavy elephant statue over the cabinet fell over her right foot. Tramadol seems to have taken the edge off the pain. Vitals stable. Exam: AAO, right leg is in a splint placed in the ER. Difficult to palpate popliteal pulses, patient has reduced sensation to her right toes ( baseline). Ecchymosis noted to the right leg+, contracture+. Left foot power 3 -4/5, sensation intact. Labs: H/H 8.3/26.5 (baseline 8-07/24-30), normocytic anemia, BUN 22, creat 1.0. Foot/ankle xray: slightly displaced transverse fracture through neck of second and third metatarsal. Old healed fracture of proximal metadiaphysis of tibia and fibula. EKG: SR, no acute changes. Echo (2017): EF > 65%, stage 1 diastolic dysfunction. Assessment and plan: 1. Right foot/ leg pain s/p accidental injury 2. Metatarsal fracture of right foot 3. History of multiple sclerosis wheelchair bound 4. H/o DVT s/p IVC filter 5. Chronic anemia - Admit to general medicine - Fall precautions - Maintain right leg in splint, nonweight bearing. - Ortho consult in AM - Pain management with IV tylenol and PO tramadol - PT therapy, placement for STR - Case management consult (preference is [facility]) DVT ppx Hep SC. DNR/I. CMR to be confirmed and meds to be resumed in AM.
--- NOTE | 2017-10-17 04:05 | Admission Certification ---
Admission Certification Certification Statement - As attending physician, I certify that at the time of - admission, based on clinical presentation, severity of - symptoms, need for further diagnostic testing and - therapeutic interventions, and risk of adverse outcomes - without in-hospital treatment, in my clinical assessment, - this patient requires an acute hospital stay for a minimum - of two nights or longer. I have also considered psychsocial - factors such as support system, advanced age, financial - issues, cognitive issues, and failed out-patient treatments, - past re-admission history, safety of patient, and lack of - compliance as applicable. Specific rationale supporting this admission is: Foot injury, metatarsal fracture requires admission for pain management, ortho consult and eventual STR.
[2017-10-17 05:34] VITALS: BP 144/78
[2017-10-17 06:46] VITALS: BP 144/78
--- NOTE | 2017-10-17 07:52 | Discharge Summary ---
Visit Information Visit Dates Admission Date: 10/16/17 Discharge Date: 10/19/17 Hospital Course Course Attending Physician: Ashley Escalante MD Primary Care Physician: Kathy JANG,Juventino Hernández Hospital Course: 87-year-old woman with past medical history of hypertension, hyperlipidemia, MS diagnosed 40 years ago, wheelchair bound for last 4-5 years, history of hepatitis B, GERD, constipation and rheumatoid arthritis presented to ER with chief complaint of right foot pain. According to patient she was trying to manipulate her wheelchair and accidentally hit the TV Which caused heavy piece of decoration fall onto her right foot. Upon our evaluation she wascomplaining of right foot pain. A splint was placed on her right foot .Other review of systems negative. Upon arrival to the ER her temperature was 97.5, pulse 86, respiratory rate 18, blood pressure 190/106 and oxygen saturation 93% on room air. Physical exam: She is alert, awake and oriented. Her voice is hoarse. Heart regular rate and rhythm without murmurs. Lungs clear. Right foot bandage is in place. Swelling and ecchymosis of her right leg. Pertinent labs: H&H 8.3/26.5, platelet count 426. X-ray right foot and ankle and tibia fibula was done that showed osteopenia and slightly displaced transverse fracture through the neck of second and third metatarsal. In ER she was given tramadol 50 mg by mouth 1. she was admitted to for pain management of the fracutre. Ortho surgeon recommended cam walker boot and follow-up x-ray in 4 weeks. We continued all of her home medications without any complications. wounds on admission -pt noted wtih a vast 20x20 cm areas of violaceous hue to yael buttocks - unknown at present if begining sdti vs venous pooling, but willtreat as area of deep tissue injury precautiously as pt is immobile and incont -group 2 mattress with q 2 hour repositioning please - apply moisture barrier qs and after inc episodes please - pt should have cushion for wc reevaluated to determing if it has 'bottom out' Complications: PATIENT: LUIS TRIMBLE PRESENT AGE: 87 PATIENT ACCOUNT NO: [id number] : 29 LOCATION: [facility] ORDERING PHYSICIAN: Rey HERRERA SERVICE DATE: 10/16/17 EXAM TYPE: RAD - XRY-ANKLE 3 OR MORE VIEWS R; XRY-FOOT COMPLETE, R; XRY-TIBIA- FIBULA, RIGHT EXAMINATION: 1. Right foot. 2. Right ankle. 3. Right tibia-fibula. CLINICAL INFORMATION: Trauma. Pain. COMPARISON: Right tibia-fibula 09/27/2015 TECHNIQUE: 1. Right foot. 3 views 2. Right ankle. 3 views 3. Right tibia-fibula. 2 views FINDINGS: 1. Right foot. There is osteopenia. There is slightly displaced transverse fracture through the neck of the second and third metatarsal. 2. Right ankle. There is osteopenia. No displaced fracture. No dislocation. 3. Right tibia-fibula. There is osteopenia. There is a healed transverse fracture at the metadiaphysis of both the proximal tibia and fibula. There is residual deformity of both fractures. No acute fracture. No dislocation of the knee. IMPRESSION: 1. Right foot. Osteopenia. Slightly displaced transverse fracture through the neck of the second and third metatarsal. 2. Right ankle. Osteopenia. No displaced fracture. 3. Right tibia-fibula. Osteopenia. Old healed fracture of the proximal metadiaphysis of the tibia and fibula. No acute fracture. DICTATED BY: Alton Ferrari MD DATE/TIME DICTATED:10/16/172010 FIELD TECHNICAL SPECIALIST:XIOMARA DATE/TIME TRANSCRIBED:10/16/172010 CONFIDENTIAL, DO NOT COPY WITHOUT APPROPRIATE AUTHORIZATION. <Electronically signed in Other Vendor System> SIGNED BY: Alton Ferrari MD 10/16/172021 PATIENT: LUIS TRIMBLE PRESENT AGE: 87 PATIENT ACCOUNT NO: [id number] : 29 LOCATION: [facility] ORDERING PHYSICIAN: Rey HERRERA SERVICE DATE: 10/16/17 EXAM TYPE: RAD - XRY-ANKLE 3 OR MORE VIEWS R; XRY-FOOT COMPLETE, R; XRY-TIBIA- FIBULA, RIGHT EXAMINATION: 1. Right foot. 2. Right ankle. 3. Right tibia-fibula. CLINICAL INFORMATION: Trauma. Pain. COMPARISON: Right tibia-fibula 09/27/2015 TECHNIQUE: 1. Right foot. 3 views 2. Right ankle. 3 views 3. Right tibia-fibula. 2 views FINDINGS: 1. Right foot. There is osteopenia. There is slightly displaced transverse fracture through the neck of the second and third metatarsal. 2. Right ankle. There is osteopenia. No displaced fracture. No dislocation. 3. Right tibia-fibula. There is osteopenia. There is a healed transverse fracture at the metadiaphysis of both the proximal tibia and fibula. There is residual deformity of both fractures. No acute fracture. No dislocation of the knee. IMPRESSION: 1. Right foot. Osteopenia. Slightly displaced transverse fracture through the neck of the second and third metatarsal. 2. Right ankle. Osteopenia. No displaced fracture. 3. Right tibia-fibula. Osteopenia. Old healed fracture of the proximal metadiaphysis of the tibia and fibula. No acute fracture. DICTATED BY: Alton Ferrari MD DATE/TIME DICTATED:10/16/172010 FIELD TECHNICAL SPECIALIST:XIOMARA DATE/TIME TRANSCRIBED:10/16/172010 CONFIDENTIAL, DO NOT COPY WITHOUT APPROPRIATE AUTHORIZATION. <Electronically signed in Other Vendor System> SIGNED BY: Alton Ferrari MD 10/16/172021 ====== PATIENT: LUIS TRIMBLE PRESENT AGE: 87 PATIENT ACCOUNT NO: [id number] : 29 LOCATION: [facility] ORDERING PHYSICIAN: Rey HERRERA SERVICE DATE: 10/16/17 EXAM TYPE: RAD - XRY-ANKLE 3 OR MORE VIEWS R; XRY-FOOT COMPLETE, R; XRY-TIBIA- FIBULA, RIGHT EXAMINATION: 1. Right foot. 2. Right ankle. 3. Right tibia-fibula. CLINICAL INFORMATION: Trauma. Pain. COMPARISON: Right tibia-fibula 09/27/2015 TECHNIQUE: 1. Right foot. 3 views 2. Right ankle. 3 views 3. Right tibia-fibula. 2 views FINDINGS: 1. Right foot. There is osteopenia. There is slightly displaced transverse fracture through the neck of the second and third metatarsal. 2. Right ankle. There is osteopenia. No displaced fracture. No dislocation. 3. Right tibia-fibula. There is osteopenia. There is a healed transverse fracture at the metadiaphysis of both the proximal tibia and fibula. There is residual deformity of both fractures. No acute fracture. No dislocation of the knee. IMPRESSION: 1. Right foot. Osteopenia. Slightly displaced transverse fracture through the neck of the second and third metatarsal. 2. Right ankle. Osteopenia. No displaced fracture. 3. Right tibia-fibula. Osteopenia. Old healed fracture of the proximal metadiaphysis of the tibia and fibula. No acute fracture. DICTATED BY: Alton Ferrari MD DATE/TIME DICTATED:10/16/172010 FIELD TECHNICAL SPECIALIST:XIOMARA DATE/TIME TRANSCRIBED:10/16/172010 CONFIDENTIAL, DO NOT COPY WITHOUT APPROPRIATE AUTHORIZATION. <Electronically signed in Other Vendor System> SIGNED BY: Alton Ferrari MD 10/16/172021 Allergies: Coded Allergies: codeine (PASSED OUT AND ENDED UP ON THE FLOOR PER PT 10/16/17) Cephalosporins (Intermediate, DIARRHEA 11/12/16) Disposition Summary Disposition Principal Diagnosis: third metatarsal neck fractures on the right foot. Additional Diagnosis: history of MS Discharge Disposition: SNF Discharge Instructions General Discharge Information Code Status: Do Not Resucitate/Intubat Patient's Diet: heart healthy Patient's Activity: as tolerated Follow-Up Instructions/Appts: -Please follow-up with your primary care provider within 7 days after discharge. -We have made changes to your home medications, please read the instructions carefully. -Please come back to the hospital if your symptoms got worse. -follow up with Orthopedic Doctor 7 days after discharge. -follow up foot X ray in [address] Medications at Discharge Discharge Medications: Continue taking these medications: Levothyroxine Sodium (Levothyroxine Sodium) 25 MCG TABLET 1 Tablet ORAL DAILY BEFORE BREAKFAST Qty = 30 Comments: Last Taken: 10/19/17 Time: 6:30 am Atorvastatin Calcium (Atorvastatin Calcium) 20 MG TABLET 1 Tablet ORAL DAILY Qty = 30 Comments: Last Taken: 10/19/17 Time: 10:00 pm Omeprazole (Omeprazole) 40 MG CAPSULE.DR 1 Capsule ORAL DAILY Qty = 30 Comments: Last Taken: 10/19/17 Time: 6:30 am Metoprolol Succinate (Metoprolol Succinate) 25 MG TAB 1 Tablet ORAL DAILY Qty = 30 Comments: Last Taken: 10/19/17 Time: 9:30 am Alendronate Sodium (Alendronate Sodium) 70 MG TABLET 1 Tablet ORAL EVERY FRIDAY Qty = 4 Instructions: in the morning, at least 30 minutes before the first food, beverage, or medication of the day Comments: NOT TAKEN IN HOSPITAL Folic Acid (Folic Acid) 1 MG TABLET 1 Tablet ORAL DAILY Comments: Last Taken: 10/19/17 Time: 9:30 am Aspirin (Ecotrin*) 81 MG TABLET. 1 Tablet ORAL DAILY Comments: Last Taken: 10/19/17 Time: 9:30 am Fish Oil/Borage/Flax/Om3,6,9#1 ([place] 3-6-9 1,200 MG Softgel) 1,200 MG CAPSULE 1 Capsule ORAL DAILY Comments: NOT GIVEN IN HOSPITAL Sennosides (Senna) 8.6 MG TABLET 2 Tablet ORAL DAILY Comments: NOT TAKEN IN HOSPITAL Ferrous Sulfate (Ferrous Sulfate) 325 MG (65 MG IRON) TABLET 1 Tablet ORAL DAILY Comments: Last Taken: 10/19/17 Time: 9:30 am Copies To: Kathy JANG,Juventino Hernández; Chelsea JANG,Shant Dillon Attending MD Review Statement Other Findings: Agree with dc summary primarily taken care of by Dr. Card
--- NOTE | 2017-10-17 08:03 | Cons- Orthopedic ---
General Information and HPI Consulting Request Date of Consult: 10/17/17 Requested By: Jose Ramon Card MD Reason for Consult: Right foot fracture Source of Information: patient Exam Limitations: no limitations History of Present Illness: Patient is an 87-year-old female with complaints of right foot pain. She presented to the emergency room yesterday after dropping a object on her right foot. She had pain and difficulty bearing weight. He was brought into the emergency room where x-rays revealed fractures of the second and third metatarsal of the right foot. She was admitted to medical service for pain control. Allergies/Medications Allergies: Coded Allergies: codeine (PASSED OUT AND ENDED UP ON THE FLOOR PER PT 10/16/17) Cephalosporins (Intermediate, DIARRHEA 11/12/16) Home Med List: Alendronate Sodium 70 MG TABLET 1 TAB PO QMON BONES (Reported) in the morning, at least 30 minutes before the first food, beverage, or medication of the day Aspirin (Ecotrin*) 81 MG TABLET.DR 1 TAB PO DAILY HEART (Reported) Atorvastatin Calcium 20 MG TABLET 1 TAB PO DAILY CHOLESTEROL (Reported) Ferrous Sulfate 325 MG (65 MG IRON) TABLET 1 TAB PO DAILY SUPPLEMENT ( Reported) Fish Oil/Borage/Flax/Om3,6,9#1 ([place] 3-6-9 1,200 MG Softgel) 1,200 MG CAPSULE 1 CAP PO DAILY SUPPLEMENT (Reported) Folic Acid 1 MG TABLET 1 TAB PO DAILY SUPPLEMENT (Reported) Levothyroxine Sodium 25 MCG TABLET 1 TAB PO DAILY AC THYROID (Reported) Metoprolol Succinate 25 MG TAB 1 TAB PO DAILY HEART/BP (Reported) Omeprazole 40 MG CAPSULE.DR 1 CAP PO DAILY GI (Reported) Sennosides (Senna) 8.6 MG TABLET 2 TAB PO DAILY SUPPLEMENT (Reported) Current Medications: Current Medications Sig/Tonya Start time Last Medication Dose Route Stop Time Status Admin Acetaminophen 650 MG Q8 PRN 10/16 2330 AC PO Aspirin Buffered 81 MG DAILY 10/17 1000 AC PO Atorvastatin Calcium 20 MG 1700 10/17 1700 AC PO Enoxaparin Sodium 40 MG DAILY 10/17 1000 AC SC Ferrous Sulfate 325 MG DAILY 10/17 1000 AC PO Folic Acid 1 MG DAILY 10/17 1000 AC PO Levothyroxine Sodium 0.025 MG DAILY AC 10/17 0700 AC PO Metoprolol Succinate 25 MG DAILY 10/17 1000 AC PO Omeprazole 40 MG DAILY AC 10/17 0700 AC 10/17 PO 0634 Polyethylene Glycol 17 GM DAILY PRN 10/17 0015 AC PO Tramadol HCl 25 MG Q8P PRN 10/17 0800 AC PO Tramadol HCl 0 .STK-MED ONE 10/17 0152 DC PO Tramadol HCl 50 MG Q6 PRN 10/17 0015 DC 10/17 PO 0150 Tramadol HCl 0 .STK-MED ONE 10/16 1910 DC PO Tramadol HCl 50 MG ONCE ONE 10/16 1900 DC 10/16 PO 10/16 Past History Medical History Blood Transfusion Hx: Yes Type of Reaction: Other (see notes), HEP B FROM TRANSFUSION JAUNDICE Neurological: multiple sclerosis EENT: vocal cord paralysis Cardiovascular: hypertension, HYPERCOLESTERALEMIA Respiratory: NONE Gastrointestinal: GERD, CONSTIPATION Hepatic: hepatitis B Renal: NONE Musculoskeletal: rheumatoid arthritis, stage 2 back ulcer resolved Psychiatric: NONE Endocrine: NONE Blood Disorders: NONE Cancer(s): melanoma 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 Home Who Do You Live With? spouse Services at Home: Home Health Aide, Nursing Primary Language: Greenlandic Smoking Status: Never Smoked ETOH Use: denies use Illicit Drug Use: denies illicit drug use Functional Ability ADLs Needs Assist: dressing, eating, toileting, bathing. Ambulation: wheelchair due to MS IADLs Needs Assist: shopping, housework, finances, food prep, telephone, transportation, medication admin. Exam & Diagnostic Data Vital Signs and I&O Vital Signs Date Time Temp Pulse Resp B/P B/P Pulse O2 O2 Flow FiO2 Mean Ox Delivery Rate 10/17 0646 97.9 82 18 144/78 90 10/17 0534 97.9 82 18 144/78 91 Room Air 10/17 0437 97.9 82 18 166/51 94 Room Air 10/17 0147 97.9 89 18 151/79 97 Room Air 10/16 2325 84 16 179/81 96 Room Air 10/167 97.5 86 18 196/106 93 Room Air Intake & Output 10/17 1600 10/17 0800 10/17 0000 10/16 1600 10/16 0800 10/16 0000 Intake Total 200 0 Output Total Balance 200 0 Intake, Oral 200 0 Patient 180 lb Weight On physical exam the patient's awake and alert. Head and neck exam reveals a normocephalic atraumatic skull. Pupils are equal round react light commissure. Neck is supple with no JVD. No pain with range of motion of the cervical spine or tenderness to palpation cervical spine. Lungs are clear bilaterally. Cardiovascular exam reveals S1 and S2. Abdomen is round soft nontender. Right upper extremity is within normal limits with normal range of motion and grossly neurovascular intact. Bilateral lower 70 is grossly neurovascular intact. Right foot is swollen with tenderness to palpation on the dorsal aspect of the right foot. He does have palpable pedal pulses. There are no open wounds or abrasions. X-rays of the right foot reveal nondisplaced second and third metatarsal fractures of the metatarsal necks. Assessment/Plan Assessment/Plan 87-year-old female severe osteopenia with second and third metatarsal neck fractures on the right foot. Plan for her would be weightbearing as tolerated in a cam walker boot. Follow-up in office in 4 weeks for repeat x-ray. Consult Acknowledgment - Thank you for your consult request.
[2017-10-17 08:20] LABS: ABSOLUTE BASOPHIL COUNT 0 /CUMM (0.0-0.2); ABSOLUTE EOSINOPHIL COUNT 0.1 /CUMM (0.0-0.7); ABSOLUTE GRANULOCYTE CT 3.5 /CUMM (1.4-6.5); ABSOLUTE LYMPH COUNT 1.7 /CUMM (1.2-3.4); ABSOLUTE MONOCYTE COUNT 0.4 /CUMM (0.10-0.60); BASOPHIL % 0.4 % (0.0-2.0); EOSINOPHIL % 1.7 % (0-5); HEMATOCRIT 24.3 % (37-47); MEAN CORPUSCULAR HGB CONC 31.9 G/DL (33.0-37.0); MEAN PLATELET VOLUME 7.2 FL (7.4-10.4); PLATELET COUNT 355 /CUMM (130-400); RBC DISTRIBUTION WIDTH 14.8 % (11.5-14.5); RED BLOOD CELL CT 2.68 /CUMM (4.20-5.40); WHITE BLOOD CELL COUNT 5.7 /CUMM (4.8-10.8)
--- NOTE | 2017-10-17 08:37 | PN- Housestaff ---
Papi Arias MD,[facility] 10/17/17 0837: Subjective Follow-up For: Displaced fracture of 2nd and 3rd metatarsal joint Tele-Events Since Last Visit: No tele, GM patient Subjective: Patient visited today, was lying in bed comfortably in no acute distress, was alert and oriented. She had no complaint except pain in the foot with motion. No fever or chills, no shortness of breathing, no chest pain, no other events. Review of Systems Constitutional: Reports: see HPI. Objective Last 24 Hrs of Vital Signs/I&O Vital Signs Date Time Temp Pulse Resp B/P B/P Pulse O2 O2 Flow FiO2 Mean Ox Delivery Rate 10/17 1423 98.3 77 18 120/70 91 Room Air 10/17 1115 Room Air 10/17 1101 Room Air 10/17 0929 140/74 10/17 0646 97.9 82 18 144/78 90 10/17 0534 97.9 82 18 144/78 91 Room Air 10/17 0437 97.9 82 18 166/51 94 Room Air 10/17 0147 97.9 89 18 151/79 97 Room Air 10/16 2325 84 16 179/81 96 Room Air 10/16 2117 97.5 86 18 196/106 93 Room Air Intake & Output 10/17 1600 10/17 0800 10/17 0000 Intake Total 400 200 0 Output Total Balance 400 200 0 Intake, Oral 400 200 0 Patient 180 lb Weight Physical Exam General Appearance: Alert, Oriented X3, Cooperative, No Acute Distress Skin: skin lesion in the back Skin Temp/Moisture Exam: Warm/Dry Sepsis Skin Exam (color): Normal for Ethnicity HEENT: Atraumatic, EOMI, Mucous Membr. moist/pink Cardiovascular: Regular Rate, Normal S1, Normal S2 Lungs: decreased air entry Abdomen: Normal Bowel Sounds, Soft, No Tenderness Neurological: Normal Speech Extremities: edema in the left hand, she related to node removal after melanoma surgery right leg in splint, decreased sensation that she noted to be chronic, could not wiggle toes due to pain Current Medications: Current Medications Sig/Tonya Start time Last Medication Dose Route Stop Time Status Admin Acetaminophen 650 MG Q8 PRN 10/16 2330 AC PO Aspirin Buffered 81 MG DAILY 10/17 1000 AC 10/17 PO 0928 Atorvastatin Calcium 20 MG 1700 10/17 1700 AC PO Enoxaparin Sodium 40 MG DAILY 10/17 1000 AC 10/17 SC 0928 Ferrous Sulfate 325 MG DAILY 10/17 1000 AC 10/17 PO 09 Folic Acid 1 MG DAILY 10/17 1000 AC 10/17 PO 09 Levothyroxine Sodium 0.025 MG DAILY AC 10/17 0700 AC 10/17 PO 09 Metoprolol Succinate 25 MG DAILY 10/17 1000 AC 10/17 PO 0929 Omeprazole 40 MG DAILY AC 10/17 0700 AC 10/17 PO 0634 Polyethylene Glycol 17 GM DAILY PRN 10/17 0015 AC PO Tramadol HCl 25 MG Q8P PRN 10/17 0800 AC PO Tramadol HCl 0 .STK-MED ONE 10/17 0152 DC PO Tramadol HCl 50 MG Q6 PRN 10/17 14 DC 10/17 PO 0150 Tramadol HCl 0 .STK-MED ONE 10/16 191 DC PO Tramadol HCl 50 MG ONCE ONE 10/16 1899 DC 10/16 PO 10/16 Last 24 Hrs of Lab/Ron Results Last 24 Hrs of Labs/Mics: Laboratory Tests 10/17/17625: CBC w Diff NO MAN DIFF REQ, RBC 2.68 L, MCV 91.0, MCH 29.0, RDW 14.8 H, MPV 7.2 L, Gran % 61.0, Lymphocytes % 29.9, Monocytes % 7.0, Eosinophils % 1.7, Basophils % 0.4, Absolute Granulocytes 3.5, Absolute Lymphocytes 1.7, Absolute Monocytes 0.4, Absolute Eosinophils 0.1, Absolute Basophils 0, PUBS MCHC 31.9 L 10/16/172054: Anion Gap 13, Estimated GFR 52 L, BUN/Creatinine Ratio 22.0, Glucose 90, Calcium 8.6, Total Bilirubin 0.3, AST 21, ALT 28, Alkaline Phosphatase 98, Total Protein 6.5, Albumin 3.6, Globulin 2.9, Albumin/Globulin Ratio 1.2, CBC w Diff NO MAN DIFF REQ, RBC 2.94 L, MCV 90.1, MCH 28.2, RDW 15.5 H, MPV 7.1 L, Gran % 72.7, Lymphocytes % 20.7, Monocytes % 5.6, Eosinophils % 0.7, Basophils % 0.3, Absolute Granulocytes 6.3, Absolute Lymphocytes 1.8, Absolute Monocytes 0.5, Absolute Eosinophils 0.1, Absolute Basophils 0, PUBS MCHC 31.3 L Assessment/Plan Assessment: Patient is a 87-year-old female presented with sudden right foot pain after trauma PMH: HTN, Hlip, RA, MS diagnosed 45 years ago, hepatitis B (blood transfusion 65y ago), GERD, constipation, CKD stage 3, DVT s/p IVC, pheochromocytoma status post surgical removal and melanoma 1997 status post surgical removal. VS at admission: 97.5, 86, 18, 196/106 recheck 151/79 93% on room air Pertinent labs at admission: H/H 8.3/ stable 426 platelet count Imaging at adimission: 1. Right foot. Osteopenia. Slightly displaced transverse fracture through the neck of the second and third metatarsal. 2. Right ankle. Osteopenia. No displaced fracture. 3. Right tibia-fibula. Osteopenia. Old healed fracture of the proximal metadiaphysis of the tibia and fibula. No acute fracture. She was admitted to general medicine floor (temproray placed in tele floor due to placement) and is being treated and evaluated as follow: Mild Displaced Fx of metatarsal bones Patient is ambulating with a wheelchair and the need for PT and rehabilitation is questionable, yet we will do PT evaluation and pursue with conservative treatment -Pain pathway, Tylenol and tramadol avoid narcotics -Orthopedic consult in the morning -PT evaluation -Nonweightbearing to right foot, currently in sling -STR Chronic anemia H&H stable -continue to monitor Thrombocytosis likely reactive -Continue to monitor Chronic medical conditions hyperlipidemia, hypothyroidism, GERD, constipation, hypertension: - Continue Lipitor, levothyroxine, omeprazole, MiraLAX and metoprolol DNR/DNI Regular diet DVT prophylaxis with Lovenox Problem List: 1. Metatarsal fracture Pain Ratin Pain Location: Continue current plan Pain Goal: Pain 4 or less Pain Plan: Pain pathway continue sling as is painless with no motion Tomorrow's Labs & Rationales: Jose Ramon Mendez 10/17/17 6975: Attending MD Review Statement Attending Statement Attending MD Statement: examined this patient, discuss w/resident/PA/REPAIR MECHANIC, agreed w/resident/PA/REPAIR MECHANIC, reviewed EMR data (avail), discussed with nursing, discussed with case mgmt Attending Assessment/Plan: agree with the above assessment and plan. pt needing MITUL. case management working on that.
[2017-10-17 14:23] VITALS: BP 120/70
--- NOTE | 2017-10-17 15:51 | Patient Discharge Instructions ---
Discharge Instructions General Discharge Information You were seen/treated for: Foot Fracture Special Instructions: -Please follow-up with your primary care provider within 7 days after discharge. -We have made changes to your home medications, please read the instructions carefully. -Please come back to the hospital if your symptoms got worse. follow up with Orthopedic Doctor 7 days after discharge. follow up foot X ray in [address] -follow up with Orthopedic Doctor 7 days after discharge. -follow up foot X ray in [address] Diet Recommended Diet: Heart Healthy Activity Activity Self Limited: Yes Acute Coronary Syndrome Inclusion Criteria At DC or during hospital stay patient has or had the following: ACS DIAGNOSIS No Discharge Core Measures Meds if any: Prescribed or Continued at Discharge Meds if any: NOT Prescribed or Continued at Discharge Congestive Heart Failure Inclusion Criteria At DC or during hospital stay patient has or had the following: CHF DIAGNOSIS No Discharge Core Measures Meds if any: Prescribed or Continued at Discharge Meds if any: NOT Prescribed or Continued at Discharge Cerebrovascular accident Inclusion Criteria At DC or during hospital stay patient has or had the following: CVA/TIA Diagnosis No Discharge Core Measures Meds if any: Prescribed or Continued at Discharge Meds if any: NOT Prescribed or Continued at Discharge Venous thromboembolism Inclusion Criteria VTE Diagnosis No VTE Type NONE VTE Confirmed by (Test) NONE Discharge Core Measures - Per Current guidelines, there needs to be overlap - treatment for the first 5 days of Warfarin therapy. - If discharged on Warfarin prior to 5 days of - overlap therapy, the patient will need to be - assessed for post discharge needs including - *Post discharge parental anticoagulation - *Warfarin and/or parental anticoagulation education - *Follow up date to check INR post discharge At least 5 days overlap therapy as Inpatient No Meds if any: Prescribed or Continued at Discharge Note: Overlap Therapy is Warfarin and Anticoagulant Meds if any: NOT Prescribed or Continued at Discharge
[2017-10-17 22:26] VITALS: BP 118/66
--- NOTE | 2017-10-18 05:55 | PN- Housestaff ---
Christal Clancy 10/18/17 0554: Subjective Follow-up For: Displaced fracture of 2nd and 3rd metatarsal joint Tele-Events Since Last Visit: off tele Subjective: I have seen and examined the patient. She still have pain the right foot. no cc sob N/V/D for now. Review of Systems Constitutional: Reports: see HPI. Objective Last 24 Hrs of Vital Signs/I&O Vital Signs Date Time Temp Pulse Resp B/P B/P Pulse O2 O2 Flow FiO2 Mean Ox Delivery Rate 10/18 0623 98.9 80 18 138/70 91 Room Air 10/17 2226 99.0 82 18 118/66 89 Room Air 10/17 1423 98.3 77 18 120/70 91 Room Air 10/17 1115 Room Air 10/17 1101 Room Air 10/17 0929 140/74 Intake & Output 10/18 0800 10/18 0000 10/17 1600 Intake Total 60 160 400 Output Total Balance 60 160 400 Intake, Oral 60 160 400 Number 0 0 Bowel Movements Patient 81.647 kg Weight Physical Exam General Appearance: Alert, Oriented X3, Cooperative Other Physical Findings: Cardiovascular: Regular Rate, Normal S1, Normal S2 Lungs: decreased BL mildly Abdomen: Normal Bowel Sounds, Soft, No Tenderness Neurological: Normal Speech Extremities: edema in the left hand, she related to node removal after melanoma surgery right leg in splint, able to wiggle toes, cappilallry feeling NL Assessment/Plan Assessment: Patient is a 87-year-old female presented with sudden right foot pain after trauma PMH: HTN, Hlip, RA, MS diagnosed 45 years ago, hepatitis B (blood transfusion 65y ago), GERD, constipation, CKD stage 3, DVT s/p IVC, pheochromocytoma status post surgical removal and melanoma 1997 status post surgical removal. VS at admission: 97.5, 86, 18, 196/106 recheck 151/79 93% on room air Pertinent labs at admission: H/H 8.3/26 stable 426 platelet count Imaging at adimission: 1. Right foot. Osteopenia. Slightly displaced transverse fracture through the neck of the second and third metatarsal. 2. Right ankle. Osteopenia. No displaced fracture. 3. Right tibia-fibula. Osteopenia. Old healed fracture of the proximal metadiaphysis of the tibia and fibula. No acute fracture. [facility] and is being treated and evaluated as follow: Mild Displaced Fx of metatarsal bones Patient is ambulating with a wheelchair and the need for PT and rehabilitation is questionable, yet we will do PT evaluation and pursue with conservative treatment -Pain pathway, Tylenol and tramadol avoid narcotics -Orthopedic consult appreciated -PT evaluation -Nonweightbearing to right foot, currently in sling -STR on Friday on Friday Chronic anemia H&H stable -cbc 7.3 -we will recheck it stat and check guiac stools as well. -dc levonox Chronic medical conditions hyperlipidemia, hypothyroidism, GERD, constipation, hypertension: - Continue Lipitor, levothyroxine, omeprazole, MiraLAX and metoprolol chronic wounds: pt noted wtih a vast 20x20 cm areas of violaceous hue to yael buttocks - unknown at present if begining sdti vs venous pooling, but willtreat as area of deep tissue injury precautiously as pt is immobile and incont recommendation PEr wound care: group 2 mattress with q 2 hour repositioning please - apply moisture barrier qs and after inc episodes please - pt should have cushion for wc reevaluated to determing if it has 'bottom out' DNR/DNI Regular diet DVT prophylaxis with ALPS off levonox due to low hg Problem List: 1. Anemia 2. Metatarsal fracture Pain Ratin Pain Location: right foot Pain Goal: Pain 4 or less Pain Plan: same Tomorrow's Labs & Rationales: cbc bep Donnie Martinez MD 10/18/17 1052: Attending MD Review Statement Attending Statement Attending MD Statement: examined this patient, discuss w/resident/PA/WEEKDAY BABYSITTER, agreed w/resident/PA/WEEKDAY BABYSITTER, discussed with family, reviewed EMR data (avail), discussed with nursing, discussed with case mgmt, reviewed images, amended to note Attending Assessment/Plan: Impression 87 year old woman -Right foot/ leg pain s/p accidental injury resulting in a metatarsal fracture of right foot -History of multiple sclerosis wheelchair bound -H/o DVT s/p IVC filter -Chronic anemia Plan - GM hold - awaiting STR admission - pt follow up -orthopedic consultation noted, f/u recommendations- plan for f/u in 4wks with xray with orthopedics after dc - Fall precautions - pain control - PT therapy, placement for STR DVT prophylaxis at all times DNR/DNI
[2017-10-18 06:23] VITALS: BP 138/70
[2017-10-18 07:14] LABS: ABSOLUTE BASOPHIL COUNT 0 /CUMM (0.0-0.2); ABSOLUTE EOSINOPHIL COUNT 0.1 /CUMM (0.0-0.7); ABSOLUTE GRANULOCYTE CT 3.3 /CUMM (1.4-6.5); ABSOLUTE LYMPH COUNT 1.6 /CUMM (1.2-3.4); ABSOLUTE MONOCYTE COUNT 0.4 /CUMM (0.10-0.60); BASOPHIL % 0.4 % (0.0-2.0); EOSINOPHIL % 1.5 % (0-5); GRANULOCYTE % 60.6 % (42.2-75.2); HEMATOCRIT 23.1 % (37-47); MEAN CORPUSCULAR HGB 28.5 PG (27.0-31.0); MEAN CORPUSCULAR HGB CONC 31.6 G/DL (33.0-37.0); MEAN CORPUSCULAR VOLUME 90.1 FL (81.0-99.0); MEAN PLATELET VOLUME 7.1 FL (7.4-10.4); PLATELET COUNT 327 /CUMM (130-400); RED BLOOD CELL CT 2.57 /CUMM (4.20-5.40); WHITE BLOOD CELL COUNT 5.4 /CUMM (4.8-10.8)
[2017-10-18 09:54] LABS: ABSOLUTE BASOPHIL COUNT 0 /CUMM (0.0-0.2); ABSOLUTE EOSINOPHIL COUNT 0.1 /CUMM (0.0-0.7); ABSOLUTE GRANULOCYTE CT 4.5 /CUMM (1.4-6.5); ABSOLUTE LYMPH COUNT 1.7 /CUMM (1.2-3.4); ABSOLUTE MONOCYTE COUNT 0.4 /CUMM (0.10-0.60); BASOPHIL % 0.5 % (0.0-2.0); EOSINOPHIL % 1.4 % (0-5); GRANULOCYTE % 67.7 % (42.2-75.2); HEMATOCRIT 24.2 % (37-47); MEAN CORPUSCULAR HGB 28.3 PG (27.0-31.0); MEAN CORPUSCULAR HGB CONC 31.2 G/DL (33.0-37.0); MEAN CORPUSCULAR VOLUME 90.7 FL (81.0-99.0); MEAN PLATELET VOLUME 7.6 FL (7.4-10.4); PLATELET COUNT 357 /CUMM (130-400); RED BLOOD CELL CT 2.67 /CUMM (4.20-5.40); WHITE BLOOD CELL COUNT 6.6 /CUMM (4.8-10.8)
[2017-10-18 14:30] VITALS: BP 168/80; BP 168/88
[2017-10-18 22:18] VITALS: BP 122/60
[2017-10-19 07:25] VITALS: BP 118/67
[2017-10-19 09:13] LABS: ABSOLUTE BASOPHIL COUNT 0 /CUMM (0.0-0.2); ABSOLUTE EOSINOPHIL COUNT 0.1 /CUMM (0.0-0.7); ABSOLUTE GRANULOCYTE CT 3.7 /CUMM (1.4-6.5); ABSOLUTE LYMPH COUNT 1.4 /CUMM (1.2-3.4); ABSOLUTE MONOCYTE COUNT 0.4 /CUMM (0.10-0.60); BASOPHIL % 0.2 % (0.0-2.0); EOSINOPHIL % 1.4 % (0-5); GRANULOCYTE % 65.9 % (42.2-75.2); HEMATOCRIT 24.4 % (37-47); MEAN CORPUSCULAR HGB 28.5 PG (27.0-31.0); MEAN CORPUSCULAR HGB CONC 31.5 G/DL (33.0-37.0); MEAN CORPUSCULAR VOLUME 90.3 FL (81.0-99.0); MEAN PLATELET VOLUME 7.3 FL (7.4-10.4); PLATELET COUNT 345 /CUMM (130-400); RBC DISTRIBUTION WIDTH 14.8 % (11.5-14.5); WHITE BLOOD CELL COUNT 5.6 /CUMM (4.8-10.8)
--- NOTE | 2017-10-19 10:07 | Cons- Medical ---
General Information and HPI Allergies/Medications Allergies: Coded Allergies: codeine (PASSED OUT AND ENDED UP ON THE FLOOR PER PT 10/16/17) Cephalosporins (Intermediate, DIARRHEA 11/12/16) Home Med List: Alendronate Sodium 70 MG TABLET 1 TAB PO QMON BONES (Reported) in the morning, at least 30 minutes before the first food, beverage, or medication of the day Aspirin (Ecotrin*) 81 MG TABLET.DR 1 TAB PO DAILY HEART (Reported) Atorvastatin Calcium 20 MG TABLET 1 TAB PO DAILY CHOLESTEROL (Reported) Ferrous Sulfate 325 MG (65 MG IRON) TABLET 1 TAB PO DAILY SUPPLEMENT ( Reported) Fish Oil/Borage/Flax/Om3,6,9#1 (Morris 3-6-9 1,200 MG Softgel) 1,200 MG CAPSULE 1 CAP PO DAILY SUPPLEMENT (Reported) Folic Acid 1 MG TABLET 1 TAB PO DAILY SUPPLEMENT (Reported) Levothyroxine Sodium 25 MCG TABLET 1 TAB PO DAILY AC THYROID (Reported) Metoprolol Succinate 25 MG TAB 1 TAB PO DAILY HEART/BP (Reported) Omeprazole 40 MG CAPSULE.DR 1 CAP PO DAILY GI (Reported) Sennosides (Senna) 8.6 MG TABLET 2 TAB PO DAILY SUPPLEMENT (Reported) Past History Travel History Traveled to [place] past 21 day No Medical History Blood Transfusion Hx: Yes Type of Reaction: Other (see notes), HEP B FROM TRANSFUSION JAUNDICE Neurological: multiple sclerosis EENT: vocal cord paralysis Cardiovascular: hypertension, HYPERCOLESTERALEMIA Respiratory: NONE Gastrointestinal: GERD, CONSTIPATION Hepatic: hepatitis B Renal: NONE Musculoskeletal: rheumatoid arthritis, stage 2 back ulcer resolved Psychiatric: NONE Endocrine: NONE Blood Disorders: NONE Cancer(s): 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 Home Who Do You Live With? spouse Services at Home: Home Health Aide, Nursing Primary Language: Bulgarian Smoking Status: Never Smoked ETOH Use: denies use Illicit Drug Use: denies illicit drug use Functional Ability ADLs Needs Assist: dressing, eating, toileting, bathing. Ambulation: wheelchair due to MS IADLs Needs Assist: shopping, housework, finances, food prep, telephone, transportation, medication admin. Assessment/Plan Consult Acknowledgment - Thank you for your consult request.
--- NOTE | 2017-10-19 10:09 | PN- Housestaff ---
Renata JANG,Ashtyn 10/19/17 1009: Subjective Follow-up For: Displaced fracture of 2nd and 3rd metatarsal joint Subjective: patient still admits to right foot pain. no other complaints. no events overnight. Review of Systems Constitutional: Reports: no symptoms. Musculoskeletal: Reports: see HPI, joint pain. Objective Last 24 Hrs of Vital Signs/I&O Vital Signs Date Time Temp Pulse Resp B/P B/P Pulse O2 O2 Flow FiO2 Mean Ox Delivery Rate 10/19 1354 97.5 98 20 130/60 96 Room Air 10/19 1240 97.9 76 20 128/68 10/19 0920 128/68 10/19 0725 97.9 76 20 118/67 90 Room Air 10/18 2218 98.1 80 20 122/60 90 Room Air Intake & Output 10/19 1600 10/19 0800 10/19 0000 Intake Total 360 360 Output Total Balance 360 360 Intake, Oral 360 360 Physical Exam General Appearance: Alert, Oriented X3, Cooperative, No Acute Distress Cardiovascular: Regular Rate, Normal S1, Normal S2, No Murmurs Lungs: Clear to Auscultation Abdomen: Normal Bowel Sounds, Soft, No Tenderness Extremities: Normal Pulses, right splint. sensation intact. able to move foot but anxious to do so , decreased strength. Current Medications: Current Medications Sig/Tonya Start time Last Medication Dose Route Stop Time Status Admin Acetaminophen 650 MG Q8 PRN 10/16 2330 DCD 10/17 PO 1732 Aspirin Buffered 81 MG DAILY 10/17 1000 DCD 10/19 PO 0920 Atorvastatin Calcium 20 MG 1700 10/17 1700 DCD 10/18 PO 2203 Ferrous Sulfate 325 MG DAILY 10/17 1000 DCD 10/19 PO 0920 Folic Acid 1 MG DAILY 10/17 1000 DCD 10/19 PO 0920 Levothyroxine Sodium 0.025 MG DAILY AC 10/17 0700 DCD 10/19 PO 0632 Metoprolol Succinate 25 MG DAILY 10/17 1000 DCD 10/19 PO 0920 Omeprazole 40 MG DAILY AC 10/17 0700 DCD 10/19 PO 0632 Polyethylene Glycol 17 GM DAILY PRN 10/17 0015 DCD PO Tramadol HCl 25 MG Q8P PRN 10/17 0800 DCD 10/19 PO 0632 Last 24 Hrs of Lab/Ron Results Last 24 Hrs of Labs/Mics: Laboratory Tests 10/19/17 0800: Anion Gap 8, Estimated GFR 47 L, BUN/Creatinine Ratio 15.5, CBC w Diff NO MAN DIFF REQ, RBC 2.70 L, MCV 90.3, MCH 28.5, RDW 14.8 H, MPV 7.3 L, Gran % 65.9, Lymphocytes % 25.9, Monocytes % 6.6, Eosinophils % 1.4, Basophils % 0.2, Absolute Granulocytes 3.7, Absolute Lymphocytes 1.4, Absolute Monocytes 0.4, Absolute Eosinophils 0.1, Absolute Basophils 0, PUBS MCHC 31.5 L Assessment/Plan Assessment: Patient is a 87-year-old female presented with sudden right foot pain after trauma PMH: HTN, Hlip, RA, MS diagnosed 45 years ago, hepatitis B (blood transfusion 65y ago), GERD, constipation, CKD stage 3, DVT s/p IVC, pheochromocytoma status post surgical removal and melanoma 1997 status post surgical removal. VS at admission: 97.5, 86, 18, 196/106 recheck 151/79 93% on room air Pertinent labs at admission: H/H 8.3/ stable 426 platelet count Imaging at adimission: 1. Right foot. Osteopenia. Slightly displaced transverse fracture through the neck of the second and third metatarsal. 2. Right ankle. Osteopenia. No displaced fracture. 3. Right tibia-fibula. Osteopenia. Old healed fracture of the proximal metadiaphysis of the tibia and fibula. No acute fracture. She was admitted to general medicine floor ([facility] placed in tele floor due to placement) and is being treated and evaluated as follow: Mild Displaced Fx of metatarsal bones Patient is ambulating with a wheelchair and the need for PT and rehabilitation is questionable, yet we will do PT evaluation and pursue with conservative treatment -Pain pathway, Tylenol and tramadol avoid narcotics in this elderly patient. -Orthopedic consult appreciated -PT evaluation -Non-weightbearing to right foot, currently in sling -STR today- [facility] Chronic anemia H&H stable -cbc 7.7 -chronically low during this stay -dc lovenox Chronic medical conditions hyperlipidemia, hypothyroidism, GERD, constipation, hypertension: - Continue Lipitor, levothyroxine, omeprazole, MiraLAX and metoprolol chronic wounds: pt noted wtih a vast 20x20 cm areas of violaceous hue to bilateral buttocks - unknown at present if begining sdti vs venous pooling, but willtreat as area of deep tissue injury precautiously as pt is immobile and incont recommendation PEr wound care: group 2 mattress with q 2 hour repositioning please - apply moisture barrier qs and after inc episodes please - pt should have cushion for wc reevaluated to determing if it has 'bottom out' DNR/DNI Regular diet DVT prophylaxis with ALPS off lovenox due to low hg Problem List: 1. Metatarsal fracture Pain Ratin Pain Location: right foot Pain Goal: Pain 4 or less Pain Plan: prn Tomorrow's Labs & Rationales: dc Donnie Martinez MD 10/19/17 1053: Attending MD Review Statement Attending Statement Attending MD Statement: examined this patient, discuss w/resident/PA/GLASS SCULLION, agreed w/resident/PA/GLASS SCULLION, discussed with family, reviewed EMR data (avail), discussed with nursing, discussed with case mgmt, reviewed images, amended to note Attending Assessment/Plan: Impression 87 year old woman -Right foot/ leg pain s/p accidental injury resulting in a metatarsal fracture of right foot -History of multiple sclerosis wheelchair bound -H/o DVT s/p IVC filter -Chronic anemia Plan - awaiting STR admission - pt follow up -orthopedic consultation noted, f/u recommendations- plan for f/u in 4wks with xray with orthopedics after dc - Fall precautions - pain control - PT therapy, placement for STR DVT prophylaxis at all times DNR/DNI
[2017-10-19 12:40] VITALS: BP 128/68
[2017-10-19 13:54] VITALS: BP 130/60
== END 2017-10-19 14:25 | DRG 563 ==
LOC: ERH 18:47 → ERHI 22:46 → 1NO 22:46 → ENRESERV 10-17 04:19 → 1NO 10-17 04:46 → ENTRNSPT 10-18 13:30 → EDTRNSPT 10-18 13:47 → EDTRNSPTSTS 10-18 13:47 → 2NA 10-18 14:03 → CMPTRNSPT 10-18 14:08 → ENPENDDIS 10-19 12:31 → 2NA 10-19 14:25
PROVIDERS: Internal Medicine; Physician Assistant Medical; Radiology Vascular & Interventional Radiology
DX: S92.321A Displaced fracture of second metatarsal bone, right foot, initial encounter for closed fracture (principal); L89.310 Pressure ulcer of right buttock, unstageable; G35 Multiple sclerosis; L89.320 Pressure ulcer of left buttock, unstageable; D64.9 Anemia, unspecified; N18.3 Chronic kidney disease, stage 3 (moderate); D47.3 Essential (hemorrhagic) thrombocythemia; T14.8XXA Other injury of unspecified body region, initial encounter; M06.9 Rheumatoid arthritis, unspecified; I12.9 Hypertensive chronic kidney disease with stage 1 through stage 4 chronic kidney disease, or unspecified chronic kidney disease; M85.80 Other specified disorders of bone density and structure, unspecified site; S92.331A Displaced fracture of third metatarsal bone, right foot, initial encounter for closed fracture; E78.5 Hyperlipidemia, unspecified; Z99.3 Dependence on wheelchair; K59.00 Constipation, unspecified; K21.9 Gastro-esophageal reflux disease without esophagitis; Z66 Do not resuscitate; W20.8XXA Other cause of strike by thrown, projected or falling object, initial encounter; Z86.718 Personal history of other venous thrombosis and embolism
CPT/HCPCS: 1NP; 2NAP; ERO; 36415; 73590-RT; 73610-RT; 73630-RT; 82436; 93005; 93010; J1650; J3490